=== PATIENT | male | born 1950 | race Caucasian/White ===

== ENCOUNTER → 2017-05-03 | Day surgery (SDC) | payer MEDICARE, OTHER ==
[~2017-05-03] MED LIST: BUPIVACAINE HCL 0.5 % INJ/PF 30 ML SDV ONE; LIDOCAINE 1% INJ-PF (10 MG/ML) 30 ML SDV ONE; METHYLPREDNISOLONE ACETATE INJ 40 MG/1 ML ML ONE
--- NOTE | 2017-05-03 16:16 | RADIOLOGY REPORT (SQ) ---
EXAM DESCRIPTION: ANKLE BILATERAL AP/LAT; INJECT/ASPIR WRIST/ELB/ANKLE; FLUORO/NEEDLE PLACEMENT COMPLETED DATE/TIME: 05/03/2017 3:50 pm REASON FOR STUDY: FLAT FOOT {PES PLANUS} (ACQUIRED), UNSPECIFIED FOOT M21.40 FLAT FOOT PES PLANUS ( ACQUIRED), UNSPECIFIED FOOT COMPARISON: None. FLUOROSCOPY TIME: 58 seconds 2 digital radiographic images saved to PACS. LIMITATIONS: None. PROCEDURE: SITE OF INJECTION: Bilateral talonavicular joint LOCALIZING CONTRAST TYPE AND DOSE: 1 mL of Isovue-300 MEDICATION TYPE AND DOSE: 40 mg of Depo-Medrol, 1 mL of 0.5% bupivacaine in the right talonavicular j oint, 40 mg of Depo-Medrol, 1 mL of 0.5% bupivacaine in the left talonavicular joint. Using local anesthesia and sterile technique with fluoroscopic guidance, the needle was advanced into the joint. Iodinated contrast was injected to verify intraarticular placement. This was followed by therapeutic injection of the indicated medications. The needle was removed. There were no immediat e complications. Preprocedure pain level: 8/10. Postprocedure pain level: 0/10. IMPRESSION: THERAPEUTIC INJECTION OF THE RIGHT AND LEFT TALONAVICULAR JOINTS ABOVE. COMMENT: Patient medication list reviewed: Yes- Quality ID# [id number]:Eligible professional attests to doc umenting in the medical record they obtained, updated, or reviewed the patient's current medications. . Quality ID [id number]: Final reports for procedures using fluoroscopy that document radiation exposure nando mike, or exposure time and number of fluorographic images (if radiation exposure indices are not avail able) TECHNICAL DOCUMENTATION: JOB ID: [id number] [employer]- All Rights Reserved
== END ==
LOC: RAD 14:29
PROVIDERS: ATTEND Nuclear Medicine
PROC: 3E0U33Z Introduction of Anti-inflammatory into Joints, Percutaneous Approach (ICD-10-PCS; principal; 2017-05-03)
DX: M21.40 Flat foot [pes planus] (acquired), unspecified foot (principal)
CPT/HCPCS: 20605; 77002; 73600; J3490; J1020

== ENCOUNTER 2019-01-29 23:34 | Emergency (ER) | payer MEDICARE, OTHER ==
[2019-01-30] MEDS ORDERED: NORMAL SALINE 500 ML IV ONE (00:28)
--- NOTE | 2019-01-30 00:32 | ER Document Report ---
ED General - General Chief Complaint: Fall Stated Complaint: WEAKNESS Time Seen by Provider: 01/29/19 23:43 Primary Care Provider: JOSEPH GALVIN DPM [ACTIVE STAFF] - Follow up as needed Notes: Patient is a pleasant 68-year-old male who presents with complaint of a fall. Patient lives in a private residence with a roommate. He says he was using his walker and stumbled and fell. He once was called he was brought here. Initially was found to be hypotensive events first arrived. Patient's says that he feels fine at this time however he is tachycardic and is weak appearing. Patient denies any recent fevers or infections. Patient denies any pain from the fall. Denies any injuries. He has no other complaints at this time. Patient does have history of PE and is currently on Xarelto. He does have an indwelling Lynn catheter due to history of prostate cancer. He denies any recent changes in his medications. He was recently on doxycycline due to a tick bite but finished that over a week ago. TRAVEL OUTSIDE OF THE [place] IN LAST 30 DAYS: No - Related Data Allergies/Adverse Reactions: No Known Allergies Allergy (Verified 01/29/19 23:54) Past Medical History - Social History Smoking Status: Unknown if Ever Smoked Frequency of alcohol use: None Drug Abuse: None Family History: Reviewed & Not Pertinent Patient has suicidal ideation: No Patient has homicidal ideation: No - Past Medical History Cardiac Medical History: Reports: Hx Congestive Heart Failure, Hx Hypercholesterolemia Renal/ Medical History: Denies: Hx Peritoneal Dialysis Past Surgical History: Reports: Hx Genitourinary Surgery - prostate surgery Review of Systems - Review of Systems Notes: My Normal Review Basic REVIEW OF SYSTEMS: CONSTITUTIONAL : Denies fever, chills, or sweats. Denies recent illness. EENT: Denies eye, ear, throat, or mouth pain or symptoms. Denies nasal or sinus congestion. CARDIOVASCULAR: Denies chest pain. RESPIRATORY: Denies cough, cold, or chest congestion. Denies shortness of breath, difficulty breathing, or wheezing. GASTROINTESTINAL: Denies abdominal pain. Denies nausea, vomiting, or diarrhea. GENITOURINARY: Denies difficulty urinating, painful urination, burning, frequency, or blood in urine. Indwelling Lynn catheter. MUSCULOSKELETAL: Denies neck or back pain or joint pain or swelling. SKIN: Denies rash or skin lesions. NEUROLOGICAL: Denies altered mental status or loss of consciousness. Denies headache. Denies weakness or paralysis or loss of use of either side. Denies problems with gait or speech. Denies sensory or motor loss. ALL OTHER SYSTEMS REVIEWED AND NEGATIVE. Physical Exam - Vital signs Vitals: Resp BP Pulse Ox 20 114/65 94 01/29/19 23:41 01/29/19 23:41 01/29/19 23:41 - Notes Notes: General Appearance: Well nourished, alert, cooperative, no acute distress, no obvious discomfort. Vitals: reviewed, See vital signs table. Head: no swelling or tenderness to the head Eyes: PERRL, EOMI, Conjuctiva clear Mouth: No decreasd moisture Lungs: No wheezing, No rales, No rhonci, No accessory muscle use, good air exchange bilaterally. Heart: Tachycardic rate, Regular rythm, No murmur, no rub Abdomen: Normal BS, soft, No rigidity, No abdominal tenderness, No guarding, no rebound, no abdominal masses, no organomegaly Genital: Lynn catheter in place. No abnormal drainage from around the urethral meatus. Yellow urine in Lynn bag. Extremities: strength 5/5 in all extremities, good pulses in all extremities, no swelling or tenderness in the extremities, no edema. Skin: warm, dry, appropriate color, no rash Neuro: speech clear, oriented x 3, normal affect, responds appropriately to questions. Course - Re-evaluation Re-evalutation: 01/30/19 01:30 Patient is looking feeling improved since the IV fluids. He does have a UTI. I will give a dose of Rocephin and send his urine for culture. He says he feels very well. If he continues to feel well and if his vital signs remained stable then he will likely be discharged home. 01/30/19 03:26 He has received a Rocephin. He continues to say that he feels very well. He says he feels normal and does not feel ill. Vital signs have remained normal since receiving IV fluids. He has no leukocytosis. No evidence of head injury on CT scan. I feel he safe to be discharged home. I strongly encouraged him of low threshold to return to ER if he has fevers, vomiting, weakness, or if he feels unwell in any way. Patient agrees with plan and will be discharged home. Dictation of this chart was performed using voice recognition software; therefore, there may be some unintended grammatical errors. - Vital Signs Vital signs: Temp Pulse Resp BP Pulse Ox 98.2 F 13 124/62 95 01/30/19 02:33 01/30/19 02:01 01/30/19 02:01 01/30/19 02:01 - Laboratory Result Diagrams: 01/29/19 23:44 01/29/19 23:44 Laboratory results interpreted by me: 01/29/19 01/29/19 01/30/19 23:44 23:44 00:13 WBC 11.7 H RBC 3.87 L Hgb 11.5 L Hct 35.0 L Absolute Neutrophils 8.9 H Carbon Dioxide 32 H BUN 22 H Urine Blood SMALL H Urine Nitrite POSITIVE H Ur Leukocyte Esterase LARGE H - EKG Interpretation by Me Additional EKG results interpreted by me: 01/30/19 00:52 EKG is reviewed and interpreted by me. EKG shows sinus tachycardia with a rate of [address] segment elevation or depression. No ischemic T wave inversions. OH interval, QRS duration are within normal range. QTc interval is borderline. No old EKG available for comparison at this time. Discharge - Discharge Clinical Impression: UTI (urinary tract infection) Qualifiers: Urinary tract infection type: site unspecified Hematuria presence: without hematuria Qualified Code(s): N39.0 - Urinary tract infection, site not specified Fall Qualifiers: Encounter type: initial encounter Qualified Code(s): W19.XXXA - Unspecified fall, initial encounter Condition: Good Disposition: HOME, SELF-CARE Additional Instructions: Your urine showed evidence of infection. When you initially arrived your heart rate was a little bit fast but this quickly improved when we gave you some fluids. Please be sure to drink lots of fluids over the next several days. Avoid caffeinated beverages if possible. Take the antibiotics as prescribed. Please call your doctor this morning to make a close follow-up appointment for either or Monday. Please return to the ER immediately if you feel weak, have fevers, vomiting, or feel unwell in any way. Prescriptions: Cephalexin Monohydrate [Keflex 500 mg Capsule] 500 mg PO BID 7 Days #14 capsule
[2019-01-30 00:51] LABS: ABSOLUTE BASOPHILS # (AUTO) 0.1 10^3/uL (0.0-0.2); ABSOLUTE EOSINOPHILS # (AUTO) 0.2 10^3/uL (0.0-0.6); ABSOLUTE LYMPHOCYTES (AUTO) 1.8 10^3/uL (0.5-4.7); ABSOLUTE MONOCYTES (AUTO) 0.7 10^3/uL (0.1-1.4); ABSOLUTE NEUT (AUTO) 8.9 10^3/uL (1.7-8.2); BASOPHILS % (AUTO) 0.6 % (0-2); EOSINOPHILS % (AUTO) 1.5 % (0-6); HEMOGLOBIN 11.5 g/dL (13.5-17.0); LYMPHOCYTES % (AUTO) 15.6 % (13-45); MEAN CORPUSCULAR HEMOGLOBIN 29.6 pg (27.0-33.4); MEAN CORPUSCULAR HGB CONC 32.8 g/dL (32.0-36.0); MEAN CORPUSCULAR VOLUME 90 fl (80-97); MONOCYTES % (AUTO) 6.3 % (3-13); PLATELET COUNT 266 10^3/uL (150-450); RED BLOOD COUNT 3.87 10^6/uL (4.35-5.55); RED CELL DISTRIBUTION WIDTH 13.5 % (11.5-14.0); TOTAL CELLS COUNTED % (AUTO) 100 %; WHITE BLOOD COUNT 11.7 10^3/uL (4.0-10.5)
--- NOTE | 2019-01-30 00:58 | RADIOLOGY REPORT (SQ) ---
EXAM DESCRIPTION: XR CHEST 1 VIEW COMPLETED DATE/TME: 01/30/2019 00:28 CLINICAL HISTORY: 68 years Male, fall COMPARISON: None. NUMBER OF VIEWS/TECHNIQUE: 1/AP FINDINGS: Small obscuration-effusion of the left costophrenic angle. Atherosclerotic vascular disease. Adequate lung volume, clear parenchyma, normal cardiac silhouette, and intact bony thorax. IMPRESSION: No acute cardiopulmonary findings. Small obscuration-effusion of the left costophrenic angle.
[2019-01-30 01:04] LABS: ALANINE AMINOTRANSFERASE 24 U/L (21-72); ALBUMIN 3.6 g/dL (3.5-5.0); ALKALINE PHOSPHATASE 58 U/L (38-126); ANION GAP 8 (5-19); ASPARTATE AMINO TRANSFERASE 26 U/L (17-59); BILIRUBIN,DIRECT 0.3 mg/dL (0.0-0.4); BILIRUBIN,TOTAL 0.4 mg/dL (0.2-1.3); BLOOD UREA NITROGEN 22 mg/dL (7-20); CALCIUM 8.6 mg/dL (8.4-10.2); CARBON DIOXIDE 32 mmol/L (22-30); CHLORIDE 99 mmol/L (98-107); GLUCOSE 102 mg/dL (75-110); POTASSIUM 3.7 mmol/L (3.6-5.0); SODIUM 138.9 mmol/L (137-145); TOTAL PROTEIN 7.2 g/dL (6.3-8.2)
[2019-01-30 01:10] LABS: APPEARANCE,URINE CLEAR; BILIRUBIN,URINE NEGATIVE (NEGATIVE); COLOR,URINE YELLOW; GLUCOSE, URINE NEGATIVE (NEGATIVE); KETONES,URINE NEGATIVE (NEGATIVE); LEUKOCYTE ESTERASE,URINE LARGE (NEGATIVE); NITRITE,URINE POSITIVE (NEGATIVE); PROTEIN,URINE NEGATIVE (NEGATIVE); URINE SPECIFIC GRAVITY 1.009; UROBILINOGEN,URINE NEGATIVE mg/dL (<2.0)
--- NOTE | 2019-01-30 01:21 | RADIOLOGY REPORT (SQ) ---
CLINICAL HISTORY: trauma COMPARISON: None. TECHNIQUE: CT HEAD WITHOUT IV CONTRAST on 01/30/2019 12:27 AM CDT This exam was performed according to our departmental dose-optimization program, which includes automated exposure control, adjustment of the mA and/or kV according to patient size and/or use of iterative reconstruction technique. FINDINGS: There is no acute hemorrhage, mass effect or midline shift. Fuchs-white differentiation is preserved. There is no hydrocephalus. There is no significant volume loss for age. There are mild patchy hypodensities within the periventricular and subcortical white matter, consistent with microangiopathic ischemic changes. The calvarium is intact. Orbits and globes are unremarkable. The paranasal sinuses are clear. Mastoid air cells are clear. IMPRESSION: No acute intracranial findings.
[2019-01-30] MEDS ORDERED: CEFTRIAXONE 1 GM/D5W RTU 1 GM/50 ML RTUPB IV ONE (02:00)
[2019-01-30 04:13] VITALS: BP 111/65
--- NOTE | 2019-01-30 07:50 | EKG REPORT ---
SEVERITY:- BORDERLINE ECG - SINUS TACHYCARDIA LEFT AXIS DEVIATION BORDERLINE T WAVE ABNORMALITIES : Confirmed by: Savannah Garza MD 30-Jan-2019 07:50:08
== END 2019-01-30 05:15 | disposition home or self-care (01) ==
LOC: ER 23:34
DX: N39.0 Urinary tract infection, site not specified (principal); R53.1 Weakness; W01.0XXA Fall on same level from slipping, tripping and stumbling without subsequent striking against object, initial encounter; R00.0 Tachycardia, unspecified; E78.00 Pure hypercholesterolemia, unspecified; I50.9 Heart failure, unspecified; Z86.711 Personal history of pulmonary embolism; Z79.01 Long term (current) use of anticoagulants; Z85.46 Personal history of malignant neoplasm of prostate
CPT/HCPCS: 93005; 99285; 96361; 96365; 36415; 87086; 85025; 87088; 80053; 81001; 84484; 87186; 71045; 70450; 93010; J7040; J0696

== ENCOUNTER 2019-02-13 23:52 | Inpatient (IN) | payer MEDICARE, OTHER ==
--- NOTE | 2019-02-14 00:37 | RADIOLOGY REPORT (SQ) ---
CLINICAL HISTORY: FALL COMPARISON: None. TECHNIQUE: CT HEAD WITHOUT IV CONTRAST on 02/14/2019 12:00 AM CDT This exam was performed according to our departmental dose-optimization program, which includes automated exposure control, adjustment of the mA and/or kV according to patient size and/or use of iterative reconstruction technique. FINDINGS: There is no acute hemorrhage, mass effect or midline shift. Fuchs-white differentiation is preserved. There is no hydrocephalus. There is no significant volume loss for age. There are mild patchy hypodensities within the periventricular and subcortical white matter, consistent with microangiopathic ischemic changes. The calvarium is intact. Orbits and globes are unremarkable. The paranasal sinuses are clear. Mastoid air cells are clear. IMPRESSION: No acute intracranial findings.
--- NOTE | 2019-02-14 00:39 | RADIOLOGY REPORT (SQ) ---
CLINICAL HISTORY: FALL COMPARISON: None. TECHNIQUE: CT CERVICAL SPINE WITHOUT IV CONTRAST on 02/14/2019 12:00 AM CDT This exam was performed according to our departmental dose-optimization program, which includes automated exposure control, adjustment of the mA and/or kV according to patient size and/or use of iterative reconstruction technique. FINDINGS: There is no acute fracture. Alignment is anatomic. There is mild right-sided facet arthritis. There is incomplete fusion of the posterior elements of T1. There is moderate to severe narrowing of the C5-6 and C6-7 discs. Vertebral body heights are preserved. Soft tissues are unremarkable. IMPRESSION: No acute fracture or subluxation.
[2019-02-14 00:46] LABS: ABSOLUTE BASOPHILS # (AUTO) 0.1 10^3/uL (0.0-0.2); ABSOLUTE EOSINOPHILS # (AUTO) 0.2 10^3/uL (0.0-0.6); ABSOLUTE LYMPHOCYTES (AUTO) 1.6 10^3/uL (0.5-4.7); ABSOLUTE MONOCYTES (AUTO) 0.8 10^3/uL (0.1-1.4); BASOPHILS % (AUTO) 0.6 % (0-2); EOSINOPHILS % (AUTO) 2.1 % (0-6); HEMATOCRIT 37.9 % (37.9-51.0); HEMOGLOBIN 12.8 g/dL (13.5-17.0); LYMPHOCYTES % (AUTO) 16.2 % (13-45); MEAN CORPUSCULAR HEMOGLOBIN 29.8 pg (27.0-33.4); MEAN CORPUSCULAR HGB CONC 33.8 g/dL (32.0-36.0); MEAN CORPUSCULAR VOLUME 88 fl (80-97); MONOCYTES % (AUTO) 7.8 % (3-13); PLATELET COUNT 340 10^3/uL (150-450); RED CELL DISTRIBUTION WIDTH 13.6 % (11.5-14.0); SEGMENTED NEUTROPHILS % (AUTO) 73.3 % (42-78); TOTAL CELLS COUNTED % (AUTO) 100 %; WHITE BLOOD COUNT 9.6 10^3/uL (4.0-10.5)
[2019-02-14 00:51] LABS: INTERNATIONAL RATION (INR) 1.07; PROTHROMBIN TIME 13.9 SEC (11.4-15.4)
[2019-02-14 00:52] LABS: PARTIAL THROMBOPLASTIN TIME 28.7 SEC (23.5-35.8)
[2019-02-14 01:13] LABS: ALANINE AMINOTRANSFERASE 24 U/L (21-72); ALBUMIN 4.3 g/dL (3.5-5.0); ALKALINE PHOSPHATASE 61 U/L (38-126); ASPARTATE AMINO TRANSFERASE 30 U/L (17-59); BILIRUBIN,DIRECT 0.3 mg/dL (0.0-0.4); BILIRUBIN,TOTAL 0.6 mg/dL (0.2-1.3); BLOOD UREA NITROGEN 47 mg/dL (7-20); CALCIUM 9.4 mg/dL (8.4-10.2); CHLORIDE 82 mmol/L (98-107); CREATINE KINASE 48 U/L (55-170); GLUCOSE 121 mg/dL (75-110); SODIUM 135.8 mmol/L (137-145); TOTAL PROTEIN 8.2 g/dL (6.3-8.2)
[2019-02-14 01:28] LABS: ANION GAP 16 (5-19)
[2019-02-14 01:29] LABS: CARBON DIOXIDE 38 mmol/L (22-30)
[2019-02-14 01:30] LABS: POTASSIUM 2.8 mmol/L (3.6-5.0)
[2019-02-14 01:41] LABS: CREATINE KINASE MB 0.64 ng/mL (<4.55)
[2019-02-14 01:45] LABS: TROPONIN I < 0.012 ng/mL
--- NOTE | 2019-02-14 01:56 | RADIOLOGY REPORT (SQ) ---
EXAM DESCRIPTION: XR RIGHT SHOULDER 2 OR MORE VIEWS COMPLETED DATE/TME: 02/14/2019 00:48 CLINICAL HISTORY: 68 years, Male, right shoulder pain COMPARISON: None. NUMBER OF VIEWS: TECHNIQUE: LIMITATIONS: None. FINDINGS: No fracture or dislocation. There are degenerative changes involving the acromioclavicular joint. Mineralization of bone appears normal. IMPRESSION: No acute finding. copyright 2010 [employer]- All Rights Reserved
[2019-02-14 02:00] LABS: APPEARANCE,URINE CLOUDY; BILIRUBIN,URINE NEGATIVE (NEGATIVE); COLOR,URINE YELLOW; GLUCOSE, URINE NEGATIVE (NEGATIVE); KETONES,URINE NEGATIVE (NEGATIVE); LEUKOCYTE ESTERASE,URINE LARGE (NEGATIVE); NITRITE,URINE NEGATIVE (NEGATIVE); PROTEIN,URINE 30 mg/dL (NEGATIVE); URINE SPECIFIC GRAVITY 1.011; UROBILINOGEN,URINE NEGATIVE mg/dL (<2.0)
[2019-02-14] MEDS ORDERED: POTASSI CL 20 MEQ/50 ML RIDER 20 MEQ/50 ML RTUPB IV ONE (03:17)
[2019-02-14] MEDS ORDERED: NORMAL SALINE 1000 ML 1,000 ML IV ONE (03:17)
--- NOTE | 2019-02-14 03:49 | ER Document Report ---
ED Syncope and Near Syncope - General Chief Complaint: Syncope Stated Complaint: FALL Time Seen by Provider: 02/14/19 00:35 Mode of Arrival: Medic Information source: Patient TRAVEL OUTSIDE OF THE [place] IN LAST 30 DAYS: No - HPI Patient complains to provider of: Other Episode witnessed (by whom): Yes Single episoded occurred: Single episode. Symptoms prior to episode: Dizziness, Other - Blurred vision. Position/Activity at time of episode: Sitting Quality of pain: No pain Injury location: Head Similar symptoms previously: No Recently seen / treated by doctor: No - Related Data Allergies/Adverse Reactions: No Known Allergies Allergy (Verified 01/29/19 23:54) Past Medical History - Social History Smoking Status: Never Smoker Frequency of alcohol use: None Drug Abuse: None Family History: Reviewed & Not Pertinent Patient has suicidal ideation: No Patient has homicidal ideation: No - Past Medical History Cardiac Medical History: Reports: Hx Congestive Heart Failure, Hx H ypercholesterolemia Renal/ Medical History: Denies: Hx Peritoneal Dialysis Past Surgical History: Reports: Hx Genitourinary Surgery - prostate surgery Review of Systems - Review of Systems Constitutional: No symptoms reported EENT: No symptoms reported Cardiovascular: No symptoms reported Respiratory: No symptoms reported Gastrointestinal: No symptoms reported Genitourinary: No symptoms reported Male Genitourinary: No symptoms reported Musculoskeletal: Joint pain Skin: No symptoms reported Hematologic/Lymphatic: No symptoms reported Neurological/Psychological: Lost consciousness -: Yes All other systems reviewed and negative Physical Exam - Vital signs Vitals: Temp Pulse Resp BP Pulse Ox 98.4 F 96 18 120/72 98 02/13/19 23:59 02/13/19 23:59 02/13/19 23:59 02/13/19 23:59 02/13/19 23:59 Interpretation: Normal - General General appearance: Appears well, Alert - HEENT Head: Normocephalic, Atraumatic Eyes: Normal Pupils: PERRL - Respiratory Respiratory status: No respiratory distress Chest status: Nontender Breath sounds: Normal Chest palpation: Normal - Cardiovascular Rhythm: Regular Heart sounds: Normal auscultation Murmur: No - Abdominal Inspection: Normal Distension: No distension Bowel sounds: Normal Tenderness: Nontender Organomegaly: No organomegaly - Back Back: Normal, Nontender - Extremities General upper extremity: Normal inspection, Nontender, Normal color, Normal ROM, Normal temperature General lower extremity: Normal inspection, Nontender, Normal color, Normal ROM, Normal temperature, Normal weight bearing. No: Mikala's sign - Neurological Neuro grossly intact: Yes Cognition: Normal Orientation: AAOx4 Jax Coma Scale Eye Opening: Spontaneous Jax Coma Scale Verbal: Oriented Jax Coma Scale Motor: Obeys Commands Jax Coma Scale Total: 15 Speech: Normal Motor strength normal: LUE, RUE, LLE, RLE Sensory: Normal - Psychological Associated symptoms: Normal affect, Normal mood - Skin Skin Temperature: Warm Skin Moisture: Dry Skin Color: Normal Notes: Multiple skin tears on the right upper extremity. Course - Vital Signs Vital signs: Temp Pulse Resp BP Pulse Ox 97.4 F 91 18 101/54 L 91 L 02/14/19 19:17 02/14/19 19:17 02/14/19 19:17 02/14/19 19:17 02/14/19 19:17 - Laboratory Result Diagrams: 02/14/19 00:35 02/14/19 13:13 Laboratory results interpreted by me: 02/14/19 02/14/19 02/14/19 00:35 00:35 00:35 RBC 4.30 L Hgb 12.8 L ESR Sodium 135.8 L Potassium 2.8 L* Chloride 82 L Carbon Dioxide 38 H BUN 47 H Creatinine 2.13 H Est GFR ( Amer) 38 L Est GFR (Non-Af Amer) 31 L Glucose 121 H Phosphorus Magnesium 2.4 H Creatine Kinase 48 L TSH Urine Protein Urine Blood Ur Leukocyte Esterase 02/14/19 02/14/19 02/14/19 00:35 00:35 00:35 RBC Hgb ESR 80 H Sodium Potassium Chloride Carbon Dioxide BUN Creatinine Est GFR ( Amer) Est GFR (Non-Af Amer) Glucose Phosphorus 6.1 H Magnesium Creatine Kinase TSH 7.91 H Urine Protein Urine Blood Ur Leukocyte Esterase 02/14/19 01:39 RBC Hgb ESR Sodium Potassium Chloride Carbon Dioxide BUN Creatinine Est GFR ( Amer) Est GFR (Non-Af Amer) Glucose Phosphorus Magnesium Creatine Kinase TSH Urine Protein 30 H Urine Blood SMALL H Ur Leukocyte Esterase LARGE H - Diagnostic Test Radiology reviewed: Image reviewed, Reports reviewed Radiology results interpreted by me: 02/14/19 22:11 CT head and C-spine are negative. - EKG Interpretation by Me Additional EKG results interpreted by me: 02/14/19 22:12 No STEMI. - Transfer of Care Notes: 02/14/19 22:12 Patient will be admitted by the hospitalist specification manager Dr. Jj Woodall for further evaluation and management. Discharge - Discharge Clinical Impression: Hypokalemia, SHAY (acute kidney injury), Skin tear Syncope Qualifiers: Syncope type: unspecified Qualified Code(s): R55 - Syncope and collapse Condition: Stable Disposition: ADMITTED INPATIENT Admitting Provider: Jose C (Hospitalist) Unit Admitted: Telemetry
[2019-02-14] MEDS ORDERED: CEFTRIAXONE 1 GM/D5W RTU 1 GM/50 ML RTUPB IV ONE (04:00)
[2019-02-14] MEDS ORDERED: MAG HYDROX/AL HYDROX/SIMETH SUSP 30 ML UDCUP PO PRN (04:09)
[2019-02-14] MEDS ORDERED: IPRATROPIUM/ALBUTEROL 0.5-2.5 MG/3 ML AMPUL NEB PRN (04:09)
[2019-02-14] MEDS ORDERED: NORMAL SALINE 1000 ML 1,000 ML IV PRN (04:15)
--- NOTE | 2019-02-14 04:31 | PDOC H&P ---
History of Present Illness Admission Date/PCP: 02/14/19 04:10 Patient complains of: Near syncope History of Present Illness: NIKHIL ESCOBAR is a 68 year old male with a complex past medical history suggestive of chronic autoimmune overlap with rheumatoid arthritis, systemic sclerosis, hypercoagulable state on Xarelto, polymyositis, congestive heart failure, COPD, obstructive sleep apnea etc. He presents after feeling dizzy prompting him to sit on a step only to awaken with EMS finding him passed out at the bottom of stairway. He is found to be altered and brought into the emergency room for evaluation where he is found to be profoundly weak with hyp okalemia, acute renal failure and urinary tract infection. He started on empiric antibiotics, potassium replacement referred to the hospitalist for admission. Patient is chronically ill-appearing in a poor historian unable to recall medications but denies narcotic use. Past Medical History Cardiac Medical History: Reports: Congestive Heart Failure, Hyperlipidema, Pulmonary Embolism Pulmonary Medical History: Reports: Chronic Obstructive Pulmonary Disease (COPD), Sleep Apnea Endocrine Medical History: Reports: Obesity GI Medical History: Reports: Cirrhosis Hematology: Reports: Anemia Social History Information Source: Patient, [facility] Records Lives with: Alone Smoking Status: Never Smoker Frequency of Alcohol Use: None Hx Prescription Drug Abuse: No Past Social History Note: Former alcoholism in the - Advance Directive Resuscitation Status: Full Code Family History Family History: Hypertension Parental Family History Reviewed: Yes Children Family History Reviewed: Yes Sibling(s) Family History Reviewed.: Yes Medication/Allergy Home Medications: Cephalexin Monohydrate [Keflex 500 mg Capsule] 500 mg PO BID 7 Days #14 capsule 01/30/19 Allergies/Adverse Reactions: No Known Allergies Allergy (Verified 01/29/19 23:54) Review of Systems ROS unobtainable: Due to mental status Physical Exam Vital Signs: Temp Pulse Resp BP Pulse Ox 98.4 F 96 21 H 120/72 98 02/14/19 01:01 02/13/19 23:59 02/14/19 01:01 02/14/19 01:01 02/14/19 01:01 Intake & Output 02/12/19 02/13/19 02/14/19 11:59 11:59 11:59 Weight 96.8 kg General appearance: PRESENT: cooperative, disheveled, morbidly obese, well- developed, well-nourished Head exam: PRESENT: atraumatic, normocephalic Eye exam: PRESENT: conjunctiva pink, EOMI, PERRLA, other - Right-sided ptosis. ABSENT: scleral icterus Ear exam: PRESENT: normal external ear exam Mouth exam: PRESENT: moist, tongue midline Teeth exam: PRESENT: dental caries, poor dentation Neck exam: ABSENT: carotid bruit, JVD, lymphadenopathy, thyromegaly Respiratory exam: PRESENT: crackles, decreased breath sounds, prolonged expiratory phas, tachypnea. ABSENT: rales, rhonchi, wheezes Cardiovascular exam: PRESENT: RRR, +S1, +S2, tachycardia. ABSENT: diastolic murmur, rubs, systolic murmur Pulses: PRESENT: normal dorsalis pedis pul Vascular exam: PRESENT: normal capillary refill GI/Abdominal exam: PRESENT: normal bowel sounds, soft. ABSENT: distended, guarding, mass, organolmegaly, rebound, tenderness Rectal exam: PRESENT: deferred Extremities exam: PRESENT: full ROM, +1 edema. ABSENT: calf tenderness, clubbing, pedal edema Neurological exam: PRESENT: alert, altered, oriented to person, oriented to p lace, CN II-XII grossly intact. ABSENT: reflexes normal Psychiatric exam: PRESENT: appropriate affect, normal mood. ABSENT: homicidal ideation, suicidal ideation Skin exam: PRESENT: dry, intact, warm. ABSENT: cyanosis, rash Results Laboratory Results: 02/14/19 00:35 02/14/19 00:35 02/14/19 02/14/19 02/14/19 00:35 00:35 00:35 WBC 9.6 RBC 4.30 L Hgb 12.8 L Hct 37.9 MCV 88 MCH 29.8 MCHC 33.8 RDW 13.6 Plt Count 340 Seg Neutrophils % 73.3 Lymphocytes % 16.2 Monocytes % 7.8 Eosinophils % 2.1 Basophils % 0.6 Absolute Neutrophils 7.0 Absolute Lymphocytes 1.6 Absolute Monocytes 0.8 Absolute Eosinophils 0.2 Absolute Basophils 0.1 Sodium 135.8 L Potassium 2.8 L* Chloride 82 L Carbon Dioxide 38 H Anion Gap 16 BUN 47 H Creatinine 2.13 H Est GFR ( Amer) 38 L Est GFR (Non-Af Amer) 31 L Glucose 121 H Calcium 9.4 Magnesium 2.4 H Total Bilirubin 0.6 AST 30 ALT 24 Alkaline Phosphatase 61 Total Protein 8.2 Albumin 4.3 Urine Color Urine Appearance Urine pH Ur Specific Stollings Urine Protein Urine Glucose (UA) Urine Ketones Urine Blood Urine Nitrite Ur Leukocyte Esterase Urine WBC (Auto) Urine RBC (Auto) 02/14/19 01:39 WBC RBC Hgb Hct MCV MCH MCHC RDW Plt Count Seg Neutrophils % Lymphocytes % Monocytes % Eosinophils % Basophils % Absolute Neutrophils Absolute Lymphocytes Absolute Monocytes Absolute Eosinophils Absolute Basophils Sodium Potassium Chloride Carbon Dioxide Anion Gap BUN Creatinine Est GFR ( Amer) Est GFR (Non-Af Amer) Glucose Calcium Magnesium Total Bilirubin AST ALT Alkaline Phosphatase Total Protein Albumin Urine Color YELLOW Urine Appearance CLOUDY Urine pH 7.0 Ur Specific Stollings 1.011 Urine Protein 30 H Urine Glucose (UA) NEGATIVE Urine Ketones NEGATIVE Urine Blood SMALL H Urine Nitrite NEGATIVE Ur Leukocyte Esterase LARGE H Urine WBC (Auto) 66 Urine RBC (Auto) 4 02/14/19 02/14/19 00:35 00:35 Creatine Kinase 48 L CK-MB (CK-2) 0.64 Troponin I < 0.012 Impressions: Cervical Spine CT 02/14/19 00:00 IMPRESSION: No acute fracture or subluxation. Head CT 02/14/19 00:00 IMPRESSION: No acute intracranial findings. Shoulder X-Ray 02/14/19 00:48 IMPRESSION: No acute finding. copyright 2010 [employer]- All Rights Reserved Assessment and Plan - Diagnosis (1) UTI (urinary tract infection) Is this a current diagnosis for this admission?: Yes Plan: Empiric antibiotics Rocephin, follow-up blood and urine culture (2) Generalized weakness Is this a current diagnosis for this admission?: Yes Plan: Multifactorial secondary to UTI, hypokalemia, chronic illness and debility, follow-up therapy consult (3) SHAY (acute kidney injury) Is this a current diagnosis for this admission?: Yes Plan: Unclear cause, possibly UTI related IV fluid challenge, avoid nephrotoxic meds and doses, follow-up chemistry (4) Hypokalemia Is this a current diagnosis for this admission?: Yes (5) Syncope Qualifiers: Syncope type: unspecified Qualified Code(s): R55 - Syncope and collapse Is this a current diagnosis for this admission?: Yes Plan: Telemetry monitoring physical, orthostatic blood pressures and therapy evaluation - Time Time Spent with patient: 35 or more minutes - Inpatient Certification Medical Necessity: Need Close Monitoring Due to Risk of Patient Decompensation
[2019-02-14] MEDS: POTASSI CL 20 MEQ/50 ML RIDER 20 MEQ/50 ML RTUPB IV SCH ×2 (06:16→10:50)
[2019-02-14] MEDS: HEPARIN SOD (PORCINE) 5,000 UNIT/ML 1 ML SYRINGE SUBCUT SCH ×3 (06:29→21:27)
[2019-02-14] MEDS: LOSARTAN POTASSIUM 25 MG TABLET PO SCH ×2 (10:49→21:23)
[2019-02-14] MEDS: DOCUSATE SODIUM 100 MG CAPSULE PO SCH ×2 (10:49→18:48)
[2019-02-14] MEDS: PSYLLIUM SEED-SF 5.85 GM PACKET PO SCH (10:50)
[2019-02-14 12:00] LABS: FREE T3 4.11 pg/mL (2.77-5.27); FREE T4 (FREE THYROXINE) 1.41 ng/dL (0.78-2.19)
[2019-02-14 12:17] LABS: URINE AMPHETAMINES SCREEN NEGATIVE; URINE BARBITURATES SCREEN NEGATIVE; URINE BENZODIAZEPINES SCREEN NEGATIVE; URINE COCAINE SCREEN NEGATIVE; URINE MARIJUANA (THC) SCREEN NEGATIVE; URINE METHADONE SCREEN NEGATIVE; URINE PHENCYCLIDINE SCREEN NEGATIVE
--- NOTE | 2019-02-14 12:30 | RADIOLOGY REPORT (SQ) ---
EXAM DESCRIPTION: U/S RETROPERITON (RENAL/AORTA) COMPLETED DATE/TIME: 02/14/2019 12:05 pm REASON FOR STUDY: arf COMPARISON: None. TECHNIQUE: Dynamic and static grayscale images acquired of the kidneys and bladder and recorded on P ACS. Additional selected color Doppler and spectral images recorded. LIMITATIONS: Body habitus, limited patient compliance FINDINGS: RIGHT KIDNEY: Normal size, 11.3 cm in length. Normal echogenicity. No solid or suspicious masses. No hydronephrosis. No calcifications. LEFT KIDNEY: Normal size, 11.3 cm in length. Normal echogenicity. No solid or suspicious masses. No hydronephrosis. No calcifications. BLADDER: Decompressed with a Lynn catheter. OTHER FINDINGS: No other significant finding. IMPRESSION: No hydronephrosis. Bladder drained by Lynn catheter TECHNICAL DOCUMENTATION: JOB ID: [id number] [employer]- All Rights Reserved Reading location - IP/workstation name: [email or web address]
[2019-02-14 14:01] LABS: ANION GAP 11 (5-19); BLOOD UREA NITROGEN 36 mg/dL (7-20); CALCIUM 9.1 mg/dL (8.4-10.2); CARBON DIOXIDE 39 mmol/L (22-30); CHLORIDE 86 mmol/L (98-107); GLUCOSE 131 mg/dL (75-110); SODIUM 135.5 mmol/L (137-145)
[2019-02-14 14:10] LABS: POTASSIUM 2.9 mmol/L (3.6-5.0)
[2019-02-14] MEDS ORDERED: POTASSIUM CHLORIDE 20 MEQ/50 ML RTU IV ONE (15:00)
[2019-02-14] MEDS: POTASSIUM CHLORIDE 20 MEQ/50 ML RTU IV SCH ×2 (15:30→18:49)
[2019-02-14] MEDS ORDERED: POTASSIUM CHLORIDE 10 MEQ CAPSULE.ER PO ONE (15:30)
--- NOTE | 2019-02-14 18:04 | PDOC PROGRESS REPORT ---
Subjective Progress Note for:: 02/14/19 Subjective:: This is a 68 yr old male with a PMH of possible autoimmune disorders including RA, systemic sclerosis, polymyositis, CHF, COPD and VIKKI who was admitted earlier this morning for syncope. Presentation, he was noted to be severely hypokalemic. He was also noted to be in acute renal failure and was found to have a UTI. Upon encounter, patient appears comfortable and appears to be more conversant. He relates that he has been having leg cramps in the past few days but is otherwise on his baseline until last night when he was walking up the stairs when he felt weak on both his legs. He says he sat on the stairs but felt dizzy and passed out for less than 10 seconds. He regained consciousness and did not have any urinary or bowel incontinence or confusion. He called EMS and he says that when they tried to sit him up again, he passed out again for a few seconds. When asked about his past medical history, he says that aside from his sleep apnea and fibromyalgia, he is not aware that he has been diagnosed with any autoimmune disorders. He does say that he has chronic generalized muscle pain and tenderness but thought this was from fibromyalgia. He does say he has difficulty ambulating at home and always uses a walker. Hr fes express that he and his daughters thinks he should go to a short-term rehab as he lives alone and has been having difficulty walking and doing things at home. He has an indwelling Lynn catheter and says that this was placed by Dr. Louis more than a week ago because he has been having urinary retention and urinary straining. Reason For Visit: UTI,ARF,PRESYNCOPE Physical Exam Vital Signs: Temp Pulse Resp BP Pulse Ox 97.4 F 91 16 108/52 L 93 02/14/19 14:53 02/14/19 14:53 02/14/19 14:53 02/14/19 14:53 02/14/19 14:53 Intake & Output 02/13/19 02/14/19 02/15/19 06:59 06:59 06:59 Intake Total 50 1150 Balance 50 1150 Weight 213 lb 6.519 oz 204 lb 12.951 oz General appearance: PRESENT: no acute distress, well-developed, well-nourished Head exam: PRESENT: atraumatic, normocephalic Eye exam: PRESENT: conjunctiva pink, EOMI, PERRLA. ABSENT: scleral icterus Ear exam: PRESENT: normal external ear exam Mouth exam: PRESENT: moist, tongue midline Neck exam: ABSENT: carotid bruit, JVD, lymphadenopathy, thyromegaly Respiratory exam: PRESENT: clear to auscultation alfredo. ABSENT: rales, rhonchi, wheezes Cardiovascular exam: PRESENT: RRR. ABSENT: diastolic murmur, rubs, systolic murmur Pulses: PRESENT: normal dorsalis pedis pul GI/Abdominal exam: PRESENT: distended, normal bowel sounds, soft. ABSENT: guarding, mass, organolmegaly, rebound, tenderness Rectal exam: PRESENT: deferred Extremities exam: PRESENT: full ROM. ABSENT: calf tenderness, clubbing, pedal edema Neurological exam: PRESENT: alert, awake, oriented to person, oriented to place, oriented to time, oriented to situation, CN II-XII grossly intact. ABSENT: motor sensory deficit Results Laboratory Results: 02/14/19 00:35 02/14/19 13:13 02/14/19 02/14/19 02/14/19 00:35 00:35 00:35 WBC 9.6 RBC 4.30 L Hgb 12.8 L Hct 37.9 MCV 88 MCH 29.8 MCHC 33.8 RDW 13.6 Plt Count 340 Seg Neutrophils % 73.3 Lymphocytes % 16.2 Monocytes % 7.8 Eosinophils % 2.1 Basophils % 0.6 Absolute Neutrophils 7.0 Absolute Lymphocytes 1.6 Absolute Monocytes 0.8 Absolute Eosinophils 0.2 Absolute Basophils 0.1 Sodium 135.8 L Potassium 2.8 L* Chloride 82 L Carbon Dioxide 38 H Anion Gap 16 BUN 47 H Creatinine 2.13 H Est GFR ( Amer) 38 L Est GFR (Non-Af Amer) 31 L Glucose 121 H Calcium 9.4 Phosphorus Magnesium 2.4 H Total Bilirubin 0.6 AST 30 ALT 24 Alkaline Phosphatase 61 Total Protein 8.2 Albumin 4.3 TSH Free T4 Free T3 pg/mL Urine Color Urine Appearance Urine pH Ur Specific [place] Urine Protein Urine Glucose (UA) Urine Ketones Urine Blood Urine Nitrite Ur Leukocyte Esterase Urine WBC (Auto) Urine RBC (Auto) 02/14/19 02/14/19 02/14/19 00:35 00:35 00:35 WBC RBC Hgb Hct MCV MCH MCHC RDW Plt Count Seg Neutrophils % Lymphocytes % Monocytes % Eosinophils % Basophils % Absolute Neutrophils Absolute Lymphocytes Absolute Monocytes Absolute Eosinophils Absolute Basophils Sodium Potassium Chloride Carbon Dioxide Anion Gap BUN Creatinine Est GFR ( Amer) Est GFR (Non-Af Amer) Glucose Calcium Phosphorus 6.1 H Magnesium Total Bilirubin AST ALT Alkaline Phosphatase Total Protein Albumin TSH 7.91 H Free T4 1.41 Free T3 pg/mL 4.11 Urine Color Urine Appearance Urine pH Ur Specific [place] Urine Protein Urine Glucose (UA) Urine Ketones Urine Blood Urine Nitrite Ur Leukocyte Esterase Urine WBC (Auto) Urine RBC (Auto) 02/14/19 02/14/19 01:39 13:13 WBC RBC Hgb Hct MCV MCH MCHC RDW Plt Count Seg Neutrophils % Lymphocytes % Monocytes % Eosinophils % Basophils % Absolute Neutrophils Absolute Lymphocytes Absolute Monocytes Absolute Eosinophils Absolute Basophils Sodium 135.5 L Potassium 2.9 L* Chloride 86 L Carbon Dioxide 39 H Anion Gap 11 BUN 36 H Creatinine 1.18 Est GFR ( Amer) > 60 Est GFR (Non-Af Amer) > 60 Glucose 131 H Calcium 9.1 Phosphorus Magnesium Total Bilirubin AST ALT Alkaline Phosphatase Total Protein Albumin TSH Free T4 Free T3 pg/mL Urine Color YELLOW Urine Appearance CLOUDY Urine pH 7.0 Ur Specific [place] 1.011 Urine Protein 30 H Urine Glucose (UA) NEGATIVE Urine Ketones NEGATIVE Urine Blood SMALL H Urine Nitrite NEGATIVE Ur Leukocyte Esterase LARGE H Urine WBC (Auto) 66 Urine RBC (Auto) 4 02/14/19 02/14/19 00:35 00:35 Creatine Kinase 48 L CK-MB (CK-2) 0.64 Troponin I < 0.012 Impressions: Cervical Spine CT 02/14/19 00:00 IMPRESSION: No acute fracture or subluxation. Head CT 02/14/19 00:00 IMPRESSION: No acute intracranial findings. Renal Ultrasound 02/14/19 00:00 IMPRESSION: No hydronephrosis. Bladder drained by Lynn catheter Shoulder X-Ray 02/14/19 00:48 IMPRESSION: No acute finding. copyright 2010 [employer]- All Rights Reserved Assessment and Plan - Diagnosis (1) SHAY (acute kidney injury) Is this a current diagnosis for this admission?: Yes Plan: Continue IV fluids. Repeat BMP. (2) Hypokalemia Is this a current diagnosis for this admission?: Yes Plan: Repeat potassium only went up to 2.9 after getting 60 mics of IV potassium. Appears patient is on chronic potassium replacement and likely has chronic issues with low potassium. Note that BMP also shows significantly elevated HCO3. He may need further work-up for possible renal/endocrine disorders causing concomitant hypokalemia and alkalosis there is persistence of hypokalemia and alkalosis. Magnesium level is normal. Will also check an ABG to assess for acid-base balance rafted disorder. (3) Syncope Qualifiers: Syncope type: unspecified Qualified Code(s): R55 - Syncope and collapse Is this a current diagnosis for this admission?: Yes Plan: Will order for orthostats q6 hours. We will also check carotid dopplers. (4) Autoimmune disease Is this a current diagnosis for this admission?: Yes Plan: We will obtain records from PCP including notes and work-up/labs already done before pursuing further autoimmune work-up. (5) UTI (urinary tract infection) Is this a current diagnosis for this admission?: Yes Plan: Continue Rocephin. - Time Time Spent with patient: 25-34 minutes
--- NOTE | 2019-02-14 18:33 | EKG REPORT ---
SEVERITY:- ABNORMAL ECG - SINUS RHYTHM NONSPECIFIC IVCD WITH LAD : Confirmed by: Kaitlynn Amezcua 14-Feb-2019 18:33:25
[2019-02-14 18:46] LABS: ARTERIAL BLOOD BASE EXCESS 11.8 mmol/L; ARTERIAL BLOOD H2CO3 1.55 mmol/L (1.05-1.35); ARTERIAL BLOOD HCO3 37.3 mmol/L (20-24); ARTERIAL BLOOD O2 SATURATION 93.8 % (94-98); ARTERIAL BLOOD PCO2 51.5 mmHg (35-45); ARTERIAL BLOOD PH 7.48 (7.35-7.45); ARTERIAL BLOOD PO2 65.5 mmHg (80-100); ARTERIAL BLOOD TOTAL CO2 38.9 mmol/L (23-27)
[2019-02-14 18:49] LABS: ARTERIAL BLOOD FIO2 21%
[2019-02-14] MEDS: GABAPENTIN 400 MG CAPSULE PO SCH (21:27)
[2019-02-14] MEDS: POTASSIUM CHLORIDE 10 MEQ CAPSULE.ER PO SCH (21:27)
[2019-02-15 05:04] LABS: ABSOLUTE EOSINOPHILS # (AUTO) 0.3 10^3/uL (0.0-0.6); ABSOLUTE LYMPHOCYTES (AUTO) 2.1 10^3/uL (0.5-4.7); ABSOLUTE MONOCYTES (AUTO) 0.6 10^3/uL (0.1-1.4); ABSOLUTE NEUT (AUTO) 3.7 10^3/uL (1.7-8.2); BASOPHILS % (AUTO) 0.2 % (0-2); EOSINOPHILS % (AUTO) 4.1 % (0-6); HEMATOCRIT 36.4 % (37.9-51.0); HEMOGLOBIN 12.1 g/dL (13.5-17.0); LYMPHOCYTES % (AUTO) 31.3 % (13-45); MEAN CORPUSCULAR HEMOGLOBIN 29.8 pg (27.0-33.4); MEAN CORPUSCULAR HGB CONC 33.2 g/dL (32.0-36.0); MEAN CORPUSCULAR VOLUME 90 fl (80-97); MONOCYTES % (AUTO) 9.4 % (3-13); PLATELET COUNT 284 10^3/uL (150-450); RED BLOOD COUNT 4.06 10^6/uL (4.35-5.55); RED CELL DISTRIBUTION WIDTH 13.7 % (11.5-14.0); TOTAL CELLS COUNTED % (AUTO) 100 %; WHITE BLOOD COUNT 6.7 10^3/uL (4.0-10.5)
[2019-02-15 05:25] LABS: ALANINE AMINOTRANSFERASE 18 U/L (21-72); ALBUMIN 3.7 g/dL (3.5-5.0); ALKALINE PHOSPHATASE 51 U/L (38-126); ASPARTATE AMINO TRANSFERASE 25 U/L (17-59); BILIRUBIN,DIRECT 0.2 mg/dL (0.0-0.4); BILIRUBIN,TOTAL 0.6 mg/dL (0.2-1.3); BLOOD UREA NITROGEN 26 mg/dL (7-20); CALCIUM 9.3 mg/dL (8.4-10.2); GLUCOSE 91 mg/dL (75-110); POTASSIUM 3.6 mmol/L (3.6-5.0); TOTAL PROTEIN 7.2 g/dL (6.3-8.2)
[2019-02-15 05:30] LABS: CARBON DIOXIDE 38 mmol/L (22-30); CHLORIDE 93 mmol/L (98-107); SODIUM 137.5 mmol/L (137-145)
[2019-02-15 05:35] LABS: ANION GAP 7 (5-19)
[2019-02-15] MEDS ORDERED: CEFTRIAXONE 1 GM/D5W RTU 1 GM/50 ML RTUPB IV ONE (05:50)
[2019-02-15] MEDS ORDERED: CEFTRIAXONE 1 GM/D5W RTU 1 GM/50 ML RTUPB IV SCH (06:00)
[2019-02-15] MEDS: POTASSIUM CHLORIDE 10 MEQ CAPSULE.ER PO SCH ×3 (06:04→21:55)
[2019-02-15] MEDS: HEPARIN SOD (PORCINE) 5,000 UNIT/ML 1 ML SYRINGE SUBCUT SCH ×2 (06:04→14:58)
[2019-02-15] MEDS: GABAPENTIN 400 MG CAPSULE PO SCH ×2 (06:04→14:58)
[2019-02-15] MEDS: LOSARTAN POTASSIUM 25 MG TABLET PO SCH ×2 (09:59→21:55)
[2019-02-15] MEDS: DOCUSATE SODIUM 100 MG CAPSULE PO SCH ×2 (09:59→17:49)
[2019-02-15] MEDS: PSYLLIUM SEED-SF 5.85 GM PACKET PO SCH (10:00)
--- NOTE | 2019-02-15 10:56 | RADIOLOGY REPORT (SQ) ---
EXAM DESCRIPTION: CT ABD/PELVIS NO ORAL OR IV COMPLETED DATE/TIME: 02/15/2019 10:16 am REASON FOR STUDY: abdominal distention COMPARISON: None. TECHNIQUE: CT scan of the abdomen and pelvis performed without intravenous or oral contrast. Images reviewed with lung, soft tissue, and bone windows. Reconstructed coronal and sagittal MPR images revi ewed. All images stored on PACS. All CT scanners at this facility use dose modulation, iterative reconstruction, and/or weight based d osing when appropriate to reduce radiation dose to as low as reasonably achievable (ALARA). [facility]: Dose Right [facility]: CareDose [facility]: Dose Right [facility]: Teradose 4D [facility]: [employer] RADIATION DOSE: mGy. LIMITATIONS: None. FINDINGS: LOWER CHEST: No significant findings. No nodules or infiltrates. NON-CONTRASTED LIVER, SPLEEN, ADRENALS: Evaluation limited by lack of IV contrast. No identified sign ificant masses. PANCREAS: No masses. No peripancreatic inflammatory changes. GALLBLADDER: Contracted. No stones. RIGHT KIDNEY AND URETER: No suspicious masses. Assessment limited by lack of IV contrast. No signif icant calcifications. No hydronephrosis or hydroureter. LEFT KIDNEY AND URETER: No suspicious masses. Assessment limited by lack of IV contrast. No signifi cant calcifications. No hydronephrosis or hydroureter. AORTA AND RETROPERITONEUM: No aneurysm. No retroperitoneal masses or adenopathy. BOWEL AND PERITONEAL CAVITY: No obvious masses or inflammatory changes. No free fluid. APPENDIX: Normal. PELVIS, BLADDER, AND ABDOMINAL WALL:There is a catheter in the bladder. There is no pelvic mass or f luid collection. There is an uncomplicated right inguinal hernia containing only fat. BONES: No significant findings. OTHER: No other significant finding. IMPRESSION: No acute finding in the abdomen or pelvis. Uncomplicated right inguinal hernia. COMMENT: Quality ID # [id number]: Final reports with documentation of one or more dose reduction techniques (e.g., Automated exposure control, adjustment of the mA and/or kV according to patient size, use of iterative reconstruction technique) TECHNICAL DOCUMENTATION: JOB ID: [id number] [email or web address]- All Rights Reserved Reading location - IP/workstation name: [email or web address]
--- NOTE | 2019-02-15 15:20 | PDOC PROGRESS REPORT ---
Subjective Progress Note for:: 02/15/19 Subjective:: 02/14: This is a 68 yr old male with a PMH of possible autoimmune disorders including RA, systemic sclerosis, polymyositis, CHF, COPD and VIKKI who was admitted earlier this morning for syncope. Presentation, he was noted to be severely hypokalemic. He was also noted to be in acute renal failure and was found to have a UTI. Upon encounter, patient appears comfortable and appears to be more conversant. He relates that he has been having leg cramps in the past few days but is otherwise on his baseline until last night when he was walking up the stairs when he felt weak on both his legs. He says he sat on the stairs but felt dizzy and passed out for less than 10 seconds. He regained consciousness and did not have any urinary or bowel incontinence or confusion. He called EMS and he says that when they tried to sit him up again, he passed out again for a few seconds. When asked about his past medical history, he says that aside from his sleep apnea and fibromyalgia, he is not aware that he has been diagnosed with any autoimmune disorders. He does say that he has chronic generalized muscle pain and tenderness but thought this was from fibromyalgia. He does say he has difficulty ambulating at home and always uses a walker. He expressed that he and his daughters thinks he should go to a short-term rehab or penitentiary as he lives alone and has been having difficulty walking and doing things at home. He has an indwelling Lynn catheter and says that this was placed by Dr. Louis more than a week ago because he has been having urinary retention and urinary straining. 02/15: No acute event overnight. He appears comfortable. He says he feels better today. Orthostats have been negative so far. Potassium is improved. Carotid Dopplers pending. Awaiting for records from PCP. Will initiate process for SNF/rehab placement today. Reason For Visit: UTI,ARF,PRESYNCOPE Physical Exam Vital Signs: Temp Pulse Resp BP Pulse Ox 98.1 F 90 20 104/58 L 94 02/15/19 07:20 02/15/19 11:38 02/15/19 11:38 02/15/19 07:22 02/15/19 11:38 Intake & Output 02/14/19 02/15/19 02/16/19 06:59 06:59 06:59 Intake Total 50 2020 Output Total 2300 Balance 50 -280 Weight 213 lb 6.519 oz 203 lb 14.841 oz General appearance: PRESENT: no acute distress, well-developed, well-nourished Head exam: PRESENT: atraumatic, normocephalic Eye exam: PRESENT: conjunctiva pink, EOMI, PERRLA. ABSENT: scleral icterus Ear exam: PRESENT: normal external ear exam Mouth exam: PRESENT: moist, tongue midline Neck exam: ABSENT: carotid bruit, JVD, lymphadenopathy, thyromegaly Respiratory exam: PRESENT: clear to auscultation alfredo. ABSENT: rales, rhonchi, wheezes Cardiovascular exam: PRESENT: RRR. ABSENT: diastolic murmur, rubs, systolic mur mur Pulses: PRESENT: normal dorsalis pedis pul GI/Abdominal exam: PRESENT: normal bowel sounds, soft. ABSENT: distended, guarding, mass, organolmegaly, rebound, tenderness Rectal exam: PRESENT: deferred Extremities exam: PRESENT: full ROM. ABSENT: calf tenderness, clubbing, pedal edema Neurological exam: PRESENT: alert, awake, oriented to person, oriented to place, oriented to time, oriented to situation, CN II-XII grossly intact. ABSENT: motor sensory deficit Results Laboratory Results: 02/15/19 04:45 02/15/19 04:45 02/14/19 02/14/19 02/15/19 18:30 21:59 04:45 WBC 6.7 RBC 4.06 L Hgb 12.1 L Hct 36.4 L MCV 90 MCH 29.8 MCHC 33.2 RDW 13.7 Plt Count 284 Seg Neutrophils % 55.0 Lymphocytes % 31.3 Monocytes % 9.4 Eosinophils % 4.1 Basophils % 0.2 Absolute Neutrophils 3.7 Absolute Lymphocytes 2.1 Absolute Monocytes 0.6 Absolute Eosinophils 0.3 Absolute Basophils 0.0 Carbonic Acid 1.55 H HCO3/H2CO3 Ratio 24:1 ABG pH 7.48 H ABG pCO2 51.5 H ABG pO2 65.5 L ABG HCO3 37.3 H ABG O2 Saturation 93.8 L ABG Base Excess 11.8 FiO2 21% Sodium Potassium 3.6 Chloride Carbon Dioxide Anion Gap BUN Creatinine Est GFR ( Amer) Est GFR (Non-Af Amer) Glucose Calcium Total Bilirubin AST ALT Alkaline Phosphatase Total Protein Albumin 02/15/19 04:45 WBC RBC Hgb Hct MCV MCH MCHC RDW Plt Count Seg Neutrophils % Lymphocytes % Monocytes % Eosinophils % Basophils % Absolute Neutrophils Absolute Lymphocytes Absolute Monocytes Absolute Eosinophils Absolute Basophils Carbonic Acid HCO3/H2CO3 Ratio ABG pH ABG pCO2 ABG pO2 ABG HCO3 ABG O2 Saturation ABG Base Excess FiO2 Sodium 137.5 Potassium 3.6 Chloride 93 L Carbon Dioxide 38 H Anion Gap 7 BUN 26 H Creatinine 1.02 Est GFR ( Amer) > 60 Est GFR (Non-Af Amer) > 60 Glucose 91 Calcium 9.3 Total Bilirubin 0.6 AST 25 ALT 18 L Alkaline Phosphatase 51 Total Protein 7.2 Albumin 3.7 02/14/19 02/14/19 00:35 00:35 Creatine Kinase 48 L CK-MB (CK-2) 0.64 Troponin I < 0.012 Impressions: Abdomen/Pelvis CT 02/14/19 00:00 IMPRESSION: No acute finding in the abdomen or pelvis. Uncomplicated right inguinal hernia. Cervical Spine CT 02/14/19 00:00 IMPRESSION: No acute fracture or subluxation. Head CT 02/14/19 00:00 IMPRESSION: No acute intracranial findings. Renal Ultrasound 02/14/19 00:00 IMPRESSION: No hydronephrosis. Bladder drained by Lynn catheter Shoulder X-Ray 02/14/19 00:48 IMPRESSION: No acute finding. copyright 2010 [employer]- All Rights Reserved Assessment and Plan - Diagnosis (1) SHAY (acute kidney injury) Is this a current diagnosis for this admission?: Yes Plan: 02/15: Resolved with IV fluids. Creatinine has trended down to 1.0 from 2.3. (2) Hypokalemia Is this a current diagnosis for this admission?: Yes Plan: 02/14: Repeat potassium only went up to 2.9 after getting 60 mics of IV potassium. Appears patient is on chronic potassium replacement and likely has chronic issues with low potassium. Note that BMP also shows significantly elevated HCO3. He may need further work-up for possible renal/endocrine disorders causing concomitant hypokalemia and alkalosis there is persistence of hypokalemia and alkalosis. Magnesium level is normal. Will also check an ABG to assess for acid-base balance rafted disorder. 02/15: Resolved. Repeat potassium at 3.6. Continue scheduled p.o. potassium (home regimen). (3) Syncope Qualifiers: Syncope type: unspecified Qualified Code(s): R55 - Syncope and collapse Is this a current diagnosis for this admission?: Yes Plan: Possibly from dehydration and hypokalemia as patient did say he was drinking less at home and was found to have acute renal failure and hypokalemia upon presentation. Orthostats have been negative so far. Carotid Dopplers pending. (4) Autoimmune disease Is this a current diagnosis for this admission?: Yes Plan: 02/14: We will obtain records from PCP including notes and work-up/labs already done before pursuing further autoimmune work-up. 02/15: Awaiting for records from PCP. (5) UTI (urinary tract infection) Is this a current diagnosis for this admission?: Yes Plan: Continue Rocephin. Urine culture growing gram-negative rods. - Time Time Spent with patient: 25-34 minutes
--- NOTE | 2019-02-15 16:20 | RADIOLOGY REPORT (SQ) ---
EXAM DESCRIPTION: CAROTID DOPPLER COMPLETED DATE/TIME: 02/15/2019 3:52 pm REASON FOR STUDY: syncope COMPARISON: None. TECHNIQUE: Grayscale ultrasound, Doppler velocity and spectra, and color Doppler images acquired of the extra-cranial carotid and vertebral arteries. Images stored on PACS. LIMITATIONS: None. FINDINGS: RIGHT CAROTID CCA Velocities: Within normal limits. ICA Velocities Peak systolic 94 cm/s. End diastolic 23 cm/s. Proximal ICA/CCA peak systolic ratio 1.0. There is moderate plaque in the carotid bulb and proximal ICA. LEFT CAROTID CCA Velocities: Within normal limits. ICA Velocities Peak systolic 109 cm/s. End diastolic 35 cm/s. Proximal ICA/CCA peak systolic ratio 1.0. Spectra normal. No significant plaque. VERTEBRAL ARTERIES: Antegrade flow. Normal waveforms. SUBCLAVIAN ARTERIES: No finding. OTHER: No other significant finding. IMPRESSION: NO HEMODYNAMICALLY SIGNIFICANT STENOSIS. COMMENT: Quality ID #[id number]: Velocity criteria are extrapolated from the diameter data as defined by t he Society of Radiologists in Ultrasound Consensus Conference. Radiology 2003: 229; 340-346. TECHNICAL DOCUMENTATION: JOB ID: [id number] [employer]- All Rights Reserved Reading location - IP/workstation name: [email or web address]
[2019-02-15] MEDS: GABAPENTIN 300 MG CAPSULE PO SCH (21:54)
[2019-02-15] MEDS: RIVAROXABAN 10 MG TABLET PO SCH (21:55)
[2019-02-16] MEDS: POTASSIUM CHLORIDE 10 MEQ CAPSULE.ER PO SCH ×3 (06:31→21:50)
[2019-02-16] MEDS: CEFTRIAXONE SODIUM 1,000 MG in DEXTROSE 5%-WATER 50 ML IV SCH (06:31)
[2019-02-16] MEDS: GABAPENTIN 300 MG CAPSULE PO SCH ×2 (10:55→21:49)
[2019-02-16] MEDS: LOSARTAN POTASSIUM 25 MG TABLET PO SCH ×2 (10:56→21:50)
[2019-02-16] MEDS: DOCUSATE SODIUM 100 MG CAPSULE PO SCH ×2 (10:56→18:31)
[2019-02-16] MEDS: PSYLLIUM SEED-SF 5.85 GM PACKET PO SCH (10:59)
--- NOTE | 2019-02-16 13:33 | PDOC PROGRESS REPORT ---
Subjective Progress Note for:: 02/16/19 Subjective:: 02/14: This is a 68 yr old male with a PMH of possible autoimmune disorders including RA, systemic sclerosis, polymyositis, CHF, COPD and VIKKI who was admitted earlier this morning for syncope. Presentation, he was noted to be severely hypokalemic. He was also noted to be in acute renal failure and was found to have a UTI. Upon encounter, patient appears comfortable and appears to be more conversant. He relates that he has been having leg cramps in the past few days but is otherwise on his baseline until last night when he was walking up the stairs when he felt weak on both his legs. He says he sat on the stairs but felt dizzy and passed out for less than 10 seconds. He regained consciousness and did not have any urinary or bowel incontinence or confusion. He called EMS and he says that when they tried to sit him up again, he passed out again for a few seconds. When asked about his past medical history, he says that aside from his sleep apnea and fibromyalgia, he is not aware that he has been diagnosed with any autoimmune disorders. He does say that he has chronic generalized muscle pain and tenderness but thought this was from fibromyalgia. He does say he has difficulty ambulating at home and always uses a walker. He expressed that he and his daughters thinks he should go to a short-term rehab or snf as he lives alone and has been having difficulty walking and doing things at home. He has an indwelling Lynn catheter and says that this was placed by Dr. Louis more than a week ago because he has been having urinary retention and urinary straining. 02/15: He appears comfortable. He says he feels better today. Orthostats have been negative so far. Potassium is improved. Carotid Dopplers pending. Awaiting for records from PCP. Will initiate process for SNF/rehab placement today. 02/16: No acute event overnight. He is at his baseline and denies any acute symptom or complaint. Awaiting placement for SNF/rehab. Reason For Visit: UTI,ARF,PRESYNCOPE Physical Exam Vital Signs: Temp Pulse Resp BP Pulse Ox 98.7 F 90 16 95/54 L 95 02/16/19 09:09 02/16/19 10:47 02/16/19 10:47 02/16/19 09:09 02/16/19 10:47 Intake & Output 02/15/19 02/16/19 02/17/19 06:59 06:59 06:59 Intake Total 2020 640 50 Output Total 2300 1025 Balance -280 -385 50 Weight 203 lb 14.841 oz 179 lb 10.828 oz General appearance: PRESENT: no acute distress, well-developed, well-nourished Head exam: PRESENT: atraumatic, normocephalic Eye exam: PRESENT: conjunctiva pink, EOMI, PERRLA. ABSENT: scleral icterus Ear exam: PRESENT: normal external ear exam Mouth exam: PRESENT: moist, tongue midline Neck exam: ABSENT: carotid bruit, JVD, lymphadenopathy, thyromegaly Respiratory exam: PRESENT: clear to auscultation alfredo. ABSENT: rales, rhonchi, wheezes Cardiovascular exam: PRESENT: RRR. ABSENT: diastolic murmur, rubs, systolic murmur Pulses: PRESENT: normal dorsalis pedis pul GI/Abdominal exam: PRESENT: normal bowel sounds, soft. ABSENT: distended, guarding, mass, organolmegaly, rebound, tenderness Rectal exam: PRESENT: deferred Extremities exam: PRESENT: full ROM. ABSENT: calf tenderness, clubbing, pedal edema Neurological exam: PRESENT: alert, awake, oriented to person, oriented to place, oriented to time, oriented to situation, CN II-XII grossly intact. ABSENT: motor sensory deficit Results Laboratory Results: 02/15/19 04:45 02/15/19 04:45 02/14/19 02/14/19 00:35 00:35 Creatine Kinase 48 L CK-MB (CK-2) 0.64 Troponin I < 0.012 Impressions: Abdomen/Pelvis CT 02/14/19 00:00 IMPRESSION: No acute finding in the abdomen or pelvis. Uncomplicated right inguinal hernia. Cervical Spine CT 02/14/19 00:00 IMPRESSION: No acute fracture or subluxation. Head CT 02/14/19 00:00 IMPRESSION: No acute intracranial findings. Renal Ultrasound 02/14/19 00:00 IMPRESSION: No hydronephrosis. Bladder drained by Lynn catheter Shoulder X-Ray 02/14/19 00:48 IMPRESSION: No acute finding. copyright 2011 [email or web address]- All Rights Reserved Carotid Doppler Study 02/15/19 00:00 IMPRESSION: NO HEMODYNAMICALLY SIGNIFICANT STENOSIS. Assessment and Plan - Diagnosis (1) SHAY (acute kidney injury) Is this a current diagnosis for this admission?: Yes Plan: 02/15: Resolved with IV fluids. Creatinine has trended down to 1.0 from 2.3. (2) Hypokalemia Is this a current diagnosis for this admission?: Yes Plan: 02/14: Repeat potassium only went up to 2.9 after getting 60 mics of IV potassium. Appears patient is on chronic potassium replacement and likely has chronic issues with low potassium. Note that BMP also shows significantly elevated HCO3. He may need further work-up for possible renal/endocrine disorders causing concomitant hypokalemia and alkalosis there is persistence of hypokalemia and alkalosis. Magnesium level is normal. Will also check an ABG to assess for acid-base balance rafted disorder. 02/15: Resolved. Repeat potassium at 3.6. Continue scheduled p.o. potassium (home regimen). (3) Syncope Qualifiers: Syncope type: unspecified Qualified Code(s): R55 - Syncope and collapse Is this a current diagnosis for this admission?: Yes Plan: Possibly from dehydration and hypokalemia as patient did say he was drinking less at home and was found to have acute renal failure and hypokalemia upon presentation. Orthostats have been negative so far. Carotid Dopplers normal. (4) Autoimmune disease Is this a current diagnosis for this admission?: Yes Plan: 02/14: We will obtain records from PCP including notes and work-up/labs already done before pursuing further autoimmune work-up. 02/15: Awaiting for records from PCP. 02/16: This can be further followed up outpatient with PCP. (5) UTI (urinary tract infection) Is this a current diagnosis for this admission?: Yes Plan: Continue Rocephin. Urine culture growing gram-negative rods. - Time Time Spent with patient: 15-24 minutes
[2019-02-16] MEDS: ACETAMINOPHEN 325 MG TABLET PO PRN (18:31)
[2019-02-16] MEDS: RIVAROXABAN 10 MG TABLET PO SCH (21:49)
[2019-02-17 04:58] LABS: ANION GAP 6 (5-19); BLOOD UREA NITROGEN 19 mg/dL (7-20); CALCIUM 8.8 mg/dL (8.4-10.2); CARBON DIOXIDE 32 mmol/L (22-30); CHLORIDE 101 mmol/L (98-107); GLUCOSE 104 mg/dL (75-110); POTASSIUM 4.2 mmol/L (3.6-5.0); SODIUM 138.7 mmol/L (137-145)
[2019-02-17] MEDS: CEFTRIAXONE SODIUM 1,000 MG in DEXTROSE 5%-WATER 50 ML IV SCH (05:50)
[2019-02-17] MEDS: POTASSIUM CHLORIDE 10 MEQ CAPSULE.ER PO SCH ×3 (05:51→22:14)
[2019-02-17] MEDS: PSYLLIUM SEED-SF 5.85 GM PACKET PO SCH (09:40)
[2019-02-17] MEDS: LOSARTAN POTASSIUM 25 MG TABLET PO SCH ×2 (09:40→22:15)
[2019-02-17] MEDS: GABAPENTIN 300 MG CAPSULE PO SCH ×2 (09:40→22:14)
[2019-02-17] MEDS: DOCUSATE SODIUM 100 MG CAPSULE PO SCH ×2 (09:41→17:16)
--- NOTE | 2019-02-17 15:43 | PDOC PROGRESS REPORT ---
Subjective Progress Note for:: 02/17/19 Subjective:: 02/14: This is a 68 yr old male with a PMH of possible autoimmune disorders including RA, systemic sclerosis, polymyositis, CHF, COPD and VIKKI who was admitted earlier this morning for syncope. Presentation, he was noted to be severely hypokalemic. He was also noted to be in acute renal failure and was found to have a UTI. Upon encounter, patient appears comfortable and appears to be more conversant. He relates that he has been having leg cramps in the past few days but is otherwise on his baseline until last night when he was walking up the stairs when he felt weak on both his legs. He says he sat on the stairs but felt dizzy and passed out for less than 10 seconds. He regained consciousness and did not have any urinary or bowel incontinence or confusion. He called EMS and he says that when they tried to sit him up again, he passed out again for a few seconds. When asked about his past medical history, he says that aside from his sleep apnea and fibromyalgia, he is not aware that he has been diagnosed with any autoimmune disorders. He does say that he has chronic generalized muscle pain and tenderness but thought this was from fibromyalgia. He does say he has difficulty ambulating at home and always uses a walker. He expressed that he and his daughters thinks he should go to a short-term rehab or long-term as he lives alone and has been having difficulty walking and doing things at home. He has an indwelling Lynn catheter and says that this was placed by Dr. Louis more than a week ago because he has been having urinary retention and urinary straining. 02/15: He appears comfortable. He says he feels better today. Orthostats have been negative so far. Potassium is improved. Carotid Dopplers pending. Awaiting for records from PCP. Will initiate process for SNF/rehab placement today. 02/16: He is at his baseline and denies any acute symptom or complaint. Awaiting placement for SNF/rehab. 02/17: No acute event overnight. He continues to do better. Denies acute complaints. Awaiting placement for SNF/rehab hopefully will be discharged tomorrow. Reason For Visit: UTI,ARF,PRESYNCOPE Physical Exam Vital Signs: Temp Pulse Resp BP Pulse Ox 98.0 F 86 20 132/69 H 98 02/17/19 11:15 02/17/19 11:15 02/17/19 11:15 02/17/19 11:15 02/17/19 11:15 Intake & Output 02/16/19 02/17/19 02/18/19 06:59 06:59 06:59 Intake Total 640 956 360 Output Total 1025 2375 625 Balance -385 -1419 -265 Weight 179 lb 10.828 oz 179 lb 10.828 oz General appearance: PRESENT: no acute distress, well-developed, well-nourished Head exam: PRESENT: atraumatic, normocephalic Eye exam: PRESENT: conjunctiva pink, EOMI, PERRLA. ABSENT: scleral icterus Ear exam: PRESENT: normal external ear exam Mouth exam: PRESENT: moist, tongue midline Neck exam: ABSENT: carotid bruit, JVD, lymphadenopathy, thyromegaly Respiratory exam: PRESENT: clear to auscultation alfredo. ABSENT: rales, rhonchi, wheezes Cardiovascular exam: PRESENT: RRR. ABSENT: diastolic murmur, rubs, systolic murmur Pulses: PRESENT: normal dorsalis pedis pul GI/Abdominal exam: PRESENT: normal bowel sounds, soft. ABSENT: distended, guarding, mass, organolmegaly, rebound, tenderness Rectal exam: PRESENT: deferred Extremities exam: PRESENT: full ROM, pedal edema. ABSENT: calf tenderness, clubbing Neurological exam: PRESENT: alert, awake, oriented to person, oriented to place, oriented to time, oriented to situation, CN II-XII grossly intact. ABSENT: motor sensory deficit Results Laboratory Results: 02/15/19 04:45 02/17/19 04:16 02/17/19 04:16 Sodium 138.7 Potassium 4.2 Chloride 101 Carbon Dioxide 32 H Anion Gap 6 BUN 19 Creatinine 0.89 Est GFR ( Amer) > 60 Est GFR (Non-Af Amer) > 60 Glucose 104 Calcium 8.8 02/14/19 02/14/19 00:35 00:35 Creatine Kinase 48 L CK-MB (CK-2) 0.64 Troponin I < 0.012 Impressions: Abdomen/Pelvis CT 02/14/19 00:00 IMPRESSION: No acute finding in the abdomen or pelvis. Uncomplicated right inguinal hernia. Cervical Spine CT 02/14/19 00:00 IMPRESSION: No acute fracture or subluxation. Head CT 02/14/19 00:00 IMPRESSION: No acute intracranial findings. Renal Ultrasound 02/14/19 00:00 IMPRESSION: No hydronephrosis. Bladder drained by Lynn catheter Shoulder X-Ray 02/14/19 00:48 IMPRESSION: No acute finding. copyright 2011 [email or web address]- All Rights Reserved Carotid Doppler Study 02/15/19 00:00 IMPRESSION: NO HEMODYNAMICALLY SIGNIFICANT STENOSIS. Assessment and Plan - Diagnosis (1) SHAY (acute kidney injury) Is this a current diagnosis for this admission?: Yes Plan: 02/15: Resolving with IV fluids. Creatinine has trended down to 1.0 from 2.3. 02/17: Resolved. Creatinine now at 0.8. (2) Hypokalemia Is this a current diagnosis for this admission?: Yes Plan: 02/14: Repeat potassium only went up to 2.9 after getting 60 mics of IV potassium. Appears patient is on chronic potassium replacement and likely has chronic issues with low potassium. Note that BMP also shows significantly elevated HCO3. He may need further work-up for possible renal/endocrine disorders causing concomitant hypokalemia and alkalosis there is persistence of hypokalemia and alkalosis. Magnesium level is normal. Will also check an ABG to assess for acid-base balance rafted disorder. 02/15: Resolved. Repeat potassium at 3.6. Continue scheduled p.o. potassium (home regimen). (3) Syncope Qualifiers: Syncope type: unspecified Qualified Code(s): R55 - Syncope and collapse Is this a current diagnosis for this admission?: Yes Plan: Possibly from dehydration and hypokalemia as patient did say he was drinking less at home and was found to have acute renal failure and hypokalemia upon presentation. Orthostats have been negative so far. Carotid Dopplers normal. (4) Autoimmune disease Is this a current diagnosis for this admission?: Yes Plan: 02/14: We will obtain records from PCP including notes and work-up/labs already done before pursuing further autoimmune work-up. 02/15: Awaiting for records from PCP. 02/16: This can be further followed up outpatient with PCP. (5) UTI (urinary tract infection) Is this a current diagnosis for this admission?: Yes Plan: Continue Rocephin. Urine culture growing Pseudomonas and another gram-negative rods. 02/17: Switch Rocephin to ciprofloxacin.
[2019-02-17] MEDS ORDERED: CIPROFLOXACIN HCL 500 MG TABLET ONE (21:54)
[2019-02-17] MEDS: RIVAROXABAN 10 MG TABLET PO SCH (22:14)
[2019-02-17] MEDS: CIPROFLOXACIN HCL 500 MG TABLET PO SCH (22:15)
[2019-02-18] MEDS: POTASSIUM CHLORIDE 10 MEQ CAPSULE.ER PO SCH ×3 (05:54→22:22)
[2019-02-18] MEDS: ACETAMINOPHEN 325 MG TABLET PO PRN (08:59)
[2019-02-18] MEDS: GABAPENTIN 300 MG CAPSULE PO SCH ×3 (10:39→17:41)
[2019-02-18] MEDS: PSYLLIUM SEED-SF 5.85 GM PACKET PO SCH (10:56)
[2019-02-18] MEDS: CIPROFLOXACIN HCL 500 MG TABLET PO SCH ×2 (10:56→22:20)
[2019-02-18] MEDS: DOCUSATE SODIUM 100 MG CAPSULE PO SCH ×2 (10:56→17:42)
[2019-02-18] MEDS: LOSARTAN POTASSIUM 25 MG TABLET PO SCH ×2 (12:50→22:20)
[2019-02-18] MEDS ORDERED: GABAPENTIN 300 MG CAPSULE PO SCH (14:00)
--- NOTE | 2019-02-18 16:42 | PDOC PROGRESS REPORT ---
Subjective Progress Note for:: 02/18/19 Subjective:: 02/14: This is a 68 yr old male with a PMH of possible autoimmune disorders including RA, systemic sclerosis, polymyositis, CHF, COPD and VIKKI who was admitted earlier this morning for syncope. Presentation, he was noted to be severely hypokalemic. He was also noted to be in acute renal failure and was found to have a UTI. Upon encounter, patient appears comfortable and appears to be more conversant. He relates that he has been having leg cramps in the past few days but is otherwise on his baseline until last night when he was walking up the stairs when he felt weak on both his legs. He says he sat on the stairs but felt dizzy and passed out for less than 10 seconds. He regained consciousness and did not have any urinary or bowel incontinence or confusion. He called EMS and he says that when they tried to sit him up again, he passed out again for a few seconds. When asked about his past medical history, he says that aside from his sleep apnea and fibromyalgia, he is not aware that he has been diagnosed with any autoimmune disorders. He does say that he has chronic generalized muscle pain and tenderness but thought this was from fibromyalgia. He does say he has difficulty ambulating at home and always uses a walker. He expressed that he and his daughters thinks he should go to a short-term rehab or assisted as he lives alone and has been having difficulty walking and doing things at home. He has an indwelling Lynn catheter and says that this was placed by Dr. Louis more than a week ago because he has been having urinary retention and urinary straining. 02/15: He appears comfortable. He says he feels better today. Orthostats have been negative so far. Potassium is improved. Carotid Dopplers pending. Awaiting for records from PCP. Will initiate process for SNF/rehab placement today. 02/16: He is at his baseline and denies any acute symptom or complaint. Awaiting placement for SNF/rehab. 02/17: He continues to do better. Denies acute complaints. Awaiting placement for SNF/rehab hopefully will be discharged tomorrow. 02/18: No acute event overnight. Patient got dizzy this morning when he tried to stand up. He was noted to be orthostatic with a significant drop in his blood pressure (lying of 132/62, sitting BP 100/49). He said he felt dizzy and was unable to stand up. Will start patient on IV fluids. Hold off on losartan. He is still awaiting SNF placement but will defer discharge today due to orthostatic hypotension. Reason For Visit: UTI,ARF,PRESYNCOPE Physical Exam Vital Signs: Temp Pulse Resp BP Pulse Ox 97.5 F 87 22 H 113/66 98 02/18/19 12:07 02/18/19 14:00 02/18/19 12:07 02/18/19 12:07 02/18/19 12:07 Intake & Output 02/17/19 02/18/19 02/19/19 06:59 06:59 06:59 Intake Total 956 1200 Output Total 2375 3100 Balance -1419 -1900 Weight 179 lb 10.828 oz 179 lb 10.828 oz General appearance: PRESENT: no acute distress, well-developed, well-nourished Head exam: PRESENT: atraumatic, normocephalic Eye exam: PRESENT: conjunctiva pink, EOMI, PERRLA. ABSENT: scleral icterus Ear exam: PRESENT: normal external ear exam Mouth exam: PRESENT: moist, tongue midline Neck exam: ABSENT: carotid bruit, JVD, lymphadenopathy, thyromegaly Respiratory exam: PRESENT: clear to auscultation alfredo. ABSENT: rales, rhonchi, wheezes Cardiovascular exam: PRESENT: RRR. ABSENT: diastolic murmur, rubs, systolic murmur Pulses: PRESENT: normal dorsalis pedis pul GI/Abdominal exam: PRESENT: normal bowel sounds, soft. ABSENT: distended, guarding, mass, organolmegaly, rebound, tenderness Rectal exam: PRESENT: deferred Extremities exam: PRESENT: full ROM. ABSENT: calf tenderness, clubbing, pedal edema Neurological exam: PRESENT: alert, awake, oriented to person, oriented to place, oriented to time, oriented to situation, CN II-XII grossly intact. ABSENT: motor sensory deficit Results Laboratory Results: 02/15/19 04:45 02/17/19 04:16 02/14/19 11:48 Lynn Catheter Urine Culture - Final Pseudomonas Aeruginosa Proteus Vulgaris 02/14/19 02/14/19 00:35 00:35 Creatine Kinase 48 L CK-MB (CK-2) 0.64 Troponin I < 0.012 Impressions: Abdomen/Pelvis CT 02/14/19 00:00 IMPRESSION: No acute finding in the abdomen or pelvis. Uncomplicated right inguinal hernia. Cervical Spine CT 02/14/19 00:00 IMPRESSION: No acute fracture or subluxation. Head CT 02/14/19 00:00 IMPRESSION: No acute intracranial findings. Renal Ultrasound 02/14/19 00:00 IMPRESSION: No hydronephrosis. Bladder drained by Lynn catheter Shoulder X-Ray 02/14/19 00:48 IMPRESSION: No acute finding. copyright 2011 [email or web address]- All Rights Reserved Carotid Doppler Study 02/15/19 00:00 IMPRESSION: NO HEMODYNAMICALLY SIGNIFICANT STENOSIS. Assessment and Plan - Diagnosis (1) SHAY (acute kidney injury) Is this a current diagnosis for this admission?: Yes Plan: 02/15: Resolving with IV fluids. Creatinine has trended down to 1.0 from 2.3. 02/17: Resolved. Creatinine now at 0.8. (2) Orthostatic hypotension Is this a current diagnosis for this admission?: Yes Plan: 02/18: He was noted to be orthostatic with a significant drop in his blood pressure (lying of 132/62, sitting BP 100/49). He said he felt dizzy and was unable to stand up. Will start patient on IV fluids. Hold off on losartan. (3) Hypokalemia Is this a current diagnosis for this admission?: Yes Plan: 02/14: Repeat potassium only went up to 2.9 after getting 60 mics of IV potassium. Appears patient is on chronic potassium replacement and likely has chronic issues with low potassium. Note that BMP also shows significantly elevated HCO3. He may need further work-up for possible renal/endocrine disorders causing concomitant hypokalemia and alkalosis there is persistence of hypokalemia and alkalosis. Magnesium level is normal. Will also check an ABG to assess for acid-base balance rafted disorder. 02/15: Resolved. Repeat potassium at 3.6. Continue scheduled p.o. potassium (home regimen). (4) Syncope Qualifiers: Syncope type: unspecified Qualified Code(s): R55 - Syncope and collapse Is this a current diagnosis for this admission?: Yes Plan: Possibly from dehydration and hypokalemia as patient did say he was drinking less at home and was found to have acute renal failure and hypokalemia upon presentation. Orthostats have been negative so far. Carotid Dopplers normal. 02/18: Patient became orthostatic this morning. Plan as mentioned above. (5) Autoimmune disease Is this a current diagnosis for this admission?: Yes Plan: 02/14: We will obtain records from PCP including notes and work-up/labs already done before pursuing further autoimmune work-up. 02/15: Awaiting for records from PCP. 02/16: This can be further followed up outpatient with PCP. (6) UTI (urinary tract infection) Is this a current diagnosis for this admission?: Yes Plan: Continue Rocephin. Urine culture growing Pseudomonas and another gram-negative rods. 02/17: Switch Rocephin to ciprofloxacin. - Time Time Spent with patient: 25-34 minutes
[2019-02-18] MEDS: RIVAROXABAN 10 MG TABLET PO SCH (22:20)
[2019-02-19] MEDS: GABAPENTIN 300 MG CAPSULE PO SCH ×3 (01:40→17:38)
[2019-02-19] MEDS: POTASSIUM CHLORIDE 10 MEQ CAPSULE.ER PO SCH ×3 (05:30→21:34)
[2019-02-19] MEDS: DOCUSATE SODIUM 100 MG CAPSULE PO SCH ×2 (10:05→17:38)
[2019-02-19] MEDS: CIPROFLOXACIN HCL 500 MG TABLET PO SCH ×2 (10:05→21:32)
[2019-02-19] MEDS: PSYLLIUM SEED-SF 5.85 GM PACKET PO SCH (10:06)
[2019-02-19] MEDS: LOSARTAN POTASSIUM 25 MG TABLET PO SCH ×2 (10:06→21:32)
--- NOTE | 2019-02-19 16:39 | PDOC PROGRESS REPORT ---
Subjective Progress Note for:: 02/19/19 Subjective:: This is 68 years old male patient with multiple comorbidities including rheumatoid arthritis, systemic sclerosis, polymyositis, hypercoagulable state on chronic anticoagulation with Xarelto, CHF, COPD, obstructive sleep apnea, obesity, presents after feeling dizzy prompting him to sit on a step only 200 awakened with EMS finding him passed out at the bottom of stairway. His initial work-up shows UTI, hypokalemia and acute kidney injury. At admission his potassium was 2.8 and after treatment normalized to 4.2 and his acute kidney injury evidenced by creatinine of 2.13 and after gentle hydration his creatinine normalized to 0.89. Since patient is deconditioned and has difficulty of walking he qualifies for short-term inpatient rehab less than 30 d ays. This morning I seen patient resting in bed comfortably. He does not have any new complaint. Reason For Visit: UTI,ARF,PRESYNCOPE Physical Exam Vital Signs: Temp Pulse Resp BP Pulse Ox 98.3 F 90 20 110/61 99 02/19/19 15:11 02/19/19 15:11 02/19/19 15:11 02/19/19 15:11 02/19/19 15:11 Intake & Output 02/18/19 02/19/19 02/20/19 06:59 06:59 06:59 Intake Total 1200 1256 480 Output Total [address] [facility] -1900 -2019 -295 Weight 81.5 kg 95.9 kg General appearance: PRESENT: no acute distress Eye exam: PRESENT: conjunctiva pink Mouth exam: PRESENT: moist Neck exam: ABSENT: carotid bruit, JVD, lymphadenopathy, thyromegaly Respiratory exam: PRESENT: clear to auscultation alfredo. ABSENT: rales, rhonchi, wheezes Cardiovascular exam: PRESENT: RRR. ABSENT: diastolic murmur, rubs, systolic murmur GI/Abdominal exam: PRESENT: normal bowel sounds, soft. ABSENT: distended, guarding, mass, organolmegaly, rebound, tenderness Neurological exam: PRESENT: alert, awake, oriented to person, oriented to place, oriented to time, oriented to situation Results Laboratory Results: 02/15/19 04:45 02/17/19 04:16 02/14/19 02/14/19 00:35 00:35 Creatine Kinase 48 L CK-MB (CK-2) 0.64 Troponin I < 0.012 Impressions: Abdomen/Pelvis CT 02/14/19 00:00 IMPRESSION: No acute finding in the abdomen or pelvis. Uncomplicated right inguinal hernia. Cervical Spine CT 02/14/19 00:00 IMPRESSION: No acute fracture or subluxation. Head CT 02/14/19 00:00 IMPRESSION: No acute intracranial findings. Renal Ultrasound 02/14/19 00:00 IMPRESSION: No hydronephrosis. Bladder drained by Lynn catheter Shoulder X-Ray 02/14/19 00:48 IMPRESSION: No acute finding. copyright 2010 [email or web address]- All Rights Reserved Carotid Doppler Study 02/15/19 00:00 IMPRESSION: NO HEMODYNAMICALLY SIGNIFICANT STENOSIS. Assessment and Plan - Diagnosis (1) Hypokalemia Is this a current diagnosis for this admission?: Yes Plan: Resolved (2) Acute kidney injury Is this a current diagnosis for this admission?: Yes Plan: Resolved (3) Syncope Qualifiers: Syncope type: unspecified Qualified Code(s): R55 - Syncope and collapse Is this a current diagnosis for this admission?: Yes Plan: Most probably vasovagal attack. His carotid Doppler reported as no hemodynamically significant stenosis. (4) Complicated UTI (urinary tract infection) Is this a current diagnosis for this admission?: Yes Plan: Treated (5) Hypercoagulable state Is this a current diagnosis for this admission?: Yes Plan: Continue Xarelto (6) COPD (chronic obstructive pulmonary disease) Qualifiers: Emphysema type: unspecified Is this a current diagnosis for this admission?: Yes Plan: Continue bronchodilators. (7) Obesity (BMI 30-39.9) Is this a current diagnosis for this admission?: Yes Plan: Lifestyle modification advised
[2019-02-19] MEDS: ACETAMINOPHEN 325 MG TABLET PO PRN (21:32)
[2019-02-19] MEDS: RIVAROXABAN 10 MG TABLET PO SCH (21:32)
[2019-02-20] MEDS: GABAPENTIN 300 MG CAPSULE PO SCH ×2 (01:58→09:38)
[2019-02-20] MEDS: POTASSIUM CHLORIDE 10 MEQ CAPSULE.ER PO SCH ×2 (05:46→14:19)
[2019-02-20] MEDS: CIPROFLOXACIN HCL 500 MG TABLET PO SCH (09:38)
[2019-02-20] MEDS: PSYLLIUM SEED-SF 5.85 GM PACKET PO SCH (09:38)
[2019-02-20] MEDS: DOCUSATE SODIUM 100 MG CAPSULE PO SCH (09:39)
[2019-02-20] MEDS: LOSARTAN POTASSIUM 25 MG TABLET PO SCH (09:43)
[2019-02-20 10:25] VITALS: BP 105/53
--- NOTE | 2019-02-20 11:07 | PDOC TRANSFER SUMMARY ---
General - Admit/Disc Date/PCP Admission Date/Primary Care Provider: 02/14/19 04:10 Discharge Date: 02/20/19 - Discharge Diagnosis (1) Hypokalemia Is this a current diagnosis for this admission?: Yes (2) Acute kidney injury Is this a current diagnosis for this admission?: Yes (3) Syncope Is this a current diagnosis for this admission?: Yes (4) Complicated UTI (urinary tract infection) Is this a current diagnosis for this admission?: Yes (5) Hypercoagulable state Is this a current diagnosis for this admission?: Yes (6) COPD (chronic obstructive pulmonary disease) Is this a current diagnosis for this admission?: Yes (7) Obesity (BMI 30-39.9) Is this a current diagnosis for this admission?: Yes - Additional Information Resuscitation Status: Full Code Home Medications: Fluticasone/Vilanterol [Breo 200-25 Mcg Ellipta 14 Dose/Dpi] 1 puff IH DAILY 02/14/19 Furosemide [Lasix 80 mg Tablet] 80 mg PO DAILY 02/14/19 Gabapentin [Neurontin] 800 mg PO Q8 02/14/19 Guar Gum [Benefiber] 1 packet PO DAILYP PRN 02/14/19 Meclizine HCl [Antivert 25 mg Tablet] 25 mg PO Q8 02/14/19 Pantoprazole Sodium [Protonix [address] Tablet] 40 mg PO BID 02/14/19 Potassium Chloride [Klor-Con 10 Meq Capsule ER] 10 meq PO Q8 02/14/19 Rivaroxaban [Xarelto] 20 mg PO DAILY 02/14/19 Tiotropium Waves [Spiriva Respimat] 2 puff IH DAILY 02/14/19 History of Present Illness Admission Date/PCP: 02/14/19 04:10 History of Present Illness: NIKHIL ESCOBAR is a 68 year old male with a complex past medical history suggestive of chronic autoimmune overlap with rheumatoid arthritis, systemic sclerosis, hypercoagulable state on Xarelto, polymyositis, congestive heart failure, COPD, obstructive sleep apnea etc. He presents after feeling dizzy prompting him to sit on a step only to awaken with EMS finding him passed out at the bottom of stairway. He is found to be altered and brought into the emergen cy room for evaluation where he is found to be profoundly weak with hypokalemia, acute renal failure and urinary tract infection. He started on empiric antibiotics, potassium replacement referred to the hospitalist for admission. Patient is chronically ill-appearing in a poor historian unable to recall medications but denies narcotic use. Hospital Course Hospital Course: This is 68 years old male patient with multiple comorbidities including rheumatoid arthritis, systemic sclerosis, polymyositis, hypercoagulable state on chronic anticoagulation with Xarelto, CHF, COPD, obstructive sleep apnea, obesity, presents after feeling dizzy prompting him to sit on a step only 200 awakened with EMS finding him passed out at the bottom of stairway. His initial work-up shows UTI, hypokalemia and acute kidney injury. At admission his potassium was 2.8 and after treatment normalized to 4.2 and his acute kidney injury evidenced by creatinine of 2.13 and after gentle hydration his creatinine normalized to 0.89. Since patient is deconditioned and has difficulty of walking he qualifies for short-term inpatient rehab less than 30 days. This morning I seen patient resting in bed comfortably. He does not have any new complaint. 02/20/2019: Patient seen and examined while he is sitting on recliner. He is awake alert oriented he is not in pain or distress and does not have any new complaints. His vital signs and blood works are unremarkable. Patient is stable enough to go to [place] [facility] for short-term acute rehab less than 30 days. I will continue all his home medications. Physical Exam Vital Signs: Temp Pulse Resp BP Pulse Ox 97.6 F 92 21 H 105/53 L 98 02/20/19 08:24 02/20/19 08:24 02/20/19 08:24 02/20/19 08:24 02/20/19 08:24 Intake & Output 02/19/19 02/20/19 02/21/19 06:59 06:59 06:59 Intake Total 1256 1330 Output Total 9965 1525 Balance Weight 95.9 kg 96 kg General appearance: PRESENT: no acute distress Head exam: PRESENT: atraumatic Eye exam: PRESENT: conjunctiva pink Neck exam: ABSENT: carotid bruit, JVD, lymphadenopathy, thyromegaly Respiratory exam: PRESENT: clear to auscultation alfredo. ABSENT: rales, rhonchi, wheezes GI/Abdominal exam: PRESENT: normal bowel sounds, soft. ABSENT: distended, guarding, mass, organolmegaly, rebound, tenderness Neurological exam: PRESENT: alert, awake, oriented to person, oriented to place, oriented to time, oriented to situation Results Laboratory Results: 02/15/19 04:45 02/17/19 04:16 02/15/19 04:45 Blood Blood Culture - Final NO GROWTH IN 5 DAYS 02/14/19 22:45 Blood Blood Culture - Final NO GROWTH IN 5 DAYS 02/14/19 02/14/19 00:35 00:35 Creatine Kinase 48 L CK-MB (CK-2) 0.64 Troponin I < 0.012 Impressions: Abdomen/Pelvis CT 02/14/19 00:00 IMPRESSION: No acute finding in the abdomen or pelvis. Uncomplicated right inguinal hernia. Cervical Spine CT 02/14/19 00:00 IMPRESSION: No acute fracture or subluxation. Head CT 02/14/19 00:00 IMPRESSION: No acute intracranial findings. Renal Ultrasound 02/14/19 00:00 IMPRESSION: No hydronephrosis. Bladder drained by Lynn catheter Shoulder X-Ray 02/14/19 00:48 IMPRESSION: No acute finding. copyright 2010 [employer]- All Rights Reserved Carotid Doppler Study 02/15/19 00:00 IMPRESSION: NO HEMODYNAMICALLY SIGNIFICANT STENOSIS. Qualifiers - * PATIENT BEING DISCHARGED WITH ANY OF THE FOLLOWING DIAGNOSIS: No Acute Heart Failure - Is this a Heart Failure Patient?: No LVEF < 40%?: No- if no continue to question #3 3. Anticoagulant therapy for permanect/persistent/paraoxysmal Afib or Aflutter: N/A
== END 2019-02-20 17:15 | DRG 641 ==
LOC: ER 23:52 → EH 02-14 04:10 → 4N 02-14 14:03
PROVIDERS: ADMIT Internal Medicine; ATTEND Internal Medicine
PROC: 5A09457 Assistance with Respiratory Ventilation, 24-96 Consecutive Hours, Continuous Positive Airway Pressure (ICD-10-PCS; principal; 2019-02-14)
DX: E87.6 Hypokalemia (principal); N39.0 Urinary tract infection, site not specified; N17.9 Acute kidney failure, unspecified; J44.9 Chronic obstructive pulmonary disease, unspecified; M06.9 Rheumatoid arthritis, unspecified; M34.9 Systemic sclerosis, unspecified; G47.33 Obstructive sleep apnea (adult) (pediatric); I50.9 Heart failure, unspecified; E78.5 Hyperlipidemia, unspecified; D64.9 Anemia, unspecified; Z60.2 Problems related to living alone; F10.21 Alcohol dependence, in remission; E66.01 Morbid (severe) obesity due to excess calories; M79.7 Fibromyalgia; E78.00 Pure hypercholesterolemia, unspecified; Z79.899 Other long term (current) drug therapy; Z79.01 Long term (current) use of anticoagulants; Z86.711 Personal history of pulmonary embolism
CPT/HCPCS: 36415; 36600; 70450; 72125; 74176; 76770; 80048; 80053; 80307; 81001; 82550; 82553; 82803; 83036; 83735; 84100; 84132; 84439; 84443; 84481; 84484; 85025; 85610; 85652; 85730; 87040; 87086; 87088; 87186; 93005; 93010; 93880; 94660; 96365; 96368; 99284; J0696; J1644; J3480; J3490; J7030; J7060

== ENCOUNTER → 2019-03-22 | Outpatient (CLI) | payer MEDICARE, OTHER ==
--- NOTE | 2019-03-22 16:32 | RADIOLOGY REPORT (SQ) ---
EXAM DESCRIPTION: CTA ABD AORTA AND EXTREMITY COMPLETED DATE/TIME: 03/22/2019 4:05 pm REASON FOR STUDY: M62.261 NONTRAUMATIC ISCHEMIC INFARCTION OF MUSCLE, RIGHT LOWER LEG M62.261 NONTR AUMATIC ISCHEMIC INFARCTION OF MUSCLE, RIGHT LO COMPARISON: 02/15/2019 TECHNIQUE: CT scan of the right lower extremity was performed with intravenous contrast using helica l scanning technique with dynamic intravenous contrast injection. Images reviewed with lung, soft tis leonel, and bone windows. Reconstructed coronal and sagittal MPR images reviewed. All images stored on [employer] Advanced 3D imaging as volume-rendering, MIPs, SSD performed? yes All CT scanners at this facility use dose modulation, iterative reconstruction, and/or weight based d osing when appropriate to reduce radiation dose to as low as reasonably achievable (ALARA). [facility]: Dose Right [facility]: CareDose [facility]: Dose Right [facility]: Teradose 4D [facility]: PlaySpan CONTRAST TYPE AND DOSE: contrast/concentration: Isovue 350.00 mg/ml; Total Contrast Delivered: 100.0 ml; Total Saline Delivered: 90.0 ml RENAL FUNCTION: Creatinine 1.10 LIMITATIONS: None. FINDINGS: VESSELS: Not imaged. Bilateral common, internal and external iliac arteries are widely pa tent without high-grade stenosis. Bilateral profunda are widely patent. Bilateral common femoral ar teries and superficial femoral artery is are widely patent without high-grade stenosis. The right po pliteal artery and tibioperoneal trunk are widely patent without high-grade stenosis. Proximal tibia l vessels are widely patent with three-vessel runoff visualized to the level of the mid thighs. Dist al tibials are non-opacified secondary to bolus timing but appear otherwise unremarkable. PELVIS: Decompressed urinary bladder with Lynn catheter. Few scattered colonic diverticula. APPENDIX: Normal. ABDOMINAL WALL: Right inguinal hernia. BONY STRUCTURES: No acute fracture dislocation. Right femoral neck and plate and screw hardware. 3-D IMAGING: Confirms the above findings. OTHER: No other significant finding. IMPRESSION: 1. Right lower extremity arteriogram demonstrates unremarkable visualize vessels withou t aneurysm or high-grade stenosis. Non opacification of the tibials secondary to bolus timing. 2. Right lower extremity subcutaneous edema. TECHNICAL DOCUMENTATION: JOB ID: [id number] Quality ID # [id number]: Final reports with documentation of one or more dose reduction techniques (e.g., Au tomated exposure control, adjustment of the mA and/or kV according to patient size, use of iterative reconstruction technique) 2010 [employer]- All Rights Reserved Reading location - IP/workstation name: [email or web address]
== END ==
LOC: RAD 14:20
PROVIDERS: ATTEND Family Medicine
DX: I73.89 Other specified peripheral vascular diseases (principal)
CPT/HCPCS: 75635; 82565

== ENCOUNTER 2020-04-13 02:02 | Inpatient (IN) | payer MEDICARE, OTHER, MEDICAID ==
[2020-04-13] MEDS ORDERED: PIPERACILLIN/TAZOBACTAM 4.5 GM VIAL IV ONE (02:25)
[2020-04-13 02:28] LABS: ABSOLUTE BASOPHILS # (AUTO) 0.1 10^3/uL (0.0-0.2); ABSOLUTE EOSINOPHILS # (AUTO) 0.1 10^3/uL (0.0-0.6); ABSOLUTE LYMPHOCYTES (AUTO) 2.4 10^3/uL (0.5-4.7); ABSOLUTE MONOCYTES (AUTO) 0.6 10^3/uL (0.1-1.4); ABSOLUTE NEUT (AUTO) 7.4 10^3/uL (1.7-8.2); BASOPHILS % (AUTO) 0.6 % (0-2); HEMATOCRIT 37.1 % (37.9-51.0); LYMPHOCYTES % (AUTO) 22.8 % (13-45); MEAN CORPUSCULAR HEMOGLOBIN 28.7 pg (27.0-33.4); MEAN CORPUSCULAR HGB CONC 32.4 g/dL (32.0-36.0); MEAN CORPUSCULAR VOLUME 89 fl (80-97); MONOCYTES % (AUTO) 5.4 % (3-13); PLATELET COUNT 415 10^3/uL (150-450); RED BLOOD COUNT 4.19 10^6/uL (4.35-5.55); RED CELL DISTRIBUTION WIDTH 14.8 % (11.5-14.0); SEGMENTED NEUTROPHILS % (AUTO) 70.2 % (42-78); TOTAL CELLS COUNTED % (AUTO) 100 %; WHITE BLOOD COUNT 10.5 10^3/uL (4.0-10.5)
[2020-04-13 02:34] LABS: ALBUMIN 3.5 g/dL (3.5-5.0); ALKALINE PHOSPHATASE 59 U/L (38-126); ANION GAP 8 (5-19); ASPARTATE AMINO TRANSFERASE 21 U/L (17-59); BILIRUBIN,DIRECT 0.3 mg/dL (0.0-0.4); BILIRUBIN,TOTAL 0.4 mg/dL (0.2-1.3); BLOOD UREA NITROGEN 12 mg/dL (7-20); CALCIUM 8.5 mg/dL (8.4-10.2); CARBON DIOXIDE 33 mmol/L (22-30); CHLORIDE 98 mmol/L (98-107); GLUCOSE 111 mg/dL (75-110); POTASSIUM 4.7 mmol/L (3.6-5.0); TOTAL PROTEIN 7.3 g/dL (6.3-8.2)
[2020-04-13 02:34] LABS: ARTERIAL BLOOD BASE EXCESS 4.2 mmol/L; ARTERIAL BLOOD HCO3 32.4 mmol/L (20-24); ARTERIAL BLOOD O2 SATURATION 97.5 % (94-98); ARTERIAL BLOOD PCO2 66.6 mmHg (35-45); ARTERIAL BLOOD PH 7.31 (7.35-7.45); ARTERIAL BLOOD PO2 111.3 mmHg (80-100); ARTERIAL BLOOD TOTAL CO2 34.4 mmol/L (23-27)
[2020-04-13 02:36] LABS: ARTERIAL BLOOD FIO2 100%
[2020-04-13 02:42] LABS: INTERNATIONAL RATION (INR) 2.72; PROTHROMBIN TIME 28.7 SEC (11.4-15.4)
[2020-04-13] MEDS ORDERED: NORMAL SALINE 1000 ML 1,000 ML IV ONE ×2 (02:58→03:07)
[2020-04-13 03:10] LABS: APPEARANCE,URINE CLOUDY; BILIRUBIN,URINE SMALL (NEGATIVE); COLOR,URINE YELLOW; GLUCOSE, URINE NEGATIVE (NEGATIVE); KETONES,URINE TRACE mg/dL (NEGATIVE); PROTEIN,URINE 100 mg/dL (NEGATIVE); URINE SPECIFIC GRAVITY 1.029; UROBILINOGEN,URINE NEGATIVE mg/dL (<2.0)
--- NOTE | 2020-04-13 03:10 | RADIOLOGY REPORT (SQ) ---
CLINICAL INDICATION: hypoxia. TECHNIQUE: A single portable AP view was obtained of the chest at 0249 hours. COMPARISON: January 30, 2019. FINDINGS: The cardiomediastinal silhouette is enlarged but stable. The lungs demonstrate progressive airspace disease and adjacent pleural reaction left lung base.. Right lung is grossly clear. No pneumothorax. Osteoarthritis. IMPRESSION: Progressive left basilar airspace and pleural disease. Pneumonia could have this appearance.
[2020-04-13] MEDS ORDERED: NORMAL SALINE 1000 ML 500 ML IV ONE (03:32)
[2020-04-13 03:39] LABS: TROPONIN I 0.089 ng/mL
--- NOTE | 2020-04-13 03:39 | ER Document Report ---
ED General - General Chief Complaint: Respiratory Distress Stated Complaint: RESPIRATORY DISTRESS Time Seen by Provider: 04/13/20 02:25 Primary Care Provider: ANG ALVAREZ MD [Primary Care Provider] - Follow up as needed Mode of Arrival: Medic Information source: Emergency Med Personnel Cannot obtain history due to: Altered mental status TRAVEL OUTSIDE OF THE [place] IN LAST 30 DAYS: No - HPI Notes: Patient arrives by ambulance. Ambulance crew states they were called to [facility] because patient had low oxygen saturations and was unresponsive. They state they found the patient with oxygen saturations in the 60s with minimal responsiveness. They loaded the patient in the ambulance and brought him to the emergency department. Patient is nonverbal not able to contribute to history. Patient is also apparently been febrile no known trauma no known falls. No known vomiting or diarrhea. - Related Data Allergies/Adverse Reactions: No Known Allergies Allergy (Verified 01/29/19 23:54) Past Medical History - General Information source: Outside Facility Records - Social History Smoking Status: Former Smoker Frequency of alcohol use: None Drug Abuse: None Family History: Reviewed & Not Pertinent Patient has homicidal ideation: - unk - Past Medical History Cardiac Medical History: Reports: Hx Congestive Heart Failure, Hx Hypercholesterolemia, Hx Pulmonary Embolism Pulmonary Medical History: Reports: Hx COPD, Hx Sleep Apnea Renal/ Medical History: Denies: Hx Peritoneal Dialysis GI Medical History: Reports: Hx Cirrhosis Past Surgical History: Reports: Hx Genitourinary Surgery - prostate surgery - Immunizations Hx Pneumococcal Vaccination: 11/12/18 Review of Systems - Review of Systems -: Yes ROS unobtainable due to patient's medical condition - Due to patient's altered mental status Physical Exam - Vital signs Vitals: Resp Pulse Ox 33 H 80 L 04/13/20 02:03 04/13/20 02:03 Interpretation: Tachycardic, Hypoxic, Tachypneic - General General appearance: Lethargic In distress: Severe - HEENT Head: Normocephalic, Atraumatic Eyes: Normal Mouth/Lips: Normal Mucous membranes: Moist - Respiratory Respiratory status: Respiratory distress - mod Breath sounds: Decreased air movement, Rhonchi Chest palpation: Normal - Cardiovascular Rhythm: Tachycardia Heart sounds: Normal auscultation Murmur: No - Abdominal Inspection: Normal Distension: No distension Bowel sounds: Normal Tenderness: Nontender Organomegaly: No organomegaly - Back Back: Normal, Nontender - Extremities General upper extremity: Normal inspection, Normal color, Normal temperature General lower extremity: Normal inspection, Normal color, Normal temperature. No: Mikala's sign - Neurological Cognition: Confused Orientation: Disoriented to person, Disoriented to place, Disoriented to time Jax Coma Scale Eye Opening: To Voice Jax Coma Scale Verbal: None [place] Coma Scale Motor: Localizes to Pain Jax Coma Scale Total: 9 Sensory: Normal - Psychological Associated symptoms: Confused, Psychomotor depression - Skin Skin Temperature: Cool Skin Moisture: Moist Skin Color: Pale Course - Re-evaluation Re-evalutation: 04/13/20 03:41 Patient is brought in by ambulance from sn[facility] with hypoxia and lethargy. Patient was immediately placed on a nonrebreather by paramedics this brought his sats up into the high 80s. I switch the patient to BiPAP and saturations slowly came up to 100% which they have remained at. This did significantly help patient has his respiratory rate went to normal with BiPAP his saturations are 100% and patient is no longer tachycardic. However it has decreased his blood p ressure some. His mean arterial pressure has been acceptable at approximately 65-68 but his systolic pressure has been low. I initially held fluids to make sure the patient was not in florid failure. X-ray shows pneumonia but no evidence of failure so IV fluids at this time have been started. Patient's responsiveness is approximately a GCS of 9. He does have a gag reflex and given his significant chronic medical problems and good response to BiPAP I thought it was prudent to not intubate the patient at this time. Sander Herring from ICU has been informed of pt and is currently working on orders and assessment. At 4am I have turned pt over to Dr. Evans who will follow up on bp response to fluids, need for pressors, monitor respiratory status and results of CT head. - Vital Signs Vital signs: Temp Pulse Resp BP Pulse Ox 99.9 F 23 H 83/60 L 100 04/13/20 02:05 04/13/20 02:50 04/13/20 02:50 04/13/20 02:50 - Laboratory Result Diagrams: 04/13/20 01:51 04/13/20 01:51 Laboratory results interpreted by me: 04/13/20 04/13/20 04/13/20 01:51 01:51 01:51 RBC 4.19 L Hgb 12.0 L Hct 37.1 L RDW 14.8 H PT 28.7 H Carbonic Acid ABG pH ABG pCO2 ABG pO2 ABG HCO3 ABG Total CO2 Carbon Dioxide 33 H Glucose 111 H Urine Protein Urine Ketones Urine Blood Urine Bilirubin Leukocyte Esterase Rfl 04/13/20 04/13/20 02:20 02:55 RBC Hgb Hct RDW PT Carbonic Acid 2.00 H ABG pH 7.31 L ABG pCO2 66.6 H ABG pO2 111.3 H ABG HCO3 32.4 H ABG Total CO2 34.4 H Carbon Dioxide Glucose Urine Protein 100 H Urine Ketones TRACE H Urine Blood SMALL H Urine Bilirubin SMALL H Leukocyte Esterase Rfl LARGE H - Diagnostic Test Radiology reviewed: Image reviewed, Reports reviewed - EKG Interpretation by Me EKG shows normal: Sinus rhythm Rate: Tachycardia - 107 Rhythm: NSR [place]/QRS: [facility] Critical Care Note - Critical Care Note Total time excluding time spent on procedures (mins): 60 Comments: Currently 60 minutes of critical care time were spent on this hypoxic tachycardic hypotensive septic patient with pneumonia. This time is spent doing multiple reassessments. It was spent talking with water resource consultant. It was spent reviewing imaging and laboratory values. It was spent reviewing old records. Discharge - Discharge Clinical Impression: Pneumonia Qualifiers: Pneumonia type: due to unspecified organism Laterality: left Lung location: lower lobe of lung Qualified Code(s): J18.9 - Pneumonia, unspecified organism Sepsis Qualifiers: Sepsis type: sepsis due to unspecified organism Sepsis acute organ dysfunction status: with acute organ dysfunction Severe sepsis acute organ dysfunction type: acute respiratory failure Acute respiratory failure type: with hypoxia Severe sepsis shock status: with septic shock Qualified Code(s): A41.9 - Sepsis, unspecified organism; R65.21 - Severe sepsis with septic shock; J96.01 - Acute respiratory failure with hypoxia Condition: Critical Disposition: ADMITTED INPATIENT Admitting Provider: Aliya ([employer]) - daller to do admission Unit Admitted: ICU Referrals: ANG ALVAREZ MD [Primary Care Provider] - Follow up as needed
--- NOTE | 2020-04-13 05:39 | RADIOLOGY REPORT (SQ) ---
CLINICAL HISTORY: ams COMPARISON: None. TECHNIQUE: CT HEAD WITHOUT IV CONTRAST on 04/13/2020 3:08 AM CDT This exam was performed according to our departmental dose-optimization program, which includes automated exposure control, adjustment of the mA and/or kV according to patient size and/or use of iterative reconstruction technique. FINDINGS: There is no acute hemorrhage, mass effect or midline shift. Fuchs-white differentiation is preserved. There is no hydrocephalus. There is no significant volume loss for age. The calvarium is intact. Orbits and globes are unremarkable. The paranasal sinuses are clear. Mastoid air cells are clear. IMPRESSION: No acute intracranial findings.
[2020-04-13] MEDS ORDERED: HEPARIN SOD (PORCINE) 5,000 UNIT/ML 1 ML VIAL SUBCUT SCH (06:00)
[2020-04-13] MEDS ORDERED: LINEZOLID 600 MG/300 ML RTUPB IV SCH (06:00)
--- NOTE | 2020-04-13 06:37 | CRITICAL CARE ADMISSION REPORT ---
HPI Date:: 04/13/20 Time:: 06:00 Reason for ICU Reason:: Acute Respiratory Failure Admission Date/Time & PCP: Admission Date/Time: 04/13/20 03:58 Primary Care Provider: ANG ALVAREZ MD HPI: Mr. Sha Gutierrez is a 69-year-old male with a past medical history of CHF, hyperlipidemia, pulmonary embolism, COPD, obstructive sleep apnea, cirrhosis, rheumatoid arthritis, polymyositis, and fibromyalgia. Currently resides at [facility]. During evening nursing rounds at intermediate he was found to be unresponsive with an O2 sat in the 60s EMS was called and patient was transported to the ER. In the ER he was febrile with a temp of 101.0 hypotensive with a blood pressure 79/61 he was given 3 L normal saline bolus. O2 saturations in the 70s on 100% nonrebreather. He was placed on BiPAP ABG was obtained, pH 7.31 PCO2 66.6 PO2 111.3 HCO3 32.4. He remained unresponsive to painful stimuli, he has no cough no gag reflexes. Pupils are sluggish he has no blink response. It is unknown how long he had been hypoxic for at the intermediate. CT of the head revealed no intracranial abnormalities. Chest x-ray shows progressive left basilar airspace disease possible pneumonia. He has no leukocytosis white count 10.5 BUN 12 creatinine 0.94 BN P 2300, lactic acid 0.7. COVID-19 test sent. He is admitted to the ICU for further management History obtained from:: Chart - Diagnosis/Plan (1) Pneumonia Qualifiers: Pneumonia type: due to unspecified organism Laterality: left Lung location: lower lobe of lung Qualified Code(s): J18.9 - Pneumonia, unspecified organism Is this a current diagnosis for this admission?: Yes Plan: He was given 1 dose of Zosyn in the ER Will start him on linezolid Daily chest x-ray (2) Acute respiratory failure Qualifiers: Respiratory failure complication: hypoxia Qualified Code(s): J96.01 - Acute respiratory failure with hypoxia Is this a current diagnosis for this admission?: Yes Plan: Most likely secondary to pneumonia COVID test pending maintain on BiPAP with low threshold to intubate treat pneumonia with linezolid Repeat ABG now (3) Unresponsive Is this a current diagnosis for this admission?: Yes Plan: CT head negative for any intracranial abnormalities We will get EEG today Past Medical History Cardiac Medical History: Reports: Congestive Heart Failure, Hyperlipidema, Pulmonary Embolism Pulmonary Medical History: Reports: Chronic Obstructive Pulmonary Disease (COPD), Sleep Apnea Neurological Medical History: Reports: Other GI Medical History: Reports: Cirrhosis Musculoskeltal Medical History: Reports: Fibromyalgia, Other - Polymyositis Hematology: Reports: Anemia Past Surgical History Past Surgical History: Reports: Other - TURP Social/Family History - Social History Lives with: Care Home Smoking Status: Former Smoker Frequency of Alcohol Use: None Hx Recreational Drug Use: No Drugs: None Hx Prescription Drug Abuse: No - Medication/Allergies Home Medications: Acetaminophen [Tylenol] 650 mg PO Q4H 04/13/20 Apremilast [Otezla] 30 mg PO BID 04/13/20 Carbidopa/Levodopa [Carbidopa-Levo 10-100 mg Odt] 1 each PO Q8H 04/13/20 Fexofenadine HCl [Kely Allergy] 180 mg PO DAILY 04/13/20 Fluticasone/Vilanterol [Breo 200-25 Mcg Ellipta 14 Dose/Dpi] 1 inh IH DAILY 04/13/20 Furosemide [Lasix 40 mg Tablet] 40 mg PO QAM 04/13/20 Gabapentin 1,200 mg PO Q8H 04/13/20 Guaifenesin [Mucus ER] 600 mg PO BID 04/13/20 Mag Hydrox/Aluminum Hyd/Simeth [Mylanta Maximum Strength Liq] 20 ml PO Q4HP PRN 04/13/20 Meclizine HCl 12.5 mg PO TIDP PRN 04/13/20 Ondansetron [Zofran Odt 4 mg Tablet] 4 mg PO Q6HP PRN 04/13/20 Pantoprazole Sodium [Protonix] 40 mg PO BID 04/13/20 Polyethylene Glycol 3350 [Miralax Powder 17 gm/Packet] 1 packet PO Q12HP PRN 04/13/20 Potassium Chloride 10 meq PO TID 04/13/20 Propylene Glycol [Systane Complete] 1 drop OP Q4HP PRN 04/13/20 Rivaroxaban [Xarelto] 20 mg PO QHS 04/13/20 Sertraline HCl [Zoloft 50 mg Tablet] 25 mg PO DAILY 04/13/20 Tramadol HCl [Ultram] 50 mg PO Q6HP PRN 04/13/20 Umeclidinium [place] [Incruse 62.5 Mcg Ellipta 7 Dose/Dpi] 1 inh IH DAILY 04/13/20 Allergies/Adverse Reactions: No Known Allergies Allergy (Verified 01/29/19 23:54) Review of Systems ROS unobtainable: Due to mental status Physical Exam Vital Signs: Temp Pulse Resp BP Pulse Ox 99.9 F 107 H 18 94/54 L 99 04/13/20 02:05 04/13/20 02:49 04/13/20 04:10 04/13/20 04:10 04/13/20 04:10 Intake & Output 04/11/20 04/12/20 04/13/20 06:59 06:59 06:59 Intake Total 2500 Balance 2500 Weight 87.906 kg Weight/Height Weight 87.906 kg General appearance: PRESENT: mild distress Head exam: PRESENT: atraumatic Eye exam: PRESENT: other - Pupils constricted and sluggish Mouth exam: PRESENT: moist, neck supple Respiratory exam: PRESENT: rales Cardiovascular exam: PRESENT: RRR, +S1, +S2 GI/Abdominal exam: PRESENT: distended, hypoactive bowel sounds Extremities exam: PRESENT: +2 edema Musculoskeletal exam: PRESENT: other - No motor movement Neurological exam: PRESENT: other - Unresponsive Skin exam: PRESENT: mottled, other - Stage III sacral decubitus Laboratory/Radiographs Laboratory Results: 04/13/20 01:51 04/13/20 01:51 04/13/20 04/13/20 04/13/20 01:51 01:51 01:51 WBC 10.5 RBC 4.19 L Hgb 12.0 L Hct 37.1 L MCV 89 MCH 28.7 MCHC 32.4 RDW 14.8 H Plt Count 415 Seg Neutrophils % 70.2 Carbonic Acid HCO3/H2CO3 Ratio ABG pH ABG pCO2 ABG pO2 ABG HCO3 ABG O2 Saturation ABG Base Excess FiO2 Sodium 138.5 Potassium 4.7 Chloride 98 Carbon Dioxide 33 H Anion Gap 8 BUN 12 Creatinine 0.94 Est GFR ( Amer) > 60 Glucose 111 H Lactic Acid 0.7 Calcium 8.5 Total Bilirubin 0.4 AST 21 Alkaline Phosphatase 59 Total Protein 7.3 Albumin 3.5 Urine Color Urine Appearance Urine pH Ur Specific Sod Urine Protein Urine Glucose (UA) Urine Ketones Urine Blood Urine RBC (Auto) 04/13/20 04/13/20 02:20 02:55 WBC RBC Hgb Hct MCV MCH MCHC RDW Plt Count Seg Neutrophils % Carbonic Acid 2.00 H HCO3/H2CO3 Ratio 16:1 ABG pH 7.31 L ABG pCO2 66.6 H ABG pO2 111.3 H ABG HCO3 32.4 H ABG O2 Saturation 97.5 ABG Base Excess 4.2 FiO2 100% Sodium Potassium Chloride Carbon Dioxide Anion Gap BUN Creatinine Est GFR ( Amer) Glucose Lactic Acid Calcium Total Bilirubin AST Alkaline Phosphatase Total Protein Albumin Urine Color YELLOW Urine Appearance CLOUDY Urine pH 5.0 Ur Specific Sod 1.029 Urine Protein 100 H Urine Glucose (UA) NEGATIVE Urine Ketones TRACE H Urine Blood SMALL H Urine RBC (Auto) 19 04/13/20 01:51 Troponin I 0.089 NT-Pro-B Natriuret Pep 2300 H Impressions: Chest X-Ray 04/13/20 02:26 IMPRESSION: Progressive left basilar airspace and pleural disease. Pneumonia could have this appearance. Head CT 04/13/20 03:08 IMPRESSION: No acute intracranial findings. All labs, radiographs, diagnostic studies and EKGs were personally reviewed: Yes In addition, reports of radiographic and diagnostic studies were read: Yes Critical Time Critical Time (minutes): 60 -: The care of a critically ill patient is dynamic. This note represents a static moment in the admission process. Orders and treatments may be given simultaneously and urgently, and time is not employer relations representative of the treatment process. This patient requires Critical Care secondary to life threatening organ or limb dysfunction. Without Critical Care services, the patient is at risk for increased mortality and morbidity.
[2020-04-13 07:02] LABS: ARTERIAL BLOOD BASE EXCESS -5.3 mmol/L; ARTERIAL BLOOD H2CO3 2.44 mmol/L (1.05-1.35); ARTERIAL BLOOD HCO3 25.7 mmol/L (20-24); ARTERIAL BLOOD O2 SATURATION 89.5 % (94-98); ARTERIAL BLOOD TOTAL CO2 28.1 mmol/L (23-27)
[2020-04-13 07:05] LABS: ARTERIAL BLOOD FIO2 100%; ARTERIAL BLOOD PCO2 81.1 mmHg (35-45); ARTERIAL BLOOD PH 7.12 (7.35-7.45)
--- NOTE | 2020-04-13 07:21 | EKG REPORT ---
SEVERITY:- ABNORMAL ECG - SINUS TACHYCARDIA LEFT ANTERIOR FASCICULAR BLOCK BORDERLINE R WAVE PROGRESSION, ANTERIOR LEADS BORDERLINE T ABNORMALITIES, ANT-LAT LEADS : Confirmed by: Lance Dobbins MD 13-Apr-2020 07:20:56
--- NOTE | 2020-04-13 08:27 | Progress Note ---
Provider Note Provider Note: Patient's ABG shows a lower pH at 7.12, pCo2 higher at 82. Abd more distended. Before an aspiration eventd, patient intubated with a glidescope, # 8 ETT with 10mg Etomidate.
[2020-04-13] MEDS ORDERED: PROPYLENE GLYCOL OP PRN (08:28)
[2020-04-13] MEDS ORDERED: POLYETHYLENE GLYCOL 3350 POWDER 17 GM/1 PACKET PO PRN (08:28)
[2020-04-13] MEDS ORDERED: LEVODOPA PO SCH (08:30)
[2020-04-13] MEDS: DEXMEDETOMIDINE IN 0.9 % NACL 400 MCG/100 ML RTUPB IV PRN ×2 (08:30→11:55)
[2020-04-13] MEDS ORDERED: CARBIDOPA PO SCH (08:30)
[2020-04-13] MEDS ORDERED: PHARMACY COMMUNICATION ORDER MC NR (08:30)
[2020-04-13] MEDS ORDERED: NORMAL SALINE 1000 ML 1,000 ML IV PRN ×2 (08:32→18:35)
--- NOTE | 2020-04-13 09:24 | RADIOLOGY REPORT (SQ) ---
EXAM DESCRIPTION: CHEST SINGLE VIEW IMAGES COMPLETED DATE/TIME: 04/13/2020 9:16 am REASON FOR STUDY: S/P intubation and OG tube COMPARISON: 04/13/2020 EXAM PARAMETERS: NUMBER OF VIEWS: One view. TECHNIQUE: Single frontal radiographic view of the chest acquired. RADIATION DOSE: NA LIMITATIONS: None. FINDINGS: LUNGS AND PLEURA: Persistent dense left lower lobe consolidation with associated air bron chograms obscuration of the left hemidiaphragm. Small left-sided pleural effusion. No pneumothorax. MEDIASTINUM AND HILAR STRUCTURES: No masses. Contour normal. HEART AND VASCULAR STRUCTURES: Normal heart size. Vascular calcifications. BONES: No acute findings. HARDWARE: Endotracheal tube tip overlies midthoracic trachea. Enteric tube tip below diaphragm but e xcluded by collimation. OTHER: No other significant finding. IMPRESSION: Endotracheal tube tip overlies midthoracic trachea. Persistent dense left lower lobe consolidation, likely pneumonia, with small associated pleural effus ion. TECHNICAL DOCUMENTATION: JOB ID: [id number] 2010 [employer]- All Rights Reserved Reading location - IP/workstation name: [email or web address]
--- NOTE | 2020-04-13 09:25 | RADIOLOGY REPORT (SQ) ---
EXAM DESCRIPTION: KUB/ABDOMEN (SINGLE VIEW) IMAGES COMPLETED DATE/TIME: 04/13/2020 9:16 am REASON FOR STUDY: OG tube placement COMPARISON: None. NUMBER OF VIEWS: One view. TECHNIQUE: Supine radiographic image of the abdomen acquired. LIMITATIONS: None. FINDINGS: Limited view the abdomen was submitted. No G tube is been placed. Tip overlies the mid a bdomen most likely within stomach. Visualize gas pattern is nonspecific. IMPRESSION: OG tube has been placed as described. TECHNICAL DOCUMENTATION: JOB ID: [id number] 2010 [employer]- All Rights Reserved Reading location - IP/workstation name: [email or web address]
[2020-04-13] MEDS ORDERED: PANTOPRAZOLE SODIUM 40 MG TABLET.DR PO SCH (10:00)
[2020-04-13] MEDS ORDERED: GUAIFENESIN 600 MG TABLET.SA PO SCH (10:00)
[2020-04-13] MEDS ORDERED: ETOMIDATE INJ/PF 20 MG/10 ML SDV IV ONE ×2 (10:00→10:16)
[2020-04-13] MEDS ORDERED: (PENDING PHARMACY ID) (Apremilast [Otezla] 30 MG) PO SCH (10:00)
[2020-04-13] MEDS ORDERED: SUCCINYLCHOLINE CHLORIDE INJ 200 MG/10 ML VIAL ONE (10:16)
[2020-04-13] MEDS: NORMAL SALINE 1000 ML 1,000 ML IV PRN ×2 (10:20→18:33)
[2020-04-13] MEDS: FLUTICASONE/VILANTEROL 200-25 MCG/DOSE IH SCH ×2 (10:24→11:34)
[2020-04-13] MEDS: UMECLIDINIUM BROMIDE 62.5 MCG/DOSE IH SCH ×2 (10:24→11:35)
[2020-04-13] MEDS: SERTRALINE HCL 50 MG TABLET NG SCH (10:24)
[2020-04-13] MEDS: PANTOPRAZOLE SODIUM 40 MG PACKET.DR NG SCH ×2 (10:24→17:13)
[2020-04-13] MEDS: LINEZOLID 600 MG/300 ML RTUPB IV SCH ×2 (10:24→21:12)
[2020-04-13] MEDS ORDERED: POLYETHYLENE GLYCOL 3350 POWDER 17 GM/1 PACKET NG PRN (11:00)
[2020-04-13 12:18] LABS: ARTERIAL BLOOD BASE EXCESS -0.6 mmol/L; ARTERIAL BLOOD HCO3 29.2 mmol/L (20-24); ARTERIAL BLOOD O2 SATURATION 87.7 % (94-98); ARTERIAL BLOOD PO2 66.3 mmHg (80-100); ARTERIAL BLOOD TOTAL CO2 31.5 mmol/L (23-27)
[2020-04-13 12:20] LABS: ARTERIAL BLOOD FIO2 80%
[2020-04-13 12:22] LABS: ARTERIAL BLOOD PCO2 76.4 mmHg (35-45)
[2020-04-13] MEDS ORDERED: POLYVINYL ALCOHOL 1.4% OPH SOLN 15 ML OU PRN (13:34)
[2020-04-13] MEDS: CARBIDOPA/LEVODOPA 10-100 MG TABLET NG SCH ×2 (14:58→21:12)
[2020-04-13] MEDS: GUAIFENESIN SYRP 200 MG/10 ML UDC NG SCH ×3 (14:58→21:11)
[2020-04-13] MEDS ORDERED: METHYLPREDNISOLONE INJ 125 MG/2 ML SDV IV SCH (18:45)
[2020-04-13] MEDS: METHYLPREDNISOLONE INJ 40 MG/1 ML SDV IV SCH (21:11)
[2020-04-13] MEDS: RIVAROXABAN 10 MG TABLET NG SCH (21:12)
[2020-04-14] MEDS: GUAIFENESIN SYRP 200 MG/10 ML UDC NG SCH ×6 (01:41→21:56)
[2020-04-14 04:16] LABS: HEMATOCRIT 36.2 % (37.9-51.0); HEMOGLOBIN 11.6 g/dL (13.5-17.0); MEAN CORPUSCULAR HEMOGLOBIN 28.3 pg (27.0-33.4); MEAN CORPUSCULAR VOLUME 89 fl (80-97); PLATELET COUNT 305 10^3/uL (150-450); RED BLOOD COUNT 4.08 10^6/uL (4.35-5.55); RED CELL DISTRIBUTION WIDTH 14.8 % (11.5-14.0); WHITE BLOOD COUNT 13.6 10^3/uL (4.0-10.5)
[2020-04-14 04:29] LABS: ANION GAP 8 (5-19); BLOOD UREA NITROGEN 8 mg/dL (7-20); CALCIUM 7.6 mg/dL (8.4-10.2); CARBON DIOXIDE 23 mmol/L (22-30); CHLORIDE 107 mmol/L (98-107); GLUCOSE 128 mg/dL (75-110); PHOSPHORUS 1.9 mg/dL (2.5-4.5)
[2020-04-14 04:32] LABS: ABSOLUTE LYMPHOCYTES# (MANUAL) 0.4 10^3/uL (0.5-4.7); BASOPHILS % (MANUAL) 0 % (0-2); EOSINOPHILS % (MANUAL) 0 % (0-6); LYMPHOCYTES % (MANUAL) 3 % (13-45); MONOCYTES % (MANUAL) 0 % (3-13); SEGMENTED NEUTROPHILS % (MAN) 97 % (42-78); TOTAL CELLS COUNTED 100
[2020-04-14 04:33] LABS: ANISOCYTOSIS SLIGHT; OVALOCYTES SLIGHT; PLATELET COMMENT ADEQUATE; POIKILOCYTOSIS SLIGHT; TOXIC GRANULATION 1+
[2020-04-14] MEDS: METHYLPREDNISOLONE INJ 40 MG/1 ML SDV IV SCH ×2 (05:08→18:29)
[2020-04-14] MEDS: CARBIDOPA/LEVODOPA 10-100 MG TABLET NG SCH ×3 (05:08→21:57)
--- NOTE | 2020-04-14 08:00 | PDOC CRITICAL CARE PROG REPORT ---
General Date:: 04/14/20 ICU Day:: 2 Ventilator Day:: 2 Hospital Day:: 2 Resuscitation Status: Full Code Events in the past 12 to 24 Hours:: Starting vent weaning process. Review of systems relevant to events:: Pulmonary. Reason for ICU Addmission:: Acute Respiratory Failure and intubated. Hypercarbia on bipap worsening. - Medications: Medications reviewed and adjusted accordingly: Yes Vasopressors:: None Sedation:: Precedex. Physical Exam Vital Signs: Temp Pulse Resp BP Pulse Ox 98.1 F 108 H 16 85/51 L 100 04/14/20 04:27 04/13/20 20:00 04/13/20 18:07 04/13/20 18:07 04/14/20 04:07 Intake & Output 04/13/20 04/14/20 04/15/20 06:59 06:59 06:59 Intake Total 2500 3400 Output Total 1345 Balance 2500 2055 Weight 41.368 kg 94.9 kg Weight/Height Weight 94.9 kg Height 5 ft 7 in General appearance: PRESENT: no acute distress Head exam: PRESENT: atraumatic, normocephalic Eye exam: PRESENT: conjunctiva pink, EOMI, PERRLA. ABSENT: scleral icterus Ear exam: PRESENT: normal external ear exam Mouth exam: PRESENT: moist, tongue midline Respiratory exam: PRESENT: decreased breath sounds Cardiovascular exam: PRESENT: RRR. ABSENT: diastolic murmur, rubs, systolic murmur GI/Abdominal exam: PRESENT: normal bowel sounds, soft. ABSENT: distended, g uarding, mass, organolmegaly, rebound, tenderness Rectal exam: PRESENT: deferred Gentrourinary exam: PRESENT: indwelling catheter Extremities exam: PRESENT: full ROM. ABSENT: calf tenderness, clubbing, pedal edema Musculoskeletal exam: PRESENT: normal inspection Neurological exam: PRESENT: altered, other - Sedated. Skin exam: PRESENT: dry, intact, warm. ABSENT: cyanosis, rash Tubes/Lines: PRESENT: Endotracheal Tube, Nasogastic Tube Laboratory/Radiographs Laboratory Results: 04/14/20 03:38 04/14/20 03:38 04/13/20 04/13/20 04/14/20 09:07 12:03 03:38 WBC 13.6 H RBC 4.08 L Hgb 11.6 L Hct 36.2 L MCV 89 MCH 28.3 MCHC 32.0 RDW 14.8 H Plt Count 305 Seg Neutrophils % Not Reportable Carbonic Acid 2.30 H HCO3/H2CO3 Ratio 12:1 ABG pH 7.20 L* ABG pCO2 76.4 H* ABG pO2 66.3 L ABG HCO3 29.2 H ABG O2 Saturation 87.7 L ABG Base Excess -0.6 FiO2 80% Sodium Potassium Chloride Carbon Dioxide Anion Gap BUN Creatinine Est GFR ( Amer) Glucose Lactic Acid 2.0 Calcium Phosphorus Magnesium 04/14/20 03:38 WBC RBC Hgb Hct MCV MCH MCHC RDW Plt Count Seg Neutrophils % Carbonic Acid HCO3/H2CO3 Ratio ABG pH ABG pCO2 ABG pO2 ABG HCO3 ABG O2 Saturation ABG Base Excess FiO2 Sodium 137.7 Potassium 4.0 Chloride 107 Carbon Dioxide 23 Anion Gap 8 BUN 8 Creatinine 0.48 L Est GFR ( Amer) > 60 Glucose 128 H Lactic Acid Calcium 7.6 L Phosphorus 1.9 L Magnesium 1.9 04/13/20 01:51 Troponin I 0.089 NT-Pro-B Natriuret Pep 2300 H Impressions: Head CT 04/13/20 03:08 IMPRESSION: No acute intracranial findings. KUB X-Ray 04/13/20 08:27 IMPRESSION: OG tube has been placed as described. All labs, radiographs, diagnostic studies and EKGs were personally reviewed: Yes In addition, reports of radiographic and diagnostic studies were read: Yes Assessment and Plan - Diagnosis (1) Acute respiratory failure Qualifiers: Respiratory failure complication: hypercapnia Qualified Code(s): J96.02 - Acute respiratory failure with hypercapnia Is this a current diagnosis for this admission?: Yes Plan: His pCO2 was in the 70s and pH 7.1 at the time of intubation. ABG pending. Will try to wean. (2) COPD (chronic obstructive pulmonary disease) Qualifiers: Emphysema type: unspecified Is this a current diagnosis for this admission?: Yes Plan: No wheezing but he is on steroids. (3) Obesity (BMI 30-39.9) Is this a current diagnosis for this admission?: Yes Plan: He barely makes the scale and likely this will not present to much of a problem with weaning. Plan Summary: Albuterol included, will try to wean. Critical Time Critical Time (minutes): 35 Level of Care: ICU Anticipated discharge: Home Anticipated DC Timeframe: Other -: 1. The care of a critical patient is a dynamic process. This note is a advertising account representative synopsis but static in nature. The timeframe for treatments given in order is not necessarily the actual time these treatments may have been done. 2. This patient requires critical care secondary to ongoing requirements for therapy not offered or safe outside the critical care environment. Transfer to a lower level of care will result in altered life or limb morbidity and mortality. 3. Multidisciplinary rounds completed. 4. ABCDE bundle addressed.
[2020-04-14] MEDS ORDERED: CALCIUM GLUCONATE 1000 MG/10 ML INJ IV ONE (08:04)
--- NOTE | 2020-04-14 08:24 | RADIOLOGY REPORT (SQ) ---
EXAM DESCRIPTION: CHEST SINGLE VIEW IMAGES COMPLETED DATE/TIME: 04/14/2020 6:24 am REASON FOR STUDY: Resp failure COMPARISON: 04/13/2020. EXAM PARAMETERS: NUMBER OF VIEWS: One view. TECHNIQUE: Single frontal radiographic view of the chest acquired. RADIATION DOSE: NA LIMITATIONS: None. FINDINGS: LUNGS AND PLEURA: Basilar densities and pleural effusions. Improved appearance of the lef t lung base. MEDIASTINUM AND HILAR STRUCTURES: No masses. Contour normal. HEART AND VASCULAR STRUCTURES: Cardiomegaly. BONES: No acute findings. HARDWARE: Stable endotracheal tube and nasogastric tube. OTHER: No other significant finding. IMPRESSION: BASILAR DENSITIES AND PLEURAL EFFUSIONS. IMPROVED AERATION IN THE LEFT LUNG BASE TECHNICAL DOCUMENTATION: JOB ID: [id number] 2010 [employer]- All Rights Reserved Reading location - IP/workstation name: [email or web address]
[2020-04-14] MEDS ORDERED: PHOSPHORUS #1 250 MG TABLET PO ONE (08:30)
[2020-04-14] MEDS: ALBUTEROL SULFATE 0.083% NEB 2.5 MG/3 ML AMPUL NEB SCH ×4 (08:51→20:38)
[2020-04-14 09:11] LABS: ARTERIAL BLOOD BASE EXCESS -0.4 mmol/L; ARTERIAL BLOOD FIO2 70%; ARTERIAL BLOOD H2CO3 1.09 mmol/L (1.05-1.35); ARTERIAL BLOOD HCO3 23.6 mmol/L (20-24); ARTERIAL BLOOD O2 SATURATION 97.4 % (94-98); ARTERIAL BLOOD PCO2 36.3 mmHg (35-45); ARTERIAL BLOOD PH 7.43 (7.35-7.45); ARTERIAL BLOOD PO2 93.2 mmHg (80-100); ARTERIAL BLOOD TOTAL CO2 24.7 mmol/L (23-27)
[2020-04-14] MEDS: DEXMEDETOMIDINE IN 0.9 % NACL 400 MCG/100 ML RTUPB IV PRN ×2 (09:23→19:02)
[2020-04-14] MEDS: CALCIUM GLUCONATE 1 GM/NS 50 ML RTU IV SCH ×2 (09:25→11:36)
[2020-04-14] MEDS: FAMOTIDINE 20 MG TABLET NG SCH ×2 (09:25→21:57)
[2020-04-14] MEDS: UMECLIDINIUM BROMIDE 62.5 MCG/DOSE IH SCH (09:26)
[2020-04-14] MEDS: SERTRALINE HCL 50 MG TABLET NG SCH (09:26)
[2020-04-14] MEDS: FLUTICASONE/VILANTEROL 200-25 MCG/DOSE IH SCH (09:26)
[2020-04-14] MEDS: LINEZOLID 600 MG/300 ML RTUPB IV SCH ×2 (09:27→21:56)
[2020-04-14] MEDS: NORMAL SALINE 1000 ML 1,000 ML IV PRN ×2 (11:35→21:37)
[2020-04-14] MEDS: RIVAROXABAN 10 MG TABLET NG SCH (21:57)
[2020-04-14] MEDS: Apremilast [Otezla] 30 MG PO SCH (21:59)
[2020-04-15] MEDS: ALBUTEROL SULFATE 0.083% NEB 2.5 MG/3 ML AMPUL NEB SCH ×6 (00:56→20:11)
[2020-04-15] MEDS: DEXMEDETOMIDINE IN 0.9 % NACL 400 MCG/100 ML RTUPB IV PRN ×2 (01:45→07:41)
[2020-04-15] MEDS: GUAIFENESIN SYRP 200 MG/10 ML UDC NG SCH ×6 (01:48→21:58)
[2020-04-15 04:05] LABS: HEMATOCRIT 33.5 % (37.9-51.0); HEMOGLOBIN 11.1 g/dL (13.5-17.0); MEAN CORPUSCULAR HEMOGLOBIN 28.6 pg (27.0-33.4); MEAN CORPUSCULAR VOLUME 87 fl (80-97); PLATELET COUNT 339 10^3/uL (150-450); RED BLOOD COUNT 3.86 10^6/uL (4.35-5.55); RED CELL DISTRIBUTION WIDTH 14.8 % (11.5-14.0); WHITE BLOOD COUNT 9.6 10^3/uL (4.0-10.5)
[2020-04-15 04:18] LABS: ANION GAP 9 (5-19); BLOOD UREA NITROGEN 7 mg/dL (7-20); CARBON DIOXIDE 20 mmol/L (22-30); CHLORIDE 107 mmol/L (98-107); GLUCOSE 239 mg/dL (75-110); PHOSPHORUS 1.8 mg/dL (2.5-4.5)
[2020-04-15 04:31] LABS: ABSOLUTE LYMPHOCYTES# (MANUAL) 0.4 10^3/uL (0.5-4.7); ABSOLUTE MONOCYTES # (MANUAL) 0.1 10^3/uL (0.1-1.4); BAND NEUTROPHILS % (MANUAL) 1 % (3-5); BASOPHILS % (MANUAL) 0 % (0-2); EOSINOPHILS % (MANUAL) 0 % (0-6); LYMPHOCYTES % (MANUAL) 4 % (13-45); MONOCYTES % (MANUAL) 1 % (3-13); SEGMENTED NEUTROPHILS % (MAN) 94 % (42-78); TOTAL CELLS COUNTED 100
[2020-04-15 04:32] LABS: ANISOCYTOSIS SLIGHT; OVALOCYTES SLIGHT; PLATELET COMMENT ADEQUATE; POIKILOCYTOSIS SLIGHT; POLYCHROMASIA SLIGHT; TOXIC GRANULATION SLIGHT
[2020-04-15] MEDS ORDERED: POTASSI CL 20 MEQ/50 ML RIDER 20 MEQ/50 ML RTUPB IV ONE (04:57)
[2020-04-15] MEDS: POTASSI CL 20 MEQ/50 ML RIDER 20 MEQ/50 ML RTUPB IV SCH ×2 (05:14→06:37)
[2020-04-15] MEDS: NORMAL SALINE 1000 ML 1,000 ML IV PRN ×3 (05:31→17:37)
[2020-04-15] MEDS: CARBIDOPA/LEVODOPA 10-100 MG TABLET NG SCH ×3 (06:22→21:59)
[2020-04-15] MEDS: METHYLPREDNISOLONE INJ 40 MG/1 ML SDV IV SCH ×2 (06:22→17:01)
--- NOTE | 2020-04-15 08:41 | RADIOLOGY REPORT (SQ) ---
EXAM DESCRIPTION: CHEST SINGLE VIEW IMAGES COMPLETED DATE/TIME: 04/15/2020 6:12 am REASON FOR STUDY: Resp failure COMPARISON: AP view of the chest from 04/14/2020. EXAM PARAMETERS: NUMBER OF VIEWS: One view. TECHNIQUE: An AP view of the chest was obtained. RADIATION DOSE: NA LIMITATIONS: None. FINDINGS: LUNGS AND PLEURA: Stable blunting of the costophrenic sulci and diffuse bilateral intersti tial opacities. There is no pneumothorax. MEDIASTINUM AND HILAR STRUCTURES: No mediastinal or hilar contour abnormality. HEART AND VASCULAR STRUCTURES: Stable enlarged cardiac silhouette. BONES: No acute findings. HARDWARE: The tip of the endotracheal tube projects 5.1 cm above the kayli. The tip of the enteric tube projects past the gastroesophageal junction and outside the field of view of the radiograph. OTHER: No other finding. IMPRESSION: Unchanged radiographic appearance of the chest. TECHNICAL DOCUMENTATION: JOB ID: [id number] 2010 [employer]- All Rights Reserved Reading location - IP/workstation name: [email or web address]
--- NOTE | 2020-04-15 08:51 | PDOC CRITICAL CARE PROG REPORT ---
General Date:: 04/15/20 ICU Day:: 2 Ventilator Day:: 2 Hospital Day:: 2 Resuscitation Status: Full Code Events in the past 12 to 24 Hours:: Weaned succesfully to CPAP at 35% but still with much secretions. Review of systems relevant to events:: Pulmonary, Neurological. Reason for ICU Addmission:: Weaned succesfully, needs secretions to lessen - Medications: Medications reviewed and adjusted accordingly: Yes Vasopressors:: None Sedation:: Precedex. Physical Exam Vital Signs: Temp Pulse Resp BP Pulse Ox 98.8 F 79 21 H 123/63 97 04/15/20 08:35 04/15/20 08:00 04/15/20 06:00 04/15/20 04:02 04/15/20 06:00 Intake & Output 04/14/20 04/15/20 04/16/20 06:59 06:59 06:59 Intake Total 4700 3211 100 Output Total 1345 2695 275 Balance 3355 516 -175 Weight 94.9 kg 94.9 kg Weight/Height Weight 94.9 kg Height 5 ft 7 in General appearance: PRESENT: no acute distress Head exam: PRESENT: atraumatic, normocephalic Eye exam: PRESENT: conjunctiva pink, EOMI, PERRLA. ABSENT: scleral icterus Ear exam: PRESENT: normal external ear exam Mouth exam: PRESENT: moist, tongue midline Respiratory exam: PRESENT: clear to auscultation alfredo. ABSENT: rales, rhonchi, wheezes Cardiovascular exam: PRESENT: RRR. ABSENT: diastolic murmur, rubs, systolic murmur GI/Abdominal exam: PRESENT: normal bowel sounds, soft. ABSENT: distended, guarding, mass, organolmegaly, rebound, tenderness Rectal exam: PRESENT: deferred Gentrourinary exam: PRESENT: indwelling catheter Extremities exam: PRESENT: full ROM. ABSENT: calf tenderness, clubbing, pedal edema Musculoskeletal exam: PRESENT: normal inspection Neurological exam: PRESENT: altered, awake Psychiatric exam: PRESENT: appropriate affect, normal mood. ABSENT: homicidal ideation, suicidal ideation Skin exam: PRESENT: dry, intact, warm. ABSENT: cyanosis, rash Tubes/Lines: PRESENT: Endotracheal Tube, Nasogastic Tube Laboratory/Radiographs Laboratory Results: 04/15/20 03:43 04/15/20 03:43 04/14/20 04/15/20 04/15/20 09:00 03:43 03:43 WBC 9.6 RBC 3.86 L Hgb 11.1 L Hct 33.5 L MCV 87 MCH 28.6 MCHC 33.0 RDW 14.8 H Plt Count 339 Seg Neutrophils % Not Reportable Carbonic Acid 1.09 HCO3/H2CO3 Ratio 21:1 ABG pH 7.43 ABG pCO2 36.3 ABG pO2 93.2 ABG HCO3 23.6 ABG O2 Saturation 97.4 ABG Base Excess -0.4 FiO2 70% Sodium 135.7 L Potassium 3.0 L* Chloride 107 Carbon Dioxide 20 L Anion Gap 9 BUN 7 Creatinine 0.46 L Est GFR ( Amer) > 60 Glucose 239 H Calcium 8.0 L Phosphorus 1.8 L Magnesium 2.0 04/13/20 02:55 Catheterized Urine Urine Culture - Final Pseudomonas Aeruginosa 04/13/20 02:27 Blood Blood Culture (PCR) - Final Staphylococcus Species 04/13/20 04/14/20 01:51 08:16 Creatine Kinase 78 Troponin I 0.089 NT-Pro-B Natriuret Pep 2300 H Impressions: Head CT 04/13/20 03:08 IMPRESSION: No acute intracranial findings. KUB X-Ray 04/13/20 08:27 IMPRESSION: OG tube has been placed as described. EKG: NSR All labs, radiographs, diagnostic studies and EKGs were personally reviewed: Yes In addition, reports of radiographic and diagnostic studies were read: Yes Assessment and Plan - Diagnosis (1) Acute respiratory failure Qualifiers: Respiratory failure complication: hypercapnia Qualified Code(s): J96.02 - Acute respiratory failure with hypercapnia Is this a current diagnosis for this admission?: Yes Plan: Hypercarbia resolved. ABG normalized. Tolerating CPAP and PSV 8. Secretions are the limiting factor. Sputum culture growing pseudomonas S to cefipime. Also staph in BC and urine. On cefipime and linezolid (2) COPD (chronic obstructive pulmonary disease) Qualifiers: Emphysema type: unspecified Is this a current diagnosis for this admission?: Yes Plan: He is not wheezing but will continue albuterol and solumedrol (3) Obesity (BMI 30-39.9) Is this a current diagnosis for this admission?: Yes Plan: Is likely not impacting his respiratory system much. (4) UTI (urinary tract infection) Qualifiers: Hematuria presence: without hematuria Is this a current diagnosis for this admission?: No Plan: He does not have symptoms and this may be a secondary effect from BC and sputum. Plan Summary: Extubate when he has a good cough and secretions are less. Critical Time Critical Time (minutes): 35 Level of Care: ICU Anticipated discharge: Home Anticipated DC Timeframe: Other -: 1. The care of a critical patient is a dynamic process. This note is a sales service representative synopsis but static in nature. The timeframe for treatments given in order is not necessarily the actual time these treatments may have been done. 2. This patient requires critical care secondary to ongoing requirements for therapy not offered or safe outside the critical care environment. Transfer to a lower level of care will result in altered life or limb morbidity and mortality. 3. Multidisciplinary rounds completed. 4. ABCDE bundle addressed.
[2020-04-15] MEDS: SERTRALINE HCL 50 MG TABLET NG SCH (09:00)
[2020-04-15] MEDS: LINEZOLID 600 MG/300 ML RTUPB IV SCH ×2 (09:00→22:01)
[2020-04-15] MEDS: FLUTICASONE/VILANTEROL 200-25 MCG/DOSE IH SCH (09:01)
[2020-04-15] MEDS: FAMOTIDINE 20 MG TABLET NG SCH ×2 (09:01→21:59)
[2020-04-15] MEDS: Apremilast [Otezla] 30 MG PO SCH (09:01)
[2020-04-15] MEDS: AMINO AC/PROTEIN HYDR/WHEY PRO 11 GM/45 ML PKT NG SCH ×4 (09:01→21:59)
[2020-04-15] MEDS: UMECLIDINIUM BROMIDE 62.5 MCG/DOSE IH SCH (09:02)
[2020-04-15] MEDS ORDERED: POTASSIUM CHLORIDE 10 MEQ TABLET.ER PO ONE (10:00)
[2020-04-15] MEDS ORDERED: CEFEPIME 1 GM/D5W RTU 1 GM/50 ML RTUPB IV SCH (10:00)
[2020-04-15] MEDS ORDERED: CEFEPIME 1 GM/D5W RTU 1 GM/50 ML RTUPB IV ONE (10:00)
[2020-04-15] MEDS ORDERED: POTASSIUM PHOS,M-BASIC-D-BASIC 60 MMOL in NORMAL SALINE 1000 ML 1,000 ML IV ONE (10:30)
[2020-04-15] MEDS: DEXMEDETOMIDINE IN NS 400 MCG/100 ML RTUPB IV PRN ×2 (14:33→20:17)
[2020-04-15] MEDS ORDERED: FUROSEMIDE INJ/PF 20 MG/2 ML SDV IV ONE (17:14)
[2020-04-15] MEDS: CEFEPIME HCL 2 GM in DEXTROSE 5%-WATER 50 ML IV SCH (17:36)
[2020-04-15] MEDS: RIVAROXABAN 10 MG TABLET NG SCH (21:59)
[2020-04-16] MEDS: ALBUTEROL SULFATE 0.083% NEB 2.5 MG/3 ML AMPUL NEB SCH ×6 (00:12→20:43)
[2020-04-16 01:21] LABS: ANION GAP 10 (5-19); BLOOD UREA NITROGEN 11 mg/dL (7-20); CALCIUM 7.6 mg/dL (8.4-10.2); CARBON DIOXIDE 26 mmol/L (22-30); CHLORIDE 104 mmol/L (98-107); GLUCOSE 177 mg/dL (75-110); POTASSIUM 3.5 mmol/L (3.6-5.0)
[2020-04-16] MEDS: CEFEPIME HCL 2 GM in DEXTROSE 5%-WATER 50 ML IV SCH ×3 (02:15→17:24)
[2020-04-16] MEDS: GUAIFENESIN SYRP 200 MG/10 ML UDC NG SCH ×6 (02:16→22:22)
[2020-04-16] MEDS: DEXMEDETOMIDINE IN NS 400 MCG/100 ML RTUPB IV PRN ×4 (02:16→19:59)
[2020-04-16] MEDS: NORMAL SALINE 1000 ML 1,000 ML IV PRN ×2 (02:53→20:13)
[2020-04-16 04:04] LABS: ABSOLUTE LYMPHOCYTES (AUTO) 0.7 10^3/uL (0.5-4.7); ABSOLUTE MONOCYTES (AUTO) 0.5 10^3/uL (0.1-1.4); ABSOLUTE NEUT (AUTO) 10.2 10^3/uL (1.7-8.2); BASOPHILS % (AUTO) 0.2 % (0-2); HEMATOCRIT 35.6 % (37.9-51.0); HEMOGLOBIN 11.6 g/dL (13.5-17.0); LYMPHOCYTES % (AUTO) 6.3 % (13-45); MEAN CORPUSCULAR HEMOGLOBIN 27.9 pg (27.0-33.4); MEAN CORPUSCULAR HGB CONC 32.7 g/dL (32.0-36.0); MEAN CORPUSCULAR VOLUME 85 fl (80-97); MONOCYTES % (AUTO) 4.8 % (3-13); PLATELET COUNT 358 10^3/uL (150-450); RED BLOOD COUNT 4.18 10^6/uL (4.35-5.55); RED CELL DISTRIBUTION WIDTH 14.8 % (11.5-14.0); SEGMENTED NEUTROPHILS % (AUTO) 88.7 % (42-78); TOTAL CELLS COUNTED % (AUTO) 100 %; WHITE BLOOD COUNT 11.5 10^3/uL (4.0-10.5)
[2020-04-16 04:15] LABS: ANION GAP 10 (5-19); BLOOD UREA NITROGEN 12 mg/dL (7-20); CALCIUM 7.9 mg/dL (8.4-10.2); CARBON DIOXIDE 26 mmol/L (22-30); CHLORIDE 105 mmol/L (98-107); GLUCOSE 156 mg/dL (75-110); PHOSPHORUS 2.9 mg/dL (2.5-4.5); POTASSIUM 3.5 mmol/L (3.6-5.0)
[2020-04-16] MEDS: METHYLPREDNISOLONE INJ 40 MG/1 ML SDV IV SCH ×2 (05:11→17:24)
[2020-04-16] MEDS: CARBIDOPA/LEVODOPA 10-100 MG TABLET NG SCH ×3 (05:11→22:22)
[2020-04-16] MEDS ORDERED: POTASSI CL 20 MEQ/50 ML RIDER 20 MEQ/50 ML RTUPB IV ONE (07:30)
[2020-04-16] MEDS: FAMOTIDINE 20 MG TABLET NG SCH ×2 (09:13→22:22)
[2020-04-16] MEDS: AMINO AC/PROTEIN HYDR/WHEY PRO 11 GM/45 ML PKT NG SCH ×4 (09:13→22:22)
[2020-04-16] MEDS: SERTRALINE HCL 50 MG TABLET NG SCH (09:14)
[2020-04-16] MEDS: FLUTICASONE/VILANTEROL 200-25 MCG/DOSE IH SCH (09:14)
[2020-04-16] MEDS: LINEZOLID 600 MG/300 ML RTUPB IV SCH ×2 (09:14→22:21)
[2020-04-16] MEDS: UMECLIDINIUM BROMIDE 62.5 MCG/DOSE IH SCH (09:14)
--- NOTE | 2020-04-16 09:26 | RADIOLOGY REPORT (SQ) ---
EXAM DESCRIPTION: CHEST SINGLE VIEW IMAGES COMPLETED DATE/TIME: 04/16/2020 5:57 am REASON FOR STUDY: Resp failure COMPARISON: Previous day. NUMBER OF VIEWS: One view. TECHNIQUE: Single frontal radiographic image of the chest acquired. LIMITATIONS: None. FINDINGS: LUNGS AND PLEURA: Small pleural effusions not significantly changed. MEDIASTINUM AND HEART: Stable heart size and mediastinal structures. SUPPORT DEVICES: Appropriate location without change. BONY STRUCTURES: No acute findings. HARDWARE: None. OTHER: No other significant finding. IMPRESSION: STABLE APPEARANCE OF THE CHEST. SUPPORT DEVICES UNCHANGED. Reading location - IP/workstation name: [email or web address]
--- NOTE | 2020-04-16 10:51 | PDOC CRITICAL CARE PROG REPORT ---
General Date:: 04/16/20 ICU Day:: 4 Ventilator Day:: 4 Hospital Day:: 4 Resuscitation Status: Full Code Events in the past 12 to 24 Hours:: Lungs a bit less secretions. Review of systems relevant to events:: Pulmonary, neurologic. Reason for ICU Addmission:: Weaned succesfully, needs secretions to lessen - Medications: Medications reviewed and adjusted accordingly: Yes Vasopressors:: None Sedation:: Precedex. Physical Exam Vital Signs: Temp Pulse Resp BP Pulse Ox 98.4 F 73 25 H 136/65 H 97 04/16/20 08:00 04/16/20 10:00 04/16/20 10:12 04/16/20 10:12 04/16/20 10:12 Intake & Output 04/15/20 04/16/20 04/17/20 06:59 06:59 06:59 Intake Total 3211 5345 89 Output Total 2695 5355 850 Balance 516 -10 -761 Weight 94.9 kg 95.7 kg Weight/Height Weight 95.7 kg Height 5 ft 7 in General appearance: PRESENT: no acute distress, obese Head exam: PRESENT: atraumatic, normocephalic Eye exam: PRESENT: conjunctiva pink, EOMI, PERRLA. ABSENT: scleral icterus Ear exam: PRESENT: normal external ear exam Mouth exam: PRESENT: moist, tongue midline Neck exam: ABSENT: carotid bruit, JVD, lymphadenopathy, thyromegaly Respiratory exam: PRESENT: decreased breath sounds, rhonchi, symmetrical, unlabored Cardiovascular exam: PRESENT: RRR. ABSENT: diastolic murmur, rubs, systolic murmur GI/Abdominal exam: PRESENT: normal bowel sounds, soft. ABSENT: distended, guarding, mass, organolmegaly, rebound, tenderness Rectal exam: PRESENT: deferred Gentrourinary exam: PRESENT: indwelling catheter Extremities exam: PRESENT: full ROM. ABSENT: calf tenderness, clubbing, pedal edema Musculoskeletal exam: PRESENT: normal inspection Neurological exam: PRESENT: altered, aphasic - Sedated. Skin exam: PRESENT: dry, intact, warm. ABSENT: cyanosis, rash Tubes/Lines: PRESENT: Endotracheal Tube, Nasogastic Tube Laboratory/Radiographs Laboratory Results: 04/16/20 03:45 04/16/20 03:45 04/16/20 04/16/20 04/16/20 00:53 03:45 03:45 WBC 11.5 H RBC 4.18 L Hgb 11.6 L Hct 35.6 L MCV 85 MCH 27.9 MCHC 32.7 RDW 14.8 H Plt Count 358 Seg Neutrophils % 88.7 H Sodium 139.6 140.5 Potassium 3.5 L 3.5 L Chloride 104 105 Carbon Dioxide 26 26 Anion Gap 10 10 BUN 11 12 Creatinine 0.43 L 0.42 L Est GFR ( Amer) > 60 > 60 Glucose 177 H 156 H Calcium 7.6 L 7.9 L Phosphorus 2.9 Magnesium 2.0 2.0 04/13/20 02:27 Blood Blood Culture (PCR) - Final Staphylococcus Species 04/13/20 02:27 Blood Blood Culture - Final Staphylococcus Epidermidis 04/13/20 02:55 Catheterized Urine Urine Culture - Final Pseudomonas Aeruginosa 04/13/20 04/14/20 01:51 08:16 Creatine Kinase 78 Troponin I 0.089 NT-Pro-B Natriuret Pep 2300 H Impressions: Head CT 04/13/20 03:08 IMPRESSION: No acute intracranial findings. KUB X-Ray 04/13/20 08:27 IMPRESSION: OG tube has been placed as described. Chest X-Ray 04/16/20 06:00 IMPRESSION: STABLE APPEARANCE OF THE CHEST. SUPPORT DEVICES UNCHANGED. All labs, radiographs, diagnostic studies and EKGs were personally reviewed: Yes In addition, reports of radiographic and diagnostic studies were read: Yes Assessment and Plan - Diagnosis (1) Acute respiratory failure Qualifiers: Respiratory failure complication: hypercapnia Qualified Code(s): J96.02 - Acute respiratory failure with hypercapnia Is this a current diagnosis for this admission?: Yes Plan: He is down to minimal settings and 30% FiO2. His limiting factor is secretions in his lungs. With pseudomanas and Staph this is not surprising. 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 RSBI 75 yesterday and NIF of -18 would also place him at risk of reintubation. (2) COPD (chronic obstructive pulmonary disease) Qualifiers: Emphysema type: unspecified Is this a current diagnosis for this admission?: Yes Plan: He is not wheezing and is on steroids. Not active. (3) Obesity (BMI 30-39.9) Is this a current diagnosis for this admission?: Yes Plan: Chronic (4) UTI (urinary tract infection) Qualifiers: Hematuria presence: without hematuria Is this a current diagnosis for this admission?: No Plan: Not a UTI. Plan Summary: Reassess for extubation later today as he seems to be getting less secretions with antibiotics. Critical Time Critical Time (minutes): 35 Level of Care: ICU Anticipated discharge: SNF Anticipated DC Timeframe: Other -: 1. The care of a critical patient is a dynamic process. This note is a automotive sales representative synopsis but static in nature. The timeframe for treatments given in order is not necessarily the actual time these treatments may have been done. 2. This patient requires critical care secondary to ongoing requirements for therapy not offered or safe outside the critical care environment. Transfer to a lower level of care will result in altered life or limb morbidity and mortality. 3. Multidisciplinary rounds completed. 4. ABCDE bundle addressed.
[2020-04-16] MEDS ORDERED: POTASSIUM CHLORIDE 10 MEQ TABLET.ER PO ONE (11:15)
--- NOTE | 2020-04-16 21:12 | CDI QUERY ---
CDI Query CDI Review: We are seeking further clarification of documentation to reflect the severity of illness of your patient. Noted in the H&P and Progress Notes: During evening nursing rounds at long term he was found to be unresponsive with an O2 sat in the 60s In the ER he was febrile with a temp of 101.0 hypotensive with a blood pressure 79/61 bolus. O2 saturations in the 70s on 100% nonrebreather. He was placed on BiPAP ABG was obtained, pH 7.31 PCO2 66.6 PO2 111.3 HCO3 32.4. He remained unresponsive to painful stimuli, he has no cough no gag reflexes. Pupils are sluggish he has no blink response. It is unknown how long he had been hypoxic for at the long term. CT of the head revealed no intracranial abnormalities. Chest x-ray shows progressive left basilar airspace disease possible pneumonia Based on your medical judgement, can you further clarify in the Progress Notes if the Altered Mental Status can be further specified: Metabolic Encephalopathy Toxic Encephalopathy Altered mental status without encephalopathy Other condition (please specify) Unable to determine Thank you for your consideration. COLLIN Tripp RN Clinical Sprinkler Worker Physician Advisor [email or web address]
--- NOTE | 2020-04-16 21:44 | CDI QUERY ---
CDI Query CDI Review: We are seeking further clarification of documentation to reflect the severity of illness of your patient. Per Critical Care Admission Notes: Acute respiratory failure Most likely secondary to pneumonia COVID test pending maintain on BiPAP with low threshold to intubate treat pneumonia with linezolid Per Critical Care Notes: He is down to minimal settings and 30% FiO2. His limiting factor is secretions in his lungs. With pseudomanas and Staph this is not surprising. 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 RSBI 75 yesterday and NIF of -18 would also place him at risk of reintubation. Based on your medical judgment, can you further clarify in the progress notes the most likely or suspected underlying cause of the pneumonia: Staph Pseudomonas Gram negative Pneumococcus Aspiration Other organism (please specify) Other cause (please specify) None of the above / Not applicable Thank you for your consideration. COLLIN Tripp RN Clinical Military Nurse Physician Advisor
[2020-04-16] MEDS: RIVAROXABAN 10 MG TABLET NG SCH (22:22)
[2020-04-17] MEDS: ALBUTEROL SULFATE 0.083% NEB 2.5 MG/3 ML AMPUL NEB SCH ×7 (00:35→23:54)
[2020-04-17] MEDS: CEFEPIME HCL 2 GM in DEXTROSE 5%-WATER 50 ML IV SCH ×3 (02:10→17:24)
[2020-04-17] MEDS: GUAIFENESIN SYRP 200 MG/10 ML UDC NG SCH ×3 (02:10→09:27)
[2020-04-17] MEDS: DEXMEDETOMIDINE IN 0.9 % NACL 400 MCG/100 ML RTUPB IV PRN (04:26)
[2020-04-17] MEDS: METHYLPREDNISOLONE INJ 40 MG/1 ML SDV IV SCH ×2 (06:20→17:25)
[2020-04-17] MEDS: CARBIDOPA/LEVODOPA 10-100 MG TABLET NG SCH (07:21)
--- NOTE | 2020-04-17 08:00 | PDOC CRITICAL CARE PROG REPORT ---
General Date:: 04/17/20 ICU Day:: 4 Hospital Day:: 4 Resuscitation Status: Full Code Events in the past 12 to 24 Hours:: Extubated Review of systems relevant to events:: Pulmonary, neurological. Reason for ICU Addmission:: Weaned succesfully, needs secretions to lessen - Medications: Medications reviewed and adjusted accordingly: Yes Vasopressors:: None Sedation:: None Physical Exam Vital Signs: Temp Pulse Resp BP Pulse Ox 99.0 F 87 32 H 127/73 H 97 04/17/20 06:00 04/17/20 05:20 04/17/20 05:42 04/17/20 05:42 04/17/20 05:42 Intake & Output 04/16/20 04/17/20 04/18/20 06:59 06:59 06:59 Intake Total 5345 2954 Output Total 5355 4525 Balance -10 -1571 Weight 95.7 kg 92.6 kg Weight/Height Weight 92.6 kg Height 5 ft 7 in General appearance: PRESENT: no acute distress, cooperative Head exam: PRESENT: atraumatic, normocephalic Eye exam: PRESENT: conjunctiva pink, EOMI, PERRLA. ABSENT: scleral icterus Ear exam: PRESENT: normal external ear exam Respiratory exam: PRESENT: clear to auscultation alfredo, rhonchi. ABSENT: rales, wheezes Cardiovascular exam: PRESENT: RRR. ABSENT: diastolic murmur, rubs, systolic murmur GI/Abdominal exam: PRESENT: normal bowel sounds, soft. ABSENT: distended, g uarding, mass, organolmegaly, rebound, tenderness Rectal exam: PRESENT: deferred Gentrourinary exam: PRESENT: indwelling catheter Extremities exam: PRESENT: full ROM, +1 edema, other - Both feet somewhat mottled, but warm.. ABSENT: calf tenderness, clubbing, pedal edema Neurological exam: PRESENT: alert, altered, awake, CN II-XII grossly intact, other - Answers simple wuestions, otherwise looks at examiner. Psychiatric exam: PRESENT: flat affect Skin exam: PRESENT: dry, intact, warm. ABSENT: cyanosis, rash Tubes/Lines: PRESENT: Nasogastic Tube Laboratory/Radiographs Laboratory Results: 04/16/20 03:45 04/16/20 03:45 04/13/20 08:30 Tracheal Aspirate Gram Stain - Final 04/13/20 08:30 Tracheal Aspirate Sputum Culture - Final Pseudomonas Aeruginosa Staphylococcus Aureus Normal Ivett Absent 04/13/20 04/14/20 01:51 08:16 Creatine Kinase 78 Troponin I 0.089 NT-Pro-B Natriuret Pep 2300 H Impressions: Head CT 04/13/20 03:08 IMPRESSION: No acute intracranial findings. KUB X-Ray 04/13/20 08:27 IMPRESSION: OG tube has been placed as described. Chest X-Ray 04/16/20 06:00 IMPRESSION: STABLE APPEARANCE OF THE CHEST. SUPPORT DEVICES UNCHANGED. All labs, radiographs, diagnostic studies and EKGs were personally reviewed: Yes In addition, reports of radiographic and diagnostic studies were read: Yes Assessment and Plan - Diagnosis (1) Acute respiratory failure Qualifiers: Respiratory failure complication: hypercapnia Qualified Code(s): J96.02 - Acute respiratory failure with hypercapnia Is this a current diagnosis for this admission?: Yes Plan: This is resolved with extubation. However patient still has much secretions, good cough, but will need encouragement to keep lungs clear. (2) COPD (chronic obstructive pulmonary disease) Qualifiers: Emphysema type: unspecified Is this a current diagnosis for this admission?: Yes Plan: Continue steroids for now, no wheezing. (3) Obesity (BMI 30-39.9) Is this a current diagnosis for this admission?: Yes Plan: Stable (4) Pneumonia Qualifiers: Pneumonia type: due to methicillin-sensitive Staphylococcus aureus (MSSA) Laterality: bilateral Lung location: lower lobe of lung Qualified Code(s): J15.211 - Pneumonia due to Methicillin susceptible Staphylococcus aureus Is this a current diagnosis for this admission?: Yes Plan: He is growing both MSSA and klebsiella from lungs, sensitive to antibiotics. Continue for at least 5 days. Plan Summary: Keep him in the ICU today to gain a better understanding of how much it will t marlyn to keep him breathing clearly Critical Time Critical Time (minutes): 35 Level of Care: ICU Anticipated discharge: SNF Anticipated DC Timeframe: Other -: 1. The care of a critical patient is a dynamic process. This note is a apparel trimmings sales representative synopsis but static in nature. The timeframe for treatments given in order is not necessarily the actual time these treatments may have been done. 2. This patient requires critical care secondary to ongoing requirements for therapy not offered or safe outside the critical care environment. Transfer to a lower level of care will result in altered life or limb morbidity and mortality. 3. Multidisciplinary rounds completed. 4. ABCDE bundle addressed.
[2020-04-17] MEDS ORDERED: POTASSIUM CHLORIDE 10 MEQ TABLET.ER PO ONE (08:01)
[2020-04-17] MEDS ORDERED: POTASSIUM CHLORIDE 20 MEQ PACKET NG ONE (09:00)
[2020-04-17] MEDS: SERTRALINE HCL 50 MG TABLET NG SCH (09:27)
[2020-04-17] MEDS: FAMOTIDINE 20 MG TABLET NG SCH (09:27)
[2020-04-17] MEDS: UMECLIDINIUM BROMIDE 62.5 MCG/DOSE IH SCH (09:28)
[2020-04-17] MEDS: FLUTICASONE/VILANTEROL 200-25 MCG/DOSE IH SCH (09:28)
[2020-04-17] MEDS: LINEZOLID 600 MG/300 ML RTUPB IV SCH (09:37)
[2020-04-17] MEDS ORDERED: POLYETHYLENE GLYCOL 3350 POWDER 17 GM/1 PACKET PO PRN (10:30)
[2020-04-17] MEDS: Apremilast [Otezla] 30 MG PO SCH ×2 (12:34→21:16)
[2020-04-17] MEDS: GUAIFENESIN SYRP 200 MG/10 ML UDC PO SCH ×3 (14:15→21:15)
[2020-04-17] MEDS: CARBIDOPA/LEVODOPA 10-100 MG TABLET PO SCH ×2 (14:15→21:15)
[2020-04-17 14:55] LABS: C DIFFICILE GDH NEGATIVE (NEGATIVE)
[2020-04-17] MEDS ORDERED: DIPHENOXYLATE HCL/ATROP SULF 2.5-0.025 MG TABLET PO PRN (15:00)
[2020-04-17] MEDS: NORMAL SALINE 1000 ML 1,000 ML IV PRN (17:32)
[2020-04-17] MEDS ORDERED: GABAPENTIN 300 MG CAPSULE PO SCH (19:45)
[2020-04-17] MEDS: RIVAROXABAN 10 MG TABLET PO SCH (21:15)
[2020-04-17] MEDS: FAMOTIDINE 20 MG TABLET PO SCH (21:15)
[2020-04-17] MEDS: LINEZOLID 600 MG TABLET PO SCH (21:16)
[2020-04-17] MEDS: GABAPENTIN 400 MG CAPSULE PO SCH (21:16)
[2020-04-17] MEDS ORDERED: ONDANSETRON HCL INJ/PF 4 MG/2 ML SDV ONE (21:47)
[2020-04-17] MEDS ORDERED: ONDANSETRON HCL INJ/PF 4 MG/2 ML SDV IV ONE ×2 (21:48→22:30)
[2020-04-18] MEDS: ALBUTEROL SULFATE 0.083% NEB 2.5 MG/3 ML AMPUL NEB SCH ×5 (04:06→20:19)
[2020-04-18 05:31] LABS: ANION GAP 9 (5-19); BLOOD UREA NITROGEN 16 mg/dL (7-20); CALCIUM 8.6 mg/dL (8.4-10.2); CARBON DIOXIDE 30 mmol/L (22-30); CHLORIDE 105 mmol/L (98-107); GLUCOSE 106 mg/dL (75-110); POTASSIUM 3.9 mmol/L (3.6-5.0)
[2020-04-18] MEDS: CEFEPIME HCL 2 GM in DEXTROSE 5%-WATER 50 ML IV SCH ×3 (07:12→17:23)
[2020-04-18] MEDS: GUAIFENESIN SYRP 200 MG/10 ML UDC PO SCH ×5 (07:12→22:20)
[2020-04-18] MEDS: CARBIDOPA/LEVODOPA 10-100 MG TABLET PO SCH ×3 (07:33→22:21)
[2020-04-18] MEDS: GABAPENTIN 400 MG CAPSULE PO SCH ×3 (07:33→22:19)
[2020-04-18] MEDS: METHYLPREDNISOLONE INJ 40 MG/1 ML SDV IV SCH ×2 (07:33→17:23)
[2020-04-18] MEDS: UMECLIDINIUM BROMIDE 62.5 MCG/DOSE IH SCH (09:34)
[2020-04-18] MEDS: FLUTICASONE/VILANTEROL 200-25 MCG/DOSE IH SCH (09:35)
[2020-04-18] MEDS: SERTRALINE HCL 50 MG TABLET PO SCH (09:36)
[2020-04-18] MEDS: LINEZOLID 600 MG TABLET PO SCH ×2 (09:36→22:22)
[2020-04-18] MEDS: FAMOTIDINE 20 MG TABLET PO SCH ×2 (09:37→22:20)
[2020-04-18] MEDS: Apremilast [Otezla] 30 MG PO SCH ×2 (09:37→22:20)
[2020-04-18] MEDS: NORMAL SALINE 1000 ML 1,000 ML IV PRN (13:17)
--- NOTE | 2020-04-18 14:51 | PDOC CRITICAL CARE PROG REPORT ---
General Date:: 04/18/20 Hospital Day:: 5 Resuscitation Status: Full Code Events in the past 12 to 24 Hours:: Extubated and doing well. Review of systems relevant to events:: Pulmonary, neurological. Reason for ICU Addmission:: Weaned succesfully, needs secretions to lessen - Medications: Medications reviewed and adjusted accordingly: Yes Vasopressors:: None Sedation:: None Physical Exam Vital Signs: Temp Pulse Resp BP Pulse Ox 98.6 F 89 28 H 111/62 95 04/18/20 12:00 04/18/20 12:00 04/18/20 14:00 04/18/20 13:43 04/18/20 14:00 Intake & Output 04/17/20 04/18/20 04/19/20 06:59 06:59 06:59 Intake Total 2954 1475 1100 Output Total 4525 2260 125 Balance -1571 -785 975 Weight 92.6 kg 92.6 kg Weight/Height Weight 92.6 kg Height 5 ft 7 in General appearance: PRESENT: no acute distress, obese Head exam: PRESENT: atraumatic, normocephalic Eye exam: PRESENT: conjunctiva pink, EOMI, PERRLA. ABSENT: scleral icterus Ear exam: PRESENT: normal external ear exam Mouth exam: PRESENT: moist, tongue midline Respiratory exam: PRESENT: clear to auscultation alfredo, rhonchi - Slight rhonchi, good cough. ABSENT: rales, wheezes Cardiovascular exam: PRESENT: RRR. ABSENT: diastolic murmur, rubs, systolic murmur GI/Abdominal exam: PRESENT: normal bowel sounds, soft. ABSENT: distended, guarding, mass, organolmegaly, rebound, tenderness Rectal exam: PRESENT: deferred Gentrourinary exam: PRESENT: indwelling catheter Extremities exam: PRESENT: full ROM. ABSENT: calf tenderness, clubbing, pedal edema Musculoskeletal exam: PRESENT: normal inspection Neurological exam: PRESENT: alert, awake, oriented to person, oriented to place, oriented to time, oriented to situation, CN II-XII grossly intact, other - Sleepy Skin exam: PRESENT: dry, intact, warm. ABSENT: cyanosis, rash Laboratory/Radiographs Laboratory Results: 04/16/20 03:45 04/18/20 05:10 04/18/20 04/18/20 05:10 05:10 Sodium 143.5 Potassium 3.9 Chloride 105 Carbon Dioxide 30 Anion Gap 9 BUN 16 Creatinine 0.55 Est GFR ( Amer) > 60 Glucose 106 Calcium 8.6 Ionized Calcium Ky 1.16 04/13/20 01:51 Blood Blood Culture - Final NO GROWTH IN 5 DAYS 04/13/20 04/14/20 01:51 08:16 Creatine Kinase 78 Troponin I 0.089 NT-Pro-B Natriuret Pep 2300 H Impressions: Head CT 04/13/20 03:08 IMPRESSION: No acute intracranial findings. KUB X-Ray 04/13/20 08:27 IMPRESSION: OG tube has been placed as described. Chest X-Ray 04/16/20 06:00 IMPRESSION: STABLE APPEARANCE OF THE CHEST. SUPPORT DEVICES UNCHANGED. All labs, radiographs, diagnostic studies and EKGs were personally reviewed: Yes In addition, reports of radiographic and diagnostic studies were read: Yes Assessment and Plan - Diagnosis (1) Acute respiratory failure Qualifiers: Respiratory failure complication: hypercapnia Qualified Code(s): J96.02 - Acute respiratory failure with hypercapnia Is this a current diagnosis for this admission?: Yes Plan: Resolved. He has done well extubated and has remained stable. (2) COPD (chronic obstructive pulmonary disease) Qualifiers: Emphysema type: unspecified Is this a current diagnosis for this admission?: Yes Plan: No wheezing, inactive. (3) Obesity (BMI 30-39.9) Is this a current diagnosis for this admission?: Yes Plan: Chronic (4) Pneumonia Qualifiers: Pneumonia type: due to methicillin-sensitive Staphylococcus aureus (MSSA) Laterality: bilateral Lung location: lower lobe of lung Qualified Code(s): J15.211 - Pneumonia due to Methicillin susceptible Staphylococcus aureus Is this a current diagnosis for this admission?: Yes Plan: Continue antibiotics. He has less secretions. Plan Summary: Able to downgrade to an [facility] level of care. Critical Time Critical Time (minutes): 25 Level of Care: IMCU Anticipated discharge: SNF Anticipated DC Timeframe: Other -: 1. The care of a critical patient is a dynamic process. This note is a group sales representative synopsis but static in nature. The timeframe for treatments given in order is not necessarily the actual time these treatments may have been done. 2. This patient requires critical care secondary to ongoing requirements for therapy not offered or safe outside the critical care environment. Transfer to a lower level of care will result in altered life or limb morbidity and mortality. 3. Multidisciplinary rounds completed. 4. ABCDE bundle addressed.
[2020-04-18] MEDS: RIVAROXABAN 10 MG TABLET PO SCH (22:21)
[2020-04-19] MEDS: ALBUTEROL SULFATE 0.083% NEB 2.5 MG/3 ML AMPUL NEB SCH ×6 (00:04→20:13)
[2020-04-19] MEDS: CEFEPIME HCL 2 GM in DEXTROSE 5%-WATER 50 ML IV SCH ×3 (01:01→17:46)
[2020-04-19] MEDS: NORMAL SALINE 1000 ML 1,000 ML IV PRN ×2 (01:02→22:47)
[2020-04-19] MEDS: GUAIFENESIN SYRP 200 MG/10 ML UDC PO SCH ×4 (01:50→17:46)
[2020-04-19] MEDS: GABAPENTIN 400 MG CAPSULE PO SCH ×3 (05:25→21:20)
[2020-04-19] MEDS: CARBIDOPA/LEVODOPA 10-100 MG TABLET PO SCH ×3 (05:25→21:20)
[2020-04-19] MEDS: SERTRALINE HCL 50 MG TABLET PO SCH (09:50)
[2020-04-19] MEDS: FAMOTIDINE 20 MG TABLET PO SCH ×2 (09:50→21:19)
[2020-04-19] MEDS: LINEZOLID 600 MG TABLET PO SCH ×2 (09:52→21:20)
[2020-04-19] MEDS ORDERED: METHYLPREDNISOLONE INJ 40 MG/1 ML SDV IV SCH (10:00)
[2020-04-19] MEDS: FLUTICASONE/VILANTEROL 200-25 MCG/DOSE IH SCH (10:18)
[2020-04-19] MEDS: UMECLIDINIUM BROMIDE 62.5 MCG/DOSE IH SCH (10:18)
[2020-04-19] MEDS: Apremilast [Otezla] 30 MG PO SCH ×2 (10:18→21:21)
--- NOTE | 2020-04-19 13:54 | PDOC PROGRESS REPORT ---
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 He was intubated on 04/13/20 and extubated on 04/16/20. Patient was seen on afternoon rounds; he is found resting in bed, comfortably, on supplemental oxygen at 2lpm. He is not home O2 dependent. A&Ox4. He reports a sore throat and lost voice (presumably r/t incubation), but does ask to advance his diet. He reports occasional nonproductive cough. Otherwise, states he feels well. He denies fever, chills, chest pain, palpitations, dyspnea, abd pain and nausea. Some loose stool today. He has no other questions or concerns. No concerns per nursing. Reason For Visit: PNEUMONIA Physical Exam Vital Signs: Temp Pulse Resp BP Pulse Ox 97.6 F 82 18 111/56 L 99 04/19/20 11:35 04/19/20 12:00 04/19/20 12:00 04/19/20 11:35 04/19/20 12:00 Intake & Output 04/18/20 04/19/20 04/20/20 06:59 06:59 06:59 Intake Total 1475 1838 890 Output Total 2260 895 975 Balance -785 943 -85 Weight 92.6 kg 93.5 kg General appearance: PRESENT: no acute distress, cooperative, well-developed, well-nourished Head exam: PRESENT: atraumatic, normocephalic Eye exam: PRESENT: conjunctiva pink, EOMI, PERRLA. ABSENT: scleral icterus Mouth exam: PRESENT: moist, tongue midline Respiratory exam: PRESENT: clear to auscultation alfredo, decreased breath sounds - throughout, symmetrical, unlabored, other - supplemental oxygen via NC. ABSENT: rales, rhonchi - clears after cough, wheezes Cardiovascular exam: PRESENT: RRR, +S1, +S2. ABSENT: diastolic murmur, rubs, systolic murmur Pulses: PRESENT: normal dorsalis pedis pul Vascular exam: PRESENT: normal capillary refill GI/Abdominal exam: PRESENT: normal bowel sounds, soft. ABSENT: distended, guarding, mass, organolmegaly, rebound, tenderness Rectal exam: PRESENT: deferred Gentrourinary exam: PRESENT: indwelling catheter Extremities exam: PRESENT: other - limited mobility; bedbound/total care at baseline. ABSENT: calf tenderness, clubbing, pedal edema Neurological exam: PRESENT: alert, awake, oriented to person, oriented to place, oriented to time, oriented to situation, CN II-XII grossly intact, other - forgetful. ABSENT: motor sensory deficit Psychiatric exam: PRESENT: appropriate affect, normal mood. ABSENT: homicidal ideation, suicidal ideation Skin exam: PRESENT: dry, intact, warm. ABSENT: cyanosis, rash Results Laboratory Results: 04/16/20 03:45 04/18/20 05:10 04/13/20 04/14/20 01:51 08:16 Creatine Kinase 78 Troponin I 0.089 NT-Pro-B Natriuret Pep 2300 H Impressions: Head CT 04/13/20 03:08 IMPRESSION: No acute intracranial findings. KUB X-Ray 04/13/20 08:27 IMPRESSION: OG tube has been placed as described. Chest X-Ray 04/16/20 06:00 IMPRESSION: STABLE APPEARANCE OF THE CHEST. SUPPORT DEVICES UNCHANGED. Assessment and Plan - Diagnosis (1) Pneumonia Qualifiers: Pneumonia type: due to unspecified organism Laterality: left Lung location: lower lobe of lung Qualified Code(s): J18.9 - Pneumonia, unspecified organism Is this a current diagnosis for this admission?: Yes Plan: Patient with left-sided pneumonia secondary to Pseudomonas aeruginosa and MSSA. Bloodcultures with no with growth at 5 days COVID (04/13/20) Negative Patient is provided supplemental oxygen as needed maintain saturations greater than 89%. Antibiotic day #6 He is currently treated with p.o. Zyvox 600 mg twice daily (treatment of MSSA) and IV cefepime. Scheduled and as needed nebulizer treatments. We will decrease frequency of scheduled nebs today. Continue Robitussin as needed. Pulmonary toilet is encouraged with incentive spirometer, flutter valve, early ambulation. (2) Acute respiratory failure Qualifiers: Respiratory failure complication: hypercapnia Qualified Code(s): J96.02 - Acute respiratory failure with hypercapnia Is this a current diagnosis for this admission?: Yes Plan: Improved. Secondary to left-sided pneumonia. Patient was intubated x4 days. He has done well extubated and has remained stable. Continues on supplemental oxygen at 2 L/min via nasal cannula. He is not home O2 dependent. Encourage pulmonary toilet and attempt to wean oxygen. (3) COPD (chronic obstructive pulmonary disease) Qualifiers: Emphysema type: unspecified Is this a current diagnosis for this admission?: Yes Plan: Stable and without exacerbation at this time. Continue supplemental oxygen as needed to maintain saturations greater than 89%. Continue home dose Incruse and Breo Patient was placed on IV Solu-Medrol while in the ICU; begin weaning. Encourage pulmonary toilet. (4) Obesity (BMI 30-39.9) Is this a current diagnosis for this admission?: Yes Plan: BMI 32.3 Status quo (5) UTI (urinary tract infection) Is this a current diagnosis for this admission?: Yes Plan: Ruled out. UA suggested UTI, however, cultures grew <100k colonies of pseudomonas; likely seeding from his pneumonia. Regardless, antibiotics for treatment of the patient's pneumonia are more than sufficient for treatment of possible developing UTI. (6) Acute metabolic encephalopathy Is this a current diagnosis for this admission?: Yes Plan: Resolved; today patient is A&Ox4 Multifactorial secondary to acute infectious process (PNA) and acute respiratory failure with hypoxia. - Time Time Spent with patient: 35 or more minutes Medications reviewed and adjusted accordingly: Yes Anticipated Discharge Disposition: Senior Living Facility - [facility] resident at [place] Anticipated Discharge Timeframe: within 72 hours
[2020-04-19] MEDS: RIVAROXABAN 10 MG TABLET PO SCH (21:20)
[2020-04-20] MEDS: GUAIFENESIN SYRP 200 MG/10 ML UDC PO SCH ×4 (00:55→18:11)
[2020-04-20] MEDS: CEFEPIME HCL 2 GM in DEXTROSE 5%-WATER 50 ML IV SCH ×2 (01:11→09:50)
[2020-04-20] MEDS: ALBUTEROL SULFATE 0.083% NEB 2.5 MG/3 ML AMPUL NEB SCH ×4 (02:32→20:02)
[2020-04-20] MEDS: GABAPENTIN 400 MG CAPSULE PO SCH ×3 (05:38→22:39)
[2020-04-20] MEDS: CARBIDOPA/LEVODOPA 10-100 MG TABLET PO SCH ×3 (05:38→22:40)
[2020-04-20 07:10] LABS: HEMATOCRIT 33.7 % (37.9-51.0); HEMOGLOBIN 11.2 g/dL (13.5-17.0); MEAN CORPUSCULAR HEMOGLOBIN 28.8 pg (27.0-33.4); MEAN CORPUSCULAR HGB CONC 33.2 g/dL (32.0-36.0); MEAN CORPUSCULAR VOLUME 87 fl (80-97); PLATELET COUNT 344 10^3/uL (150-450); RED BLOOD COUNT 3.88 10^6/uL (4.35-5.55); RED CELL DISTRIBUTION WIDTH 14.7 % (11.5-14.0); WHITE BLOOD COUNT 9.3 10^3/uL (4.0-10.5)
[2020-04-20 07:39] LABS: ANION GAP 6 (5-19); BLOOD UREA NITROGEN 19 mg/dL (7-20); CALCIUM 8.1 mg/dL (8.4-10.2); CARBON DIOXIDE 29 mmol/L (22-30); CHLORIDE 104 mmol/L (98-107); GLUCOSE 88 mg/dL (75-110); POTASSIUM 3.7 mmol/L (3.6-5.0)
[2020-04-20] MEDS: Apremilast [Otezla] 30 MG PO SCH ×2 (09:48→22:18)
[2020-04-20] MEDS: SERTRALINE HCL 50 MG TABLET PO SCH (09:50)
[2020-04-20] MEDS: UMECLIDINIUM BROMIDE 62.5 MCG/DOSE IH SCH (09:50)
[2020-04-20] MEDS: FLUTICASONE/VILANTEROL 200-25 MCG/DOSE IH SCH (09:50)
[2020-04-20] MEDS: FAMOTIDINE 20 MG TABLET PO SCH ×2 (09:50→22:40)
[2020-04-20] MEDS ORDERED: METHYLPREDNISOLONE INJ 40 MG/1 ML SDV IV SCH (10:00)
--- NOTE | 2020-04-20 14:03 | PDOC PROGRESS REPORT ---
Subjective Progress Note for:: 04/20/20 Subjective:: Patient evaluated this a.m. He offers no new complaints. He was initially admitted to the intensive care unit secondary to acute respiratory failure from pneumonia. He was intubated on April 13 and extubated on April 16 Reason For Visit: PNEUMONIA Physical Exam Vital Signs: Temp Pulse Resp BP Pulse Ox 98.0 F 83 18 131/62 H 98 04/20/20 11:29 04/20/20 11:29 04/20/20 11:29 04/20/20 11:29 04/20/20 11:29 Intake & Output 04/19/20 04/20/20 04/21/20 06:59 06:59 06:59 Intake Total 1838 3370 50 Output Total 895 3850 Balance 943 -480 50 Weight 93.5 kg 93.6 kg General appearance: PRESENT: no acute distress Head exam: PRESENT: atraumatic, normocephalic Eye exam: PRESENT: conjunctiva pink, EOMI, PERRLA. ABSENT: scleral icterus Ear exam: PRESENT: normal external ear exam Mouth exam: PRESENT: moist, tongue midline Neck exam: ABSENT: carotid bruit, JVD, lymphadenopathy, thyromegaly Respiratory exam: PRESENT: clear to auscultation alfredo. ABSENT: rales, rhonchi, wheezes Cardiovascular exam: PRESENT: RRR, +S1, +S2. ABSENT: diastolic murmur, rubs, systolic murmur Pulses: PRESENT: normal dorsalis pedis pul Vascular exam: PRESENT: normal capillary refill GI/Abdominal exam: PRESENT: normal bowel sounds, soft. ABSENT: distended, guarding, mass, organolmegaly, rebound, tenderness Rectal exam: PRESENT: deferred Extremities exam: PRESENT: full ROM. ABSENT: calf tenderness, clubbing, pedal edema Neurological exam: PRESENT: alert, awake, oriented to person, oriented to place, oriented to time, oriented to situation. ABSENT: motor sensory deficit Psychiatric exam: PRESENT: appropriate affect, normal mood. ABSENT: homicidal ideation, suicidal ideation Skin exam: PRESENT: dry, intact, warm. ABSENT: cyanosis, rash Results Laboratory Results: 04/20/20 06:50 04/20/20 06:50 04/20/20 04/20/20 06:50 06:50 WBC 9.3 RBC 3.88 L Hgb 11.2 L Hct 33.7 L MCV 87 MCH 28.8 MCHC 33.2 RDW 14.7 H Plt Count 344 Sodium 139.3 Potassium 3.7 Chloride 104 Carbon Dioxide 29 Anion Gap 6 BUN 19 Creatinine 0.48 L Est GFR ( Amer) > 60 Glucose 88 Calcium 8.1 L 04/13/20 04/14/20 01:51 08:16 Creatine Kinase 78 Troponin I 0.089 NT-Pro-B Natriuret Pep 2300 H Impressions: Head CT 04/13/20 03:08 IMPRESSION: No acute intracranial findings. KUB X-Ray 04/13/20 08:27 IMPRESSION: OG tube has been placed as described. Chest X-Ray 04/16/20 06:00 IMPRESSION: STABLE APPEARANCE OF THE CHEST. SUPPORT DEVICES UNCHANGED. Assessment and Plan - Diagnosis (1) Acute metabolic encephalopathy Is this a current diagnosis for this admission?: Yes Plan: Resolved; multifactorial secondary to acute infectious process (PNA) and acute respiratory failure with hypoxia. (2) Acute respiratory failure Qualifiers: Respiratory failure complication: hypercapnia Qualified Code(s): J96.02 - Acute respiratory failure with hypercapnia Is this a current diagnosis for this admission?: Yes Plan: Improved. Secondary to left-sided pneumonia. Will wean off oxygen as tolerated (3) Pneumonia Qualifiers: Pneumonia type: due to unspecified organism Laterality: left Lung location: lower lobe of lung Qualified Code(s): J18.9 - Pneumonia, unspecified organism Is this a current diagnosis for this admission?: Yes Plan: Patient with left-sided pneumonia secondary to Pseudomonas aeruginosa and MSSA. Bloodcultures with no with growth at 5 days COVID (04/13/20) Negative Antibiotic day #6 He is currently treated with p.o. Zyvox 600 mg twice daily (treatment of MSSA) and IV cefepime. I will reevaluate he is parenteral antibiotics and change him to p.o. as appropriate. Plan is to discharge him in a.m. if he remains stable Scheduled and as needed nebulizer treatments. Continue Robitussin as needed. Pulmonary toilet is encouraged with incentive spirometer, flutter valve, early ambulation. (4) COPD (chronic obstructive pulmonary disease) Qualifiers: Emphysema type: unspecified Is this a current diagnosis for this admission?: Yes Plan: Will change IV Solu-Medrol to p.o. today - Time Time Spent with patient: 15-24 minutes Medications reviewed and adjusted accordingly: Yes Anticipated Discharge Disposition: Long-Term Facility Anticipated Discharge Timeframe: within 24 hours - Inpatient Certification Based on my medical assessment, after consideration of the patient's comorbidities, presenting symptoms, or acuity I expect that the services needed warrant INPATIENT care.: Yes Medical Necessity: Need for Nebulizer Therapy and Monitoring of Response
[2020-04-20] MEDS: RIVAROXABAN 10 MG TABLET PO SCH (22:39)
[2020-04-20] MEDS: CIPROFLOXACIN HCL 500 MG TABLET PO SCH (22:40)
[2020-04-21] MEDS: GUAIFENESIN SYRP 200 MG/10 ML UDC PO SCH ×3 (00:19→13:54)
[2020-04-21] MEDS: ALBUTEROL SULFATE 0.083% NEB 2.5 MG/3 ML AMPUL NEB SCH ×3 (02:01→14:45)
[2020-04-21] MEDS: GABAPENTIN 400 MG CAPSULE PO SCH ×2 (06:08→13:53)
[2020-04-21] MEDS: CARBIDOPA/LEVODOPA 10-100 MG TABLET PO SCH ×2 (06:09→16:27)
[2020-04-21] MEDS: CIPROFLOXACIN HCL 500 MG TABLET PO SCH (09:14)
[2020-04-21] MEDS: FLUTICASONE/VILANTEROL 200-25 MCG/DOSE IH SCH (09:15)
[2020-04-21] MEDS: SERTRALINE HCL 50 MG TABLET PO SCH (09:15)
[2020-04-21] MEDS: FAMOTIDINE 20 MG TABLET PO SCH (09:15)
[2020-04-21] MEDS: UMECLIDINIUM BROMIDE 62.5 MCG/DOSE IH SCH (09:16)
[2020-04-21] MEDS: Apremilast [Otezla] 30 MG PO SCH (09:16)
--- NOTE | 2020-04-21 11:03 | PDOC TRANSFER SUMMARY ---
Impression - Admit/DC Date/PCP Admission Date/Primary Care Provider: 04/13/20 03:58 ANG ALVAREZ MD Discharge Date: 04/21/20 - Discharge Diagnosis (1) Acute metabolic encephalopathy Is this a current diagnosis for this admission?: Yes (2) Acute respiratory failure Is this a current diagnosis for this admission?: Yes (3) Pneumonia Is this a current diagnosis for this admission?: Yes (4) COPD (chronic obstructive pulmonary disease) Is this a current diagnosis for this admission?: Yes - Additional Information Resuscitation Status: Full Code Discharge Diet: Cardiac Discharge Activity: Activity As Tolerated Referrals: ANG ALVAREZ MD [Primary Care Provider] - 04/28/20 Prescriptions: Ciprofloxacin HCl [Cipro 500 mg Tablet] 500 mg PO Q12 #10 tablet Home Medications: Acetaminophen [Tylenol] 650 mg PO Q4HP PRN 04/13/20 Apremilast [Otezla] 30 mg PO BID 04/13/20 Carbidopa/Levodopa [Sinemet 10-100 mg Tablet] 1 each PO Q8 04/13/20 Fexofenadine HCl [Kely Allergy] 180 mg PO DAILY 04/13/20 Fluticasone/Vilanterol [Breo 200-25 Mcg Ellipta 14 Dose/Dpi] 1 inh IH DAILY 04/13/20 Furosemide [Lasix 40 mg Tablet] 40 mg PO QAM 04/13/20 Gabapentin 1,200 mg PO Q8 04/13/20 Guaifenesin [Mucus ER] 600 mg PO BID 04/13/20 Mag Hydrox/Aluminum Hyd/Simeth [Mylanta Maximum Strength Liq] 20 ml PO Q4HP PRN 04/13/20 Meclizine HCl 12.5 mg PO TIDP PRN 04/13/20 Ondansetron [Zofran Odt 4 mg Tablet] 4 mg PO Q6HP PRN 04/13/20 Pantoprazole Sodium [Protonix] 40 mg PO BID 04/13/20 Polyethylene Glycol 3350 [Miralax Powder 17 gm/Packet] 1 packet PO Q12HP PRN 04/13/20 Potassium Chloride 10 meq PO TID 04/13/20 Propylene Glycol [Systane Complete] 1 drop OP Q4HP PRN 04/13/20 Rivaroxaban [Xarelto] 20 mg PO QHS 04/13/20 Sertraline HCl [Zoloft 50 mg Tablet] 25 mg PO DAILY 04/13/20 Tramadol HCl [Ultram] 50 mg PO Q6HP PRN 04/13/20 Umeclidinium [place] [Incruse 62.5 Mcg Ellipta 7 Dose/Dpi] 1 inh IH DAILY 04/13/20 Ciprofloxacin HCl [Cipro 500 mg Tablet] 500 mg PO Q12 #10 tablet 04/21/20 History of Present Illiness History of Present Illness: NIKHIL ESCOBAR is a 69 year old male Patient was admitted to intensive care unit after being found unresponsive at [facility]. He was found to be hypoxemic. Hospital Course Hospital Course: Patient was admitted to intensive care unit after being found unresponsive at [facility]. He was found to be hypoxemic. He was ultimately diagnosed with pneumonia, and treated for Pseudomonas and MSSA pneumonia. Patient also has underlying polymyositis which may have contributed to his respiratory failure. Chest x-ray revealed left basilar he airspace disease. He was initially placed on BiPAP and then subsequently intubated due to persistent acidosis and respiratory failure. He was treated with IV steroids which has since been discontinued. Patient also received parenteral antibiotics and this is subsequently been changed to oral Cipro to complete his course for complicated pneumonia. He also received Zyvox. Patient was subsequently extubated on April 17. He was moved out to the medical floor. He has remained stable. He is encouraged to use incentive spirometer to help with his secretions and encourage a coughing so as to keep his lungs clear. Physical Exam Vital Signs: Temp Pulse Resp BP Pulse Ox 98.3 F 91 16 134/66 H 93 04/21/20 08:30 04/21/20 09:36 04/21/20 09:36 04/21/20 04:07 04/21/20 09:36 Intake & Output 04/20/20 04/21/20 04/22/20 06:59 06:59 06:59 Intake Total 2700 6709 Output Total 2321 0680 Balance -480 -1229 Weight 93.6 kg 91.1 kg General appearance: PRESENT: no acute distress, well-developed Head exam: PRESENT: atraumatic, normocephalic Eye exam: PRESENT: conjunctiva pink, EOMI, PERRLA. ABSENT: scleral icterus Mouth exam: PRESENT: tongue midline Neck exam: ABSENT: carotid bruit, JVD, lymphadenopathy, thyromegaly Respiratory exam: PRESENT: decreased breath sounds, rhonchi, unlabored. ABSENT: accessory muscle use, chest wall tenderness, rales, wheezes Cardiovascular exam: PRESENT: RRR, +S1, +S2. ABSENT: diastolic murmur, rubs, systolic murmur Pulses: PRESENT: normal dorsalis pedis pul Vascular exam: PRESENT: normal capillary refill GI/Abdominal exam: PRESENT: normal bowel sounds, soft. ABSENT: distended, guarding, mass, organolmegaly, rebound, tenderness Rectal exam: PRESENT: deferred Extremities exam: PRESENT: full ROM. ABSENT: calf tenderness, clubbing, pedal edema Neurological exam: PRESENT: alert, awake, oriented to person, oriented to place, oriented to time, oriented to situation, motor sensory deficit - weakness, other - mild dysarthria. ABSENT: normal gait Psychiatric exam: PRESENT: appropriate affect, flat affect, normal mood. ABSENT: homicidal ideation, suicidal ideation Skin exam: PRESENT: rash, warm, other - lower extreemities abrasions, contusions. ABSENT: cyanosis Results Laboratory Results: WBC 9.3 10^3/uL (4.0-10.5) 04/20/20 06:50 RBC 3.88 10^6/uL (4.35-5.55) L 04/20/20 06:50 Hgb 11.2 g/dL (13.5-17.0) L 04/20/20 06:50 Hct 33.7 % (37.9-51.0) L 04/20/20 06:50 MCV 87 fl (80-97) 04/20/20 06:50 MCH 28.8 pg (27.0-33.4) 04/20/20 06:50 MCHC 33.2 g/dL (32.0-36.0) 04/20/20 06:50 RDW 14.7 % (11.5-14.0) H 04/20/20 06:50 Plt Count 344 10^3/uL (150-450) 04/20/20 06:50 Lymph % (Auto) 6.3 % (13-45) L 04/16/20 03:45 [place] % (Auto) 4.8 % (3-13) 04/16/20 03:45 Eos % (Auto) 0.0 % (0-6) 04/16/20 03:45 Baso % (Auto) 0.2 % (0-2) 04/16/20 03:45 Absolute Neuts (auto) 10.2 10^3/uL (1.7-8.2) H 04/16/20 03:45 Absolute Lymphs (auto) 0.7 10^3/uL (0.5-4.7) 04/16/20 03:45 Absolute Monos (auto) 0.5 10^3/uL (0.1-1.4) 04/16/20 03:45 Absolute Eos (auto) 0.0 10^3/uL (0.0-0.6) 04/16/20 03:45 Absolute Basos (auto) 0.0 10^3/uL (0.0-0.2) 04/16/20 03:45 Total Counted 100 04/15/20 03:43 Seg Neutrophils % 88.7 % (42-78) H 04/16/20 03:45 Seg Neuts % (Manual) 94 % (42-78) H 04/15/20 03:43 Band Neutrophils % 1 % (3-5) L 04/15/20 03:43 Lymphocytes % (Manual) 4 % (13-45) L 04/15/20 03:43 Monocytes % (Manual) 1 % (3-13) L 04/15/20 03:43 Eosinophils % (Manual) 0 % (0-6) 04/15/20 03:43 Basophils % (Manual) 0 % (0-2) 04/15/20 03:43 Abs Neuts (Manual) 9.1 10^3/uL (1.7-8.2) H 04/15/20 03:43 Abs Lymphs (Manual) 0.4 10^3/uL (0.5-4.7) L 04/15/20 03:43 Abs Monocytes (Manual) 0.1 10^3/uL (0.1-1.4) 04/15/20 03:43 Absolute Eos (Manual) 0.0 10^3/uL (0.0-0.6) 04/15/20 03:43 Abs Basophils (Manual) 0.0 10^3/uL (0.0-0.2) 04/15/20 03:43 Toxic Granulation SLIGHT 04/15/20 03:43 Platelet Comment ADEQUATE 04/15/20 03:43 Polychromasia SLIGHT 04/15/20 03:43 Poikilocytosis SLIGHT 04/15/20 03:43 Anisocytosis SLIGHT 04/15/20 03:43 Ovalocytes SLIGHT 04/15/20 03:43 PT 28.7 SEC (11.4-15.4) H 04/13/20 01:51 INR 2.72 04/13/20 01:51 Carbonic Acid 1.09 mmol/L (1.05-1.35) 04/14/20 09:00 HCO3/H2CO3 Ratio 21:1 04/14/20 09:00 ABG pH 7.43 (7.35-7.45) 04/14/20 09:00 ABG pCO2 36.3 mmHg (35-45) 04/14/20 09:00 ABG pO2 93.2 mmHg (80-100) 04/14/20 09:00 ABG HCO3 23.6 mmol/L (20-24) 04/14/20 09:00 ABG Total CO2 24.7 mmol/L (23-27) 04/14/20 09:00 ABG O2 Saturation 97.4 % (94-98) 04/14/20 09:00 ABG Base Excess -0.4 mmol/L 04/14/20 09:00 FiO2 70% 04/14/20 09:00 Sodium 139.3 mmol/L (137-145) 04/20/20 06:50 Potassium 3.7 mmol/L (3.6-5.0) 04/20/20 06:50 Chloride 104 mmol/L (98-107) 04/20/20 06:50 Carbon Dioxide 29 mmol/L (22-30) 04/20/20 06:50 Anion Gap 6 (5-19) 04/20/20 06:50 BUN 19 mg/dL (7-20) 04/20/20 06:50 Creatinine 0.48 mg/dL (0.52-1.25) L 04/20/20 06:50 Est GFR ( Amer) > 60 (>60) 04/20/20 06:50 Est GFR (MDRD) Non-Af > 60 (>60) 04/20/20 06:50 Glucose 88 mg/dL (75-110) 04/20/20 06:50 POC Glucose 116 mg/dL (70-110) H 04/14/20 01:46 Lactic Acid 2.0 mmol/L (0.7-2.1) 04/13/20 09:07 Calcium 8.1 mg/dL (8.4-10.2) L 04/20/20 06:50 Ionized Calcium [place] 1.16 mmol/L (1.14-1.30) 04/18/20 05:10 Phosphorus 2.9 mg/dL (2.5-4.5) 04/16/20 03:45 Magnesium 2.0 mg/dL (1.6-2.3) 04/16/20 03:45 Total Bilirubin 0.4 mg/dL (0.2-1.3) 04/13/20 01:51 Direct Bilirubin 0.3 mg/dL (0.0-0.4) 04/13/20 01:51 Neonat Total Bilirubin Not Reportable 04/13/20 01:51 Neonat Direct Bilirubin Not Reportable 04/13/20 01:51 Neonat Indirect Bili Not Reportable 04/13/20 01:51 AST 21 U/L (17-59) 04/13/20 01:51 ALT 7 U/L (<50) 04/13/20 01:51 Alkaline Phosphatase 59 U/L (38-126) 04/13/20 01:51 Creatine Kinase 78 U/L (55-170) 04/14/20 08:16 Troponin I 0.089 ng/mL 04/13/20 01:51 NT-Pro-B Natriuret Pep 2300 pg/mL (<125) H 04/13/20 01:51 Total Protein 7.3 g/dL (6.3-8.2) 04/13/20 01:51 Albumin 3.5 g/dL (3.5-5.0) 04/13/20 01:51 Random Cortisol 14.20 ug/dL (None Established) 04/13/20 19:39 Urine Color YELLOW 04/13/20 02:55 Urine Appearance CLOUDY 04/13/20 02:55 Urine pH 5.0 (5.0-9.0) 04/13/20 02:55 Ur Specific [place] 1.029 04/13/20 02:55 Urine Protein 100 mg/dL (NEGATIVE) H 04/13/20 02:55 Urine Glucose (UA) NEGATIVE mg/dL (NEGATIVE) 04/13/20 02:55 Urine Ketones TRACE mg/dL (NEGATIVE) H 04/13/20 02:55 Urine Blood SMALL (NEGATIVE) H 04/13/20 02:55 Urine Nitrite (Reflex) NEGATIVE (NEGATIVE) 04/13/20 02:55 Urine Bilirubin SMALL (NEGATIVE) H 04/13/20 02:55 Urine Urobilinogen NEGATIVE mg/dL (<2.0) 04/13/20 02:55 Leukocyte Esterase Rfl LARGE (NEGATIVE) H 04/13/20 02:55 Urine RBC (Auto) 19 /HPF 04/13/20 02:55 U Hyaline Cast (Auto) 52 /LPF 04/13/20 02:55 Urine Bacteria (Auto) TRACE /HPF 04/13/20 02:55 Urine WBC (Reflex) 131 /HPF 04/13/20 02:55 Urine WBC Clumps FEW /HPF 04/13/20 02:55 Squamous Epi Cells Auto 1 /HPF 04/13/20 02:55 Urine Mucus (Auto) OCC /LPF 04/13/20 02:55 Urine Ascorbic Acid NEGATIVE (NEGATIVE) 04/13/20 02:55 Stl C. Difficile GDH Ag NEGATIVE (NEGATIVE) 04/17/20 14:05 Stl C.difficile Tox A&B NEGATIVE (NEGATIVE) 04/17/20 14:05 COVID-19 Source NASOPHARYNGEAL 04/13/20 03:52 COVID-19 (DIAZ) NOT DETECTED 04/13/20 03:52 04/13/20 01:51 Troponin I 0.089 NT-Pro-B Natriuret Pep 2300 H Impressions: Chest X-Ray 04/13/20 02:26 IMPRESSION: Progressive left basilar airspace and pleural disease. Pneumonia could have this appearance. Head CT 04/13/20 03:08 IMPRESSION: No acute intracranial findings. Chest X-Ray 04/13/20 08:27 IMPRESSION: Endotracheal tube tip overlies midthoracic trachea. Persistent dense left lower lobe consolidation, likely pneumonia, with small associated pleural effusion. KUB X-Ray 04/13/20 08:27 IMPRESSION: OG tube has been placed as described. Chest X-Ray 04/14/20 06:00 IMPRESSION: BASILAR DENSITIES AND PLEURAL EFFUSIONS. IMPROVED AERATION IN THE LEFT LUNG BASE Chest X-Ray 04/15/20 06:00 IMPRESSION: Unchanged radiographic appearance of the chest. Chest X-Ray 04/16/20 06:00 IMPRESSION: STABLE APPEARANCE OF THE CHEST. SUPPORT DEVICES UNCHANGED. Plan Health Concerns: Encourage pulmonary toilet and frequent coughing with deep inspirations Time Spent: Greater than 30 Minutes Stroke Is this a Stroke Patient?: No Acute Heart Failure - Is this a Heart Failure Patient?: No
[2020-04-21 12:53] VITALS: BP 127/54
== END 2020-04-21 17:08 | DRG 208 ==
LOC: ER 02:02 → EH 03:58 → ICU 06:09 → 3S 04-19 00:45
PROVIDERS: ADMIT Anesthesiology; ATTEND Internal Medicine
PROC: 0BH17EZ Insertion of Endotracheal Airway into Trachea, Via Natural or Artificial Opening (ICD-10-PCS; principal; 2020-04-13)
PROC: 5A1945Z Respiratory Ventilation, 24-96 Consecutive Hours (ICD-10-PCS; 2020-04-13)
DX: J15.211 Pneumonia due to Methicillin susceptible Staphylococcus aureus (principal); J96.01 Acute respiratory failure with hypoxia; L89.153 Pressure ulcer of sacral region, stage 3; G93.41 Metabolic encephalopathy; J96.02 Acute respiratory failure with hypercapnia; M33.20 Polymyositis, organ involvement unspecified; J44.0 Chronic obstructive pulmonary disease with (acute) lower respiratory infection; J15.1 Pneumonia due to Pseudomonas; I50.9 Heart failure, unspecified; E78.5 Hyperlipidemia, unspecified; E66.9 Obesity, unspecified; J44.9 Chronic obstructive pulmonary disease, unspecified; G47.33 Obstructive sleep apnea (adult) (pediatric); M06.9 Rheumatoid arthritis, unspecified; M79.7 Fibromyalgia; Z20.828 Contact with and (suspected) exposure to other viral communicable diseases; Z86.711 Personal history of pulmonary embolism; Z79.01 Long term (current) use of anticoagulants; Z79.899 Other long term (current) drug therapy; Z68.32 Body mass index [BMI] 32.0-32.9, adult
CPT/HCPCS: 31500; 36415; 70450; 71045; 74018; 80048; 80053; 81001; 82330; 82533; 82550; 82803; 82962; 83605; 83735; 83880; 84100; 84484; 85025; 85027; 85610; 87040; 87070; 87077; 87086; 87088; 87150; 87186; 87205; 87324; 87449; 87635; 93005; 93010; 94002; 94003; 94640; 94660; 94667; 94799; 96361; 96365; 99221; 99291; J0610; C9803; J0330; J0692; J1940; J2020; J2405; J2543; J2920; J3480; J3490; J7030; J7060; J7613

== ENCOUNTER 2020-05-15 09:28 | Inpatient (IN) | payer MEDICARE, OTHER, MEDICAID ==
[2020-05-15] MEDS ORDERED: NORMAL SALINE 500 ML IV ONE (09:46)
[2020-05-15] MEDS ORDERED: CEFEPIME 2 GM/D5W RTU 2 GM/50 ML RTUPB IV ONE (09:51)
[2020-05-15] MEDS ORDERED: VANCOMYCIN HCL INJ 1000 MG VIAL IV ONE (09:52)
[2020-05-15 09:54] LABS: ABSOLUTE BASOPHILS # (AUTO) 0.2 10^3/uL (0.0-0.2); ABSOLUTE EOSINOPHILS # (AUTO) 0.1 10^3/uL (0.0-0.6); ABSOLUTE LYMPHOCYTES (AUTO) 1.7 10^3/uL (0.5-4.7); ABSOLUTE MONOCYTES (AUTO) 0.7 10^3/uL (0.1-1.4); ABSOLUTE NEUT (AUTO) 16.9 10^3/uL (1.7-8.2); BASOPHILS % (AUTO) 0.9 % (0-2); EOSINOPHILS % (AUTO) 0.3 % (0-6); HEMATOCRIT 37.6 % (37.9-51.0); HEMOGLOBIN 12.7 g/dL (13.5-17.0); LYMPHOCYTES % (AUTO) 8.7 % (13-45); MEAN CORPUSCULAR HEMOGLOBIN 29.1 pg (27.0-33.4); MEAN CORPUSCULAR HGB CONC 33.7 g/dL (32.0-36.0); MEAN CORPUSCULAR VOLUME 86 fl (80-97); MONOCYTES % (AUTO) 3.4 % (3-13); PLATELET COUNT 378 10^3/uL (150-450); RED BLOOD COUNT 4.36 10^6/uL (4.35-5.55); RED CELL DISTRIBUTION WIDTH 15.2 % (11.5-14.0); SEGMENTED NEUTROPHILS % (AUTO) 86.7 % (42-78); TOTAL CELLS COUNTED % (AUTO) 100 %; WHITE BLOOD COUNT 19.5 10^3/uL (4.0-10.5)
[2020-05-15 10:08] LABS: INTERNATIONAL RATION (INR) 2.06; PROTHROMBIN TIME 23.3 SEC (11.4-15.4)
[2020-05-15 10:09] LABS: PARTIAL THROMBOPLASTIN TIME 45.5 SEC (23.5-35.8)
[2020-05-15 10:12] LABS: D-DIMER 0.47 ug/mL (0.00-0.50)
[2020-05-15 10:29] LABS: ALBUMIN 3.6 g/dL (3.5-5.0); ALKALINE PHOSPHATASE 54 U/L (38-126); ANION GAP 9 (5-19); ASPARTATE AMINO TRANSFERASE 22 U/L (17-59); BILIRUBIN,DIRECT 0.5 mg/dL (0.0-0.4); BILIRUBIN,TOTAL 0.8 mg/dL (0.2-1.3); BLOOD UREA NITROGEN 11 mg/dL (7-20); CALCIUM 8.7 mg/dL (8.4-10.2); CARBON DIOXIDE 35 mmol/L (22-30); CHLORIDE 91 mmol/L (98-107); GLUCOSE 112 mg/dL (75-110); POTASSIUM 3.7 mmol/L (3.6-5.0); TOTAL PROTEIN 7.4 g/dL (6.3-8.2)
[2020-05-15 10:41] LABS: NT PRO BNP 183 pg/mL (<125)
[2020-05-15 10:42] LABS: CREATINE KINASE MB < 0.22 ng/mL (<4.55); TROPONIN I < 0.012 ng/mL
[2020-05-15 10:47] LABS: ARTERIAL BLOOD BASE EXCESS 7.9 mmol/L; ARTERIAL BLOOD H2CO3 1.67 mmol/L (1.05-1.35); ARTERIAL BLOOD HCO3 34.4 mmol/L (20-24); ARTERIAL BLOOD O2 SATURATION 83.8 % (94-98); ARTERIAL BLOOD PCO2 55.5 mmHg (35-45); ARTERIAL BLOOD PH 7.41 (7.35-7.45); ARTERIAL BLOOD PO2 48.5 mmHg (80-100); ARTERIAL BLOOD TOTAL CO2 36.1 mmol/L (23-27)
[2020-05-15 10:48] LABS: ARTERIAL BLOOD FIO2 100%
[2020-05-15 11:10] LABS: APPEARANCE,URINE CLOUDY; BILIRUBIN,URINE NEGATIVE (NEGATIVE); CALCIUM OXALATE CRYSTALS,URINE RARE /HPF; COLOR,URINE YELLOW; GLUCOSE, URINE NEGATIVE (NEGATIVE); KETONES,URINE NEGATIVE (NEGATIVE); LEUKOCYTE ESTERASE,URINE LARGE (NEGATIVE); NITRITE,URINE POSITIVE (NEGATIVE); PROTEIN,URINE 30 mg/dL (NEGATIVE); URINE SPECIFIC GRAVITY 1.019; UROBILINOGEN,URINE NEGATIVE mg/dL (<2.0)
[2020-05-15 11:20] LABS: A TYPE INFLUENZA AG NEGATIVE (NEGATIVE)
[2020-05-15 11:21] LABS: B INFLUENZA AG NEGATIVE (NEGATIVE)
--- NOTE | 2020-05-15 11:40 | RADIOLOGY REPORT (SQ) ---
EXAM DESCRIPTION: CHEST SINGLE VIEW IMAGES COMPLETED DATE/TIME: 05/15/2020 11:24 am REASON FOR STUDY: sobr COMPARISON: 04/16/2020 EXAM PARAMETERS: NUMBER OF VIEWS: One view. TECHNIQUE: Single frontal radiographic view of the chest acquired. RADIATION DOSE: NA LIMITATIONS: None. FINDINGS: LUNGS AND PLEURA: No focal consolidation. Blunting of the costophrenic angles possibly t race effusions versus pleural thickening. No pneumothorax. MEDIASTINUM AND HILAR STRUCTURES: No masses. Contour normal. HEART AND VASCULAR STRUCTURES: Normal heart size. BONES: No acute findings. HARDWARE: Interval extubation. Removal of the enteric tube. OTHER: No other significant finding. IMPRESSION: No evidence of acute cardiopulmonary process. TECHNICAL DOCUMENTATION: JOB ID: [id number] 2010 [employer]- All Rights Reserved Reading location - IP/workstation name: [email or web address]
[2020-05-15] MEDS ORDERED: NORMAL SALINE 1000 ML 1,000 ML IV ONE (11:44)
[2020-05-15] MEDS ORDERED: ACETAMINOPHEN 650 MG SUPP.RECT PR ONE (14:36)
[2020-05-15] MEDS ORDERED: ACETAMINOPHEN 325 MG SUPP.RECT PR ONE (14:37)
--- NOTE | 2020-05-15 15:47 | RADIOLOGY REPORT (SQ) ---
EXAM DESCRIPTION: ABDOMEN 2 VIEWS IMAGES COMPLETED DATE/TIME: 05/15/2020 3:33 pm REASON FOR STUDY: ng tube insertion COMPARISON: 04/13/2020 NUMBER OF VIEWS: Two views. TECHNIQUE: Supine and erect/decubitus radiographic images of the abdomen acquired. LIMITATIONS: None. FINDINGS: FREE AIR: None. No abnormal gas collections. LUNG BASES: Midfoot basilar ill-defined opacities. BOWEL GAS PATTERN: Nonspecific gas- containing loops of small and large bowel. No definitive patholo gic dilation. CALCIFICATIONS: No suspicious calcifications. SOFT TISSUES: No gross mass or suggestion of organomegaly. HARDWARE: Nasoenteric tube tip overlies proximal gastric body with side port just distal to the GE ju nction. BONES: No acute fracture. No worrisome bone lesions. OTHER: No other significant finding. IMPRESSION: Nasoenteric tube tip overlies proximal gastric body with side port just distal to GE mindy ction. TECHNICAL DOCUMENTATION: JOB ID: [id number] 2010 [employer]- All Rights Reserved Reading location - IP/workstation name: [email or web address]
--- NOTE | 2020-05-15 15:56 | ER Document Report ---
Entered by HEYDI BROWN SCRIBE 05/15/20 0943 Acting as scribe for:MAY ALAMO MD ED General - General Stated Complaint: POSSIBLE SEPSIS Mode of Arrival: Medic Information source: Patient, Emergency Med Personnel Notes: This 69 year old male patient with a history significant for morbid obesity, CHF, PNA, and COPD brought in by EMS from [facility] presents to the ED today for evaluation of shortness of breath. Per EMS report patient was hypotensive and hypoxic with O2 sats in the 60s. They placed the patient on 4L of supplemental O2 via NC and administered 400 ml IV fluids. Patient denies chest pain. TRAVEL OUTSIDE OF THE [place] IN LAST 30 DAYS: No - Related Data Allergies/Adverse Reactions: No Known Allergies Allergy (Verified 05/15/20 16:34) Past Medical History - General Information source: Patient, PENDING SALE TO [facility] Records - Social History Smoking Status: Unknown if Ever Smoked Smoking Education Provided: No Lives with: [facility] [place] Family History: Reviewed & Not Pertinent - Past Medical History Cardiac Medical History: Reports: Hx Congestive Heart Failure, Hx Hypercholesterolemia, Hx Pulmonary Embolism Pulmonary Medical History: Reports: Hx COPD, Hx Sleep Apnea GI Medical History: Reports: Hx Cirrhosis Musculoskeletal Medical History: Reports Hx Fibromyalgia Past Surgical History: Reports: Hx Genitourinary Surgery - TURP - Immunizations Hx Pneumococcal Vaccination: 11/12/18 Review of Systems - Review of Systems Constitutional: No symptoms reported EENT: No symptoms reported Cardiovascular: See HPI. denies: Chest pain Respiratory: See HPI, Short of breath Gastrointestinal: No symptoms reported Genitourinary: No symptoms reported Male Genitourinary: No symptoms reported Musculoskeletal: No symptoms reported Skin: No symptoms reported Hematologic/Lymphatic: No symptoms reported Neurological/Psychological: No symptoms reported -: Yes All other systems reviewed and negative Physical Exam - Vital signs Vitals: Resp Pulse Ox 29 H 87 L 05/15/20 09:33 05/15/20 09:33 - General General appearance: Alert, Other - Appears ill In distress: Severe - HEENT Head: Normocephalic, Atraumatic Eyes: Normal Pupils: PERRL - Respiratory Respiratory status: Tachypnea, Other - Hypoxic with O2 sats in the 80s initially Chest status: Nontender Breath sounds: Decreased air movement - Diminished breath sounds in the bases, Rales Chest palpation: Normal - Cardiovascular Rhythm: Regular, Tachycardia Heart sounds: Normal auscultation Murmur: No Friction rub: No Gallop: None auscultated - Abdominal Inspection: Morbidly Obese Distension: Distended Bowel sounds: Normal Tenderness: Nontender Organomegaly: No organomegaly - Back Back: Normal, Nontender - Extremities General upper extremity: Normal inspection General lower extremity: Normal inspection. No: Edema - No palpable edema - Neurological Neuro grossly intact: Yes Orientation: AAOx4 Jax Coma Scale Eye Opening: Spontaneous [place] Coma Scale Verbal: Oriented [place] Coma Scale Motor: Obeys Commands [place]on Coma Scale Total: 15 - Psychological Associated symptoms: Normal affect, Normal mood - Skin Skin Temperature: Warm Skin Moisture: Dry Skin Color: Normal Skin irregularity: Decubitus ulcer - midlie sacral decubitus ulcer grade 1 with erythema and epidermal denuded skin., other Course - Re-evaluation Re-evalutation: 05/15/20 11:44 Patient resting comfortably in no acute distress at this time. I made some adjustments to the the BiPAP: decreased O2 from 80% to 50% and increased rate from 8 to 14. 05/16/20 03:53 Patients course worsened with increased tahcycardia, tachypnea, low oxygen sats with increased respiratory distress, and consult to Qa Specialist for evaluation for ICU placement was obtained.Initially, case was discussed with Hospitalist re floor admission. Dr Garcia evaluated patient in the ED and accepted patient to admit to ICU. Patients course in ED included maonitoring and adjustments in Bipap settings, ivf boluses and treatment for sepsis due to Urinary tract infection and possible pneumonia, though inconclusive on chest xray. Covid 19 workup with viral testing, and included influenza workup as well. 05/16/20 04:12 - Vital Signs Vital signs: Temp Pulse Resp BP Pulse Ox 101.5 F H 126 H 29 H 121/74 100 05/15/20 20:09 05/16/20 02:35 05/16/20 02:35 05/15/20 23:28 05/16/20 02:35 - Laboratory Result Diagrams: 05/15/20 09:20 05/15/20 22:45 Laboratory results interpreted by me: 05/15/20 05/15/20 05/15/20 09:20 09:20 09:20 WBC 19.5 H Hgb 12.7 L Hct 37.6 L RDW 15.2 H Lymph % (Auto) 8.7 L Absolute Neuts (auto) 16.9 H Seg Neutrophils % 86.7 H PT APTT Carbonic Acid ABG pCO2 ABG pO2 ABG HCO3 ABG Total CO2 ABG O2 Saturation Sodium 135.0 L Chloride 91 L Carbon Dioxide 35 H Glucose 112 H Direct Bilirubin 0.5 H NT-Pro-B Natriuret Pep 183 H Urine Protein Urine Blood Urine Nitrite Ur Leukocyte Esterase 05/15/20 05/15/20 05/15/20 09:42 10:08 10:41 WBC Hgb Hct RDW Lymph % (Auto) Absolute Neuts (auto) Seg Neutrophils % PT 23.3 H APTT 45.5 H Carbonic Acid 1.67 H ABG pCO2 55.5 H ABG pO2 48.5 L ABG HCO3 34.4 H ABG Total CO2 36.1 H ABG O2 Saturation 83.8 L Sodium Chloride Carbon Dioxide Glucose Direct Bilirubin NT-Pro-B Natriuret Pep Urine Protein 30 H Urine Blood SMALL H Urine Nitrite POSITIVE H Ur Leukocyte Esterase LARGE H 05/15/20 09:20 05/15/20 09:20 MCV 86 fl (80-97) 05/15/20 09:20 MCH 29.1 pg (27.0-33.4) 05/15/20 09:20 MCHC 33.7 g/dL (32.0-36.0) 05/15/20 09:20 RDW 15.2 % (11.5-14.0) H 05/15/20 09:20 Seg Neutrophils % 86.7 % (42-78) H 05/15/20 09:20 Carbonic Acid 1.67 mmol/L (1.05-1.35) H 05/15/20 10:08 HCO3/H2CO3 Ratio 20:1 05/15/20 10:08 ABG pH 7.41 (7.35-7.45) 05/15/20 10:08 ABG pCO2 55.5 mmHg (35-45) H 05/15/20 10:08 ABG pO2 48.5 mmHg (80-100) L 05/15/20 10:08 ABG HCO3 34.4 mmol/L (20-24) H 05/15/20 10:08 ABG O2 Saturation 83.8 % (94-98) L 05/15/20 10:08 ABG Base Excess 7.9 mmol/L 05/15/20 10:08 FiO2 100% 05/15/20 10:08 Chloride 91 mmol/L (98-107) L 05/15/20 09:20 Carbon Dioxide 35 mmol/L (22-30) H 05/15/20 09:20 Anion Gap 9 (5-19) 05/15/20 09:20 Est GFR ( Amer) > 60 (>60) 05/15/20 09:20 Glucose 112 mg/dL (75-110) H 05/15/20 09:20 Lactic Acid 0.9 mmol/L (0.7-2.1) 05/15/20 10:41 Calcium 8.7 mg/dL (8.4-10.2) 05/15/20 09:20 Ferritin 73.10 ng/mL (17.9-464.0) 05/15/20 09:20 Total Bilirubin 0.8 mg/dL (0.2-1.3) 05/15/20 09:20 AST 22 U/L (17-59) 05/15/20 09:20 Alkaline Phosphatase 54 U/L (38-126) 05/15/20 09:20 Total Protein 7.4 g/dL (6.3-8.2) 05/15/20 09:20 Albumin 3.6 g/dL (3.5-5.0) 05/15/20 09:20 Lipase 28.7 U/L (23-300) 05/15/20 09:20 Urine Color YELLOW 05/15/20 10:41 Urine Appearance CLOUDY 05/15/20 10:41 Urine pH 5.0 (5.0-9.0) 05/15/20 10:41 Ur Specific [place] 1.019 05/15/20 10:41 Urine Protein 30 mg/dL (NEGATIVE) H 05/15/20 10:41 Urine Glucose (UA) NEGATIVE mg/dL (NEGATIVE) 05/15/20 10:41 Urine Ketones NEGATIVE mg/dL (NEGATIVE) 05/15/20 10:41 Urine Blood SMALL (NEGATIVE) H 05/15/20 10:41 Urine Nitrite POSITIVE (NEGATIVE) H 05/15/20 10:41 Ur Leukocyte Esterase LARGE (NEGATIVE) H 05/15/20 10:41 Urine WBC (Auto) >182 /HPF 05/15/20 10:41 Urine RBC (Auto) 8 /HPF 05/15/20 10:41 05/15/20 05/15/20 05/15/20 09:20 15:08 15:57 CK-MB (CK-2) < 0.22 Troponin I < 0.012 Cancelled 0.025 NT-Pro-B Natriuret Pep 183 H lab values and vital signs suggested sepsis workup. WBC elevation, and possible pneumonia, and UTI. Influenza A and B both negative. Covid 19 test pending. - Diagnostic Test Radiology reviewed: Image reviewed, Reports reviewed Radiology results interpreted by me: 05/16/20 04:04 Chest X-Ray 05/15/20 00:00 IMPRESSION: 1. Interval line and tube placement as above. 2. Developing bilateral infiltration or edema. copyright 2010 [employer]- All Rights Reserved Chest X-Ray 05/15/20 09:43 IMPRESSION: No evidence of acute cardiopulmonary process. Abdomen X-Ray 05/15/20 15:11 IMPRESSION: Nasoenteric tube tip overlies proximal gastric body with side port just distal to GE junction. Review of Xrays show: chest with questionable opacities in bases. NG tube in proper positioning, - EKG Interpretation by Me Additional EKG results interpreted by me: 05/16/20 04:06 12 lead EKG shows sinus tach rate 116, nssttwchanges, LAFB and LAD, intervals of SC and QRS within normal range, and the QT interval is prolonged. No eveidence of STEMI. - Consults Dr. Garcia, Qa Specialist Time consulted: 15:30 Consulted provider: will come to ER Critical Care Note - Critical Care Note Total time excluding time spent on procedures (mins): 55 - treating sepsis, respiratory distress, ivf management,antibiotics, and consutations with purchasing expeditor, hospitalist. Discharge - Discharge Clinical Impression: UTI (urinary tract infection), COPD (chronic obstructive pulmonary disease), Acute respiratory failure, Generalized weakness, Sacral decubitus ulcer Pneumonia Qualifiers: Pneumonia type: due to methicillin-sensitive Staphylococcus aureus (MSSA) Laterality: bilateral Lung location: lower lobe of lung Qualified Code(s): J15.211 - Pneumonia due to Methicillin susceptible Staphylococcus aureus Condition: Critical Disposition: ADMITTED INPATIENT Admitting Provider: Jose (Qa Specialist) Unit Admitted: ICU I personally performed the services described in the documentation, reviewed and edited the documentation which was dictated to the scribe in my presence, and it accurately records my words and actions.
[2020-05-15] MEDS ORDERED: ONDANSETRON HCL INJ/PF 4 MG/2 ML SDV IV PRN (15:58)
[2020-05-15] MEDS ORDERED: PHARMACY COMMUNICATION ORDER MC NR (16:00)
--- NOTE | 2020-05-15 16:22 | CRITICAL CARE ADMISSION REPORT ---
HPI Date:: 05/15/20 Time:: 15:30 Reason for ICU Reason:: Risk of intubation. Admission Date/Time & PCP: Admission Date/Time: 05/15/20 15:59 Primary Care Provider: ANG ALVAREZ MD HPI: This patient is a 69 yo man from [facility] who comesd in with SOB. Placed on bipap, oxygen saturations good. Not hypercarbic but he is quite obtunded. Although he has an NG for gastric drainage he is both an intubation and aspir ation risk. He has been at [facility] last month for PNA and has a RLL infiltrate. He has polymyositis and by verbal report Parkinson's. As such he is likely an aspiration being elderly, from [place] with a neurologic disorder. He also has COPD and a hx of CHF. He is tachycardic, dehydrated as well. History obtained from:: Old records, Dr. Malik. - Diagnosis/Plan (1) Aspiration into lower respiratory tract Is this a current diagnosis for this admission?: Yes Plan: He has multiple risk factors and a CXR consistent. May be PNA but most likely aspiration (2) Tachycardia Is this a current diagnosis for this admission?: Yes Plan: His rate is 120-150 and will be treated with IVF and lopressor (3) Dehydration Is this a current diagnosis for this admission?: Yes Plan: Continue IVF being wary of CHF history (4) COPD (chronic obstructive pulmonary disease) Is this a current diagnosis for this admission?: Yes Plan: He is not wheezing buit this certainly is not helping his breathing. Albuterol, perhaps steroids and home medications. (5) SIRS (systemic inflammatory response syndrome) Is this a current diagnosis for this admission?: Yes Plan: He has tachycardia, tachypnea, fevr to 102 and WBC of 19. Meets all criteria for SIRS. Plan Summary: Keep in the ICU until more awake and no longer an intubation risk. Past Medical History Cardiac Medical History: Reports: Congestive Heart Failure, Hyperlipidema, Pulmonary Embolism Pulmonary Medical History: Reports: Chronic Obstructive Pulmonary Disease (COPD), Pneumonia - chronic, Sleep Apnea GI Medical History: Reports: Cirrhosis, Gastroesophageal Reflux Disease Musculoskeltal Medical History: Reports: Arthritis - rheumatoid, Fibromyalgia Psychiatric Medical History: Reports: Depression Hematology: Reports: Anemia Past Surgical History Past Surgical History: Reports: Other - TURP Social/Family History - Social History Lives with: Long-Term - [facility] Smoking Status: Unknown if Ever Smoked Frequency of Alcohol Use: None Hx Recreational Drug Use: No Drugs: None Hx Prescription Drug Abuse: No - Medication/Allergies Home Medications: Acetaminophen [Tylenol] 650 mg PO Q4HP PRN 04/13/20 Apremilast [Otezla] 30 mg PO BID 04/13/20 Carbidopa/Levodopa [Sinemet 10-100 mg Tablet] 1 each PO Q8 04/13/20 Fexofenadine HCl [Kely Allergy] 180 mg PO DAILY 04/13/20 Fluticasone/Vilanterol [Breo 200-25 Mcg Ellipta 14 Dose/Dpi] 1 inh IH DAILY 04/13/20 Furosemide [Lasix 40 mg Tablet] 40 mg PO QAM 04/13/20 Gabapentin 1,200 mg PO Q8 04/13/20 Guaifenesin [Mucus ER] 600 mg PO BID 04/13/20 Mag Hydrox/Aluminum Hyd/Simeth [Mylanta Maximum Strength Liq] 20 ml PO Q4HP PRN 04/13/20 Meclizine HCl 12.5 mg PO TIDP PRN 04/13/20 Ondansetron [Zofran Odt 4 mg Tablet] 4 mg PO Q6HP PRN 04/13/20 Pantoprazole Sodium [Protonix] 40 mg PO BID 04/13/20 Polyethylene Glycol 3350 [Miralax Powder 17 gm/Packet] 1 packet PO Q12HP PRN 04/13/20 Potassium Chloride 10 meq PO TID 04/13/20 Propylene Glycol [Systane Complete] 1 drop OP Q4HP PRN 04/13/20 Rivaroxaban [Xarelto] 20 mg PO QHS 04/13/20 Sertraline HCl [Zoloft 50 mg Tablet] 25 mg PO DAILY 04/13/20 Tramadol HCl [Ultram] 50 mg PO Q6HP PRN 04/13/20 Umeclidinium [place] [Incruse 62.5 Mcg Ellipta 7 Dose/Dpi] 1 inh IH DAILY 04/13/20 Ciprofloxacin HCl [Cipro 500 mg Tablet] 500 mg PO Q12 #10 tablet 04/21/20 Allergies/Adverse Reactions: No Known Allergies Allergy (Verified 01/29/19 23:54) Review of Systems ROS unobtainable: Due to mental status Physical Exam Vital Signs: Temp Pulse Resp BP Pulse Ox 31 H 148/64 H 95 05/15/20 16:00 05/15/20 16:00 05/15/20 16:00 Intake & Output 05/14/20 05/15/20 05/16/20 06:59 06:59 06:59 Intake Total 1550 Balance 1550 Weight 81.6 kg Weight/Height Weight 81.6 kg Height 5 ft 7 in General appearance: PRESENT: no acute distress Head exam: PRESENT: atraumatic, normocephalic Eye exam: PRESENT: conjunctiva pink, EOMI, PERRLA. ABSENT: scleral icterus Ear exam: PRESENT: normal external ear exam Mouth exam: PRESENT: moist, tongue midline Respiratory exam: PRESENT: clear to auscultation alfredo, decreased breath sounds. ABSENT: rales, rhonchi, wheezes Cardiovascular exam: PRESENT: tachycardia GI/Abdominal exam: PRESENT: normal bowel sounds, soft. ABSENT: distended, guarding, mass, organolmegaly, rebound, tenderness Rectal exam: PRESENT: deferred Gentrourinary exam: PRESENT: indwelling catheter Extremities exam: PRESENT: full ROM. ABSENT: calf tenderness, clubbing, pedal edema Musculoskeletal exam: PRESENT: normal inspection Neurological exam: PRESENT: altered Skin exam: PRESENT: dry Tubes/Lines: PRESENT: Other - Bipap Laboratory/Radiographs Laboratory Results: 05/15/20 09:20 05/15/20 09:20 05/15/20 05/15/20 05/15/20 09:20 09:20 10:08 WBC 19.5 H RBC 4.36 Hgb 12.7 L Hct 37.6 L MCV 86 MCH 29.1 MCHC 33.7 RDW 15.2 H Plt Count 378 Seg Neutrophils % 86.7 H Carbonic Acid 1.67 H HCO3/H2CO3 Ratio 20:1 ABG pH 7.41 ABG pCO2 55.5 H ABG pO2 48.5 L ABG HCO3 34.4 H ABG O2 Saturation 83.8 L ABG Base Excess 7.9 FiO2 100% Sodium 135.0 L Potassium 3.7 Chloride 91 L Carbon Dioxide 35 H Anion Gap 9 BUN 11 Creatinine 0.55 Est GFR ( Amer) > 60 Glucose 112 H Lactic Acid Calcium 8.7 Ferritin 73.10 Total Bilirubin 0.8 AST 22 Alkaline Phosphatase 54 Total Protein 7.4 Albumin 3.6 Lipase 28.7 Urine Color Urine Appearance Urine pH Ur Specific [place] Urine Protein Urine Glucose (UA) Urine Ketones Urine Blood Urine Nitrite Ur Leukocyte Esterase Urine WBC (Auto) Urine RBC (Auto) 05/15/20 05/15/20 10:41 10:41 WBC RBC Hgb Hct MCV MCH MCHC RDW Plt Count Seg Neutrophils % Carbonic Acid HCO3/H2CO3 Ratio ABG pH ABG pCO2 ABG pO2 ABG HCO3 ABG O2 Saturation ABG Base Excess FiO2 Sodium Potassium Chloride Carbon Dioxide Anion Gap BUN Creatinine Est GFR ( Amer) Glucose Lactic Acid 0.9 Calcium Ferritin Total Bilirubin AST Alkaline Phosphatase Total Protein Albumin Lipase Urine Color YELLOW Urine Appearance CLOUDY Urine pH 5.0 Ur Specific [place] 1.019 Urine Protein 30 H Urine Glucose (UA) NEGATIVE Urine Ketones NEGATIVE Urine Blood SMALL H Urine Nitrite POSITIVE H Ur Leukocyte Esterase LARGE H Urine WBC (Auto) >182 Urine RBC (Auto) 8 05/15/20 05/15/20 09:20 15:08 CK-MB (CK-2) < 0.22 Troponin I < 0.012 Cancelled NT-Pro-B Natriuret Pep 183 H Impressions: Chest X-Ray 05/15/20 09:43 IMPRESSION: No evidence of acute cardiopulmonary process. Abdomen X-Ray 05/15/20 15:11 IMPRESSION: Nasoenteric tube tip overlies proximal gastric body with side port just distal to GE junction. EKG: ST All labs, radiographs, diagnostic studies and EKGs were personally reviewed: Yes In addition, reports of radiographic and diagnostic studies were read: Yes Critical Time Critical Time (minutes): 40 -: The care of a critically ill patient is dynamic. This note represents a static moment in the admission process. Orders and treatments may be given simultaneously and urgently, and time is not publications sales representative of the treatment process. This patient requires Critical Care secondary to life threatening organ or limb dysfunction. Without Critical Care services, the patient is at risk for increa sed mortality and morbidity.
[2020-05-15] MEDS ORDERED: METOPROLOL TARTRATE PF/INJ 5 MG/5 ML SDV IV PRN (16:23)
[2020-05-15] MEDS: FAMOTIDINE INJ/PF 20 MG/2 ML SDV IV SCH ×2 (17:11→21:27)
[2020-05-15] MEDS: ACETAMINOPHEN 325 MG TABLET NG PRN (17:11)
[2020-05-15] MEDS: ENOXAPARIN SODIUM INJ 40 MG/0.4 ML DISP.SYRIN SUBCUT SCH (17:12)
[2020-05-15] MEDS: RINGERS SOLUTION,LACTATED 1,000 ML IV PRN ×2 (17:24→23:57)
[2020-05-15] MEDS: IPRATROPIUM/ALBUTEROL 0.5-2.5 MG/3 ML AMPUL NEB SCH ×2 (17:33→21:06)
[2020-05-15] MEDS ORDERED: ETOMIDATE INJ/PF 20 MG/10 ML SDV IV ONE (19:34)
[2020-05-15] MEDS: PROPOFOL INJ 200 MG/20 ML VIAL IV ONE ×2 (20:00→22:23)
[2020-05-15] MEDS ORDERED: DEXMEDETOMIDINE IN 0.9 % NACL 400 MCG/100 ML RTUPB IV ONE (20:37)
[2020-05-15] MEDS: DEXTROSE 5%-WATER 250 ML with NOREPINEPHRINE BITARTRATE 4 MG IV PRN ×2 (20:54)
[2020-05-15] MEDS ORDERED: NORMAL SALINE INJ/PF 0.9% 10 ML SDV IV PRN (21:23)
[2020-05-15] MEDS ORDERED: RINGERS SOLUTION,LACTATED 1,000 ML IV PRN (21:27)
[2020-05-15] MEDS ORDERED: RINGERS SOLUTION,LACTATED 1,000 ML IV ONE (21:27)
[2020-05-15] MEDS: DEXMEDETOMIDINE IN 0.9 % NACL 400 MCG/100 ML RTUPB IV PRN ×2 (21:28→23:52)
[2020-05-15] MEDS ORDERED: VANCOMYCIN HCL 0 MG in DEXTROSE 5%-WATER 250 ML IV NR (21:30)
[2020-05-15] MEDS ORDERED: PANTOPRAZOLE SODIUM 40 MG VIAL IV SCH (21:30)
--- NOTE | 2020-05-15 21:35 | Operative Report ---
Bedside Procedure - History of Present Illness History of Present Illness: Procedure: Central line placement Indication: Vasoactive medications, IV fluids, blood draws. Procedure rotary planer set up operator: EDLIA Paul Attending physician: Dr. Garcia Consent: Consent was obtained from patient's prior to the procedure. Indications, risks, and benefits were explained and all questions were addressed. Procedure summary: The [facility] central line insertion practice form was completed by RN. A timeout was performed. My hands were washed immediately prior to the procedure. I wore surgical cap, mask with protective eyewear, full gown and sterile gloves throughout the procedure. The patient was placed in Trendelenburg position. Right chest region was prepped using chlorhexidine scrub and draped in sterile fashion using a full drape. Sterile probe cover was placed on ultrasound probe. The medial and lateral heads of the sternocleidomastoid muscle were identified as was the carotid pulse. The internal jugular vein was identified using ultrasound. Anesthesia was achieved over the vein using 4 cc of 1% lidocaine. Using real-time out of plane guidance, the introducer needle was inserted into the internal jugular vein under direct ultrasound visualization. Venous blood was withdrawn. The syringe was removed and a guidewire was advanced into the introducer needle. The guidewire was visualized in the internal jugular vein by ultrasound. A small incision was made at the skin surface with a scalpel and the introducer needle was exchanged for a dilator over the guidewire. After appropriate dilation was obtained, the dilator was exchanged over a wire for a 7 Czech, 20 cm central venous catheter. The wire was removed and the catheter was sutured in place at 15 cm. A IO patch was placed and a sterile Sorbaview shield was placed over the catheter at the insertion site. The patient tolerated the procedure well without any hemodynamic compromise. At time of procedure completion, all ports aspirated and flushed properly. Postprocedure x-ray shows central line in proper place. Estimated blood loss is approximately 10 cc. Indication for Procedure: Vasoactive medications, fluids, blood draws. Date: 05/15/20 Provider: JEFFERY VANN - Central Line Right Internal jugular Consent obtained: Yes Central line pre-insertion: Sterile PPE donned, Chloraprep applied, Sterile drapes applied Central line lumen type: Triple Anesthetic type: 1% Lidocaine mL's of anesthesia: 2 Ultrasound guided: Yes CM at insertion site: 15 Line secured with sutures: Yes Central line post-insertion: Blood return from lumens, Biopatch applied, Sutured, Sterile dressing applied, Position confirmed w/ CXR Number of attempts: 1 Complications: No
--- NOTE | 2020-05-15 21:36 | RADIOLOGY REPORT (SQ) ---
EXAM DESCRIPTION: XR CHEST 1 VIEW COMPLETED DATE/TME: 05/15/2020 00:00 CLINICAL HISTORY: 69 years, Male, RIJ and ETT placement COMPARISON: 11:28 AM NUMBER OF VIEWS: 1 TECHNIQUE: Portable AP semierect view of the chest was obtained at 8:48 PM LIMITATIONS: None. FINDINGS: Endotracheal tube has been placed with the tip 4.7 cm above the kayli. Right internal jugular central catheter has been placed the tip projecting over the region of the mid SVC. Nasogastric tube has been placed with the tip extending below the diaphragm and off the edge of the study. Heart size is within normal limits for technique. Small pleural effusions are again identified. Mild patchy infiltration or edema now identified within the bilateral lower lung zones, left greater than right. Upper lung zones are clear. There is no evidence of pneumothorax. IMPRESSION: 1. Interval line and tube placement as above. 2. Developing bilateral infiltration or edema. copyright 2010 [employer]- All Rights Reserved
--- NOTE | 2020-05-15 21:37 | Operative Report ---
Bedside Procedure - History of Present Illness Indication for Procedure: Acute respiratory failure Date: 05/15/20 Provider: JEFFERY VANN - Intubation Orotracheal Time of Intubation: 19:40 Airway evaluation: Copious secretions, Poss. upper airway obst. Mallampati Classification: Class 4 Medications: Etomidate, Diprivan Intubation method: Orotracheal Blade type: Cristofer Blade size: 4 Equipment used: Glidescope ETT size: 7.5 ETT secured at: Lips ETT secured at (cm): 24 Post Intubation Xray: Yes Intubation Complications: No complications
[2020-05-15 21:42] LABS: ARTERIAL BLOOD BASE EXCESS 2.2 mmol/L; ARTERIAL BLOOD H2CO3 1.57 mmol/L (1.05-1.35); ARTERIAL BLOOD HCO3 28.5 mmol/L (20-24); ARTERIAL BLOOD O2 SATURATION 99.6 % (94-98); ARTERIAL BLOOD PH 7.36 (7.35-7.45); ARTERIAL BLOOD PO2 262.3 mmHg (80-100); ARTERIAL BLOOD TOTAL CO2 30.1 mmol/L (23-27)
[2020-05-15 21:50] LABS: ARTERIAL BLOOD FIO2 100%
[2020-05-15] MEDS ORDERED: CEFEPIME HCL 1.5 GM in DEXTROSE 5%-WATER 50 ML IV SCH (22:00)
[2020-05-15] MEDS: CEFEPIME HCL 2 GM in DEXTROSE 5%-WATER 50 ML IV SCH (22:33)
--- NOTE | 2020-05-15 22:47 | EKG REPORT ---
SEVERITY:- ABNORMAL ECG - SINUS TACHYCARDIA LEFT ANTERIOR FASCICULAR BLOCK : Confirmed by: Lance Dobbins MD 15-May-2020 22:46:56
[2020-05-15 23:40] LABS: ALBUMIN 3.1 g/dL (3.5-5.0); ANION GAP 12 (5-19); BLOOD UREA NITROGEN 8 mg/dL (7-20); CALCIUM 7.6 mg/dL (8.4-10.2); CARBON DIOXIDE 28 mmol/L (22-30); CHLORIDE 92 mmol/L (98-107); GLUCOSE 120 mg/dL (75-110); PHOSPHORUS 3.2 mg/dL (2.5-4.5)
[2020-05-15 23:41] LABS: POTASSIUM 2.9 mmol/L (3.6-5.0)
[2020-05-15] MEDS ORDERED: POTASSI CL 20 MEQ/50 ML RIDER 20 MEQ/50 ML RTUPB IV ONE (23:43)
[2020-05-16] MEDS: POTASSI CL 20 MEQ/50 ML RIDER 20 MEQ/50 ML RTUPB IV SCH ×5 (01:59→10:32)
[2020-05-16] MEDS ORDERED: PROPOFOL INJ 200 MG/20 ML VIAL IV ONE (02:00)
[2020-05-16] MEDS ORDERED: RINGERS SOLUTION,LACTATED 1,000 ML IV ONE (02:00)
[2020-05-16] MEDS ORDERED: ETOMIDATE INJ/PF 20 MG/10 ML SDV IV ONE (02:00)
[2020-05-16] MEDS: IPRATROPIUM/ALBUTEROL 0.5-2.5 MG/3 ML AMPUL NEB SCH ×4 (02:35→19:39)
[2020-05-16] MEDS: ACETAMINOPHEN 325 MG TABLET NG PRN (04:11)
[2020-05-16 04:41] LABS: HEMATOCRIT 33.8 % (37.9-51.0); HEMOGLOBIN 11.1 g/dL (13.5-17.0); MEAN CORPUSCULAR HEMOGLOBIN 28.7 pg (27.0-33.4); MEAN CORPUSCULAR HGB CONC 32.8 g/dL (32.0-36.0); MEAN CORPUSCULAR VOLUME 87 fl (80-97); PLATELET COUNT 316 10^3/uL (150-450); RED BLOOD COUNT 3.86 10^6/uL (4.35-5.55)
[2020-05-16 04:42] LABS: ANION GAP 9 (5-19); BLOOD UREA NITROGEN 8 mg/dL (7-20); CALCIUM 7.8 mg/dL (8.4-10.2); CARBON DIOXIDE 32 mmol/L (22-30); CHLORIDE 93 mmol/L (98-107); GLUCOSE 94 mg/dL (75-110); POTASSIUM 3.2 mmol/L (3.6-5.0)
[2020-05-16 04:57] LABS: PHOSPHORUS 1.2 mg/dL (2.5-4.5)
[2020-05-16] MEDS: VANCOMYCIN HCL 1,000 MG in DEXTROSE 5%-WATER 250 ML IV SCH ×2 (05:32→17:26)
[2020-05-16] MEDS: DEXMEDETOMIDINE IN 0.9 % NACL 400 MCG/100 ML RTUPB IV PRN ×4 (05:51→23:23)
[2020-05-16] MEDS: MAGNESIUM SULFATE/D5W 1 GM/100 ML RTUPB IV SCH ×2 (05:52→06:54)
--- NOTE | 2020-05-16 06:08 | Operative Report ---
Bedside Procedure - History of Present Illness Indication for Procedure: Blood pressure monitoring, blood draws. Date: 05/15/20 Provider: JEFFERY VANN - Additional Procedures Arterial Line Time performed: 21:35 Notes: Indication: Blood pressure monitoring, lab draws. Procedure pellet press operator: DELIA Paul Attending physician: Dr. Garcia Consent: The procedure was performed emergently and the permission was implied because of the emergent nature. Procedure summary: A timeout was performed. My hands were washed immediately prior to the procedure. I were surgical cap, mask with protective eyewear, sterile gown and sterile gloves throughout the procedure. After an Howard test was performed to ensure adequate perfusion and collateral circulation, the right wrist was prepped using chlorhexidine scrub and draped in sterile fashion. A radial pulse was identified and the wrist was positioned in the optimal position for radial cannulation. Anesthesia was achieved using 1% lidocaine. Using the radial arterial line kit, a needle was inserted into the radial artery. Arterial blood was seen to pulsate in the flash chamber. The internal guidewire was advanced easily into the radial artery. The catheter was then advanced over the wire and the needle and wire were withdrawn. The catheter was sutured in place. A sterile OpSite was placed over the catheter at the insertion site. The patient tolerated the procedure without any hemodynamic compromise. At the time of procedure completion, the catheter was connected to the environmental monitoring specialist and calibrated. Appropriate waveform and blood pressure tracing was observed. Estimated blood loss is 5 cc.
[2020-05-16] MEDS: DEXTROSE 5%-WATER 250 ML with NOREPINEPHRINE BITARTRATE 4 MG IV PRN ×2 (08:12)
[2020-05-16] MEDS: HYDROCORTISONE SOD SUCCINATE INJ/PF 100 MG/2 ML SDV IV SCH ×3 (08:12→21:00)
[2020-05-16] MEDS: FAMOTIDINE INJ/PF 20 MG/2 ML SDV IV SCH ×2 (10:31→21:00)
[2020-05-16] MEDS: ENOXAPARIN SODIUM INJ 40 MG/0.4 ML DISP.SYRIN SUBCUT SCH (10:31)
[2020-05-16] MEDS: CEFEPIME HCL 2 GM in DEXTROSE 5%-WATER 50 ML IV SCH ×2 (10:31→21:00)
[2020-05-16] MEDS ORDERED: (PENDING PHARMACY ID) (Acetaminophen [Tylenol] 650 MG) PO PRN (11:05)
[2020-05-16] MEDS ORDERED: POLYETHYLENE GLYCOL 3350 POWDER 17 GM/1 PACKET PO PRN (11:05)
[2020-05-16] MEDS ORDERED: [UNRECOGNIZED DRUG - OTHER] PO PRN (11:05)
[2020-05-16] MEDS ORDERED: PROPYLENE GLYCOL OU PRN (11:05)
[2020-05-16] MEDS ORDERED: MAGNESIUM HYDROXIDE PO PRN (11:05)
[2020-05-16] MEDS ORDERED: ALUMINUM HYDROXIDE PO PRN (11:05)
[2020-05-16] MEDS ORDERED: SIMETHICONE PO PRN (11:05)
[2020-05-16] MEDS ORDERED: LEVETIRACETAM 500 MG TABLET PO SCH (11:15)
[2020-05-16] MEDS ORDERED: (PENDING PHARMACY ID) (Apremilast [Otezla] 30 MG) PO SCH (11:15)
--- NOTE | 2020-05-16 11:15 | PDOC CRITICAL CARE PROG REPORT ---
General Date:: 05/16/20 ICU Day:: 2 Ventilator Day:: 1 Hospital Day:: 2 Resuscitation Status: Full Code Events in the past 12 to 24 Hours:: Now intubated. Review of systems relevant to events:: Respiratory, neurologic Reason for ICU Addmission:: Now intubated - Medications: Medications reviewed and adjusted accordingly: Yes Vasopressors:: Levophed Sedation:: Precedex. Physical Exam Vital Signs: Temp Pulse Resp BP Pulse Ox 100.6 F H 91 16 153/62 H 100 05/16/20 08:00 05/16/20 10:00 05/16/20 10:00 05/16/20 10:00 05/16/20 10:00 Intake & Output 05/15/20 05/16/20 05/17/20 06:59 06:59 06:59 Intake Total 4929 99 Output Total 2000 Balance 2929 99 Weight 84.6 kg Weight/Height Weight 84.6 kg Height 5 ft 7 in General appearance: PRESENT: no acute distress Head exam: PRESENT: atraumatic, normocephalic Eye exam: PRESENT: conjunctiva pink, EOMI, PERRLA. ABSENT: scleral icterus Ear exam: PRESENT: normal external ear exam Mouth exam: PRESENT: moist, tongue midline Respiratory exam: PRESENT: clear to auscultation alfredo, rhonchi - Both sides, R>L. ABSENT: rales, wheezes Cardiovascular exam: PRESENT: RRR. ABSENT: diastolic murmur, rubs, systolic murmur GI/Abdominal exam: PRESENT: normal bowel sounds, soft. ABSENT: distended, guarding, mass, organolmegaly, rebound, tenderness Rectal exam: PRESENT: deferred Extremities exam: PRESENT: full ROM. ABSENT: calf tenderness, clubbing, pedal edema Musculoskeletal exam: PRESENT: normal inspection Neurological exam: PRESENT: altered, CN II-XII grossly intact, other - Sedated but a bit more awake. Skin exam: PRESENT: dry Tubes/Lines: PRESENT: Endotracheal Tube, Central Line, Arterial Catheter, Nasogastic Tube Laboratory/Radiographs Laboratory Results: 05/16/20 03:55 05/16/20 03:55 05/15/20 05/15/20 05/15/20 09:20 10:41 10:41 WBC RBC Hgb Hct MCV MCH MCHC RDW Plt Count Carbonic Acid HCO3/H2CO3 Ratio ABG pH ABG pCO2 ABG pO2 ABG HCO3 ABG O2 Saturation ABG Base Excess FiO2 Sodium Potassium Chloride Carbon Dioxide Anion Gap BUN Creatinine Est GFR ( Amer) Glucose Lactic Acid 0.9 Calcium Phosphorus Magnesium Ferritin 73.10 Albumin Urine Color YELLOW Urine Appearance CLOUDY Urine pH 5.0 Ur Specific [place] 1.019 Urine Protein 30 H Urine Glucose (UA) NEGATIVE Urine Ketones NEGATIVE Urine Blood SMALL H Urine Nitrite POSITIVE H Ur Leukocyte Esterase LARGE H Urine WBC (Auto) >182 Urine RBC (Auto) 8 05/15/20 05/15/20 05/15/20 21:12 22:45 22:45 WBC RBC Hgb Hct MCV MCH MCHC RDW Plt Count Carbonic Acid 1.57 H HCO3/H2CO3 Ratio 18:1 ABG pH 7.36 ABG pCO2 52.0 H ABG pO2 262.3 H ABG HCO3 28.5 H ABG O2 Saturation 99.6 H ABG Base Excess 2.2 FiO2 100% Sodium 132.1 L Potassium 2.9 L* Chloride 92 L Carbon Dioxide 28 Anion Gap 12 BUN 8 Creatinine 0.39 L Est GFR ( Amer) > 60 Glucose 120 H Lactic Acid 3.1 H Calcium 7.6 L Phosphorus 3.2 Magnesium Ferritin Albumin 3.1 L Urine Color Urine Appearance Urine pH Ur Specific [place] Urine Protein Urine Glucose (UA) Urine Ketones Urine Blood Urine Nitrite Ur Leukocyte Esterase Urine WBC (Auto) Urine RBC (Auto) 05/16/20 05/16/20 03:55 03:55 WBC 26.0 H RBC 3.86 L Hgb 11.1 L Hct 33.8 L MCV 87 MCH 28.7 MCHC 32.8 RDW 15.0 H Plt Count 316 Carbonic Acid HCO3/H2CO3 Ratio ABG pH ABG pCO2 ABG pO2 ABG HCO3 ABG O2 Saturation ABG Base Excess FiO2 Sodium 134.3 L Potassium 3.2 L Chloride 93 L Carbon Dioxide 32 H Anion Gap 9 BUN 8 Creatinine 0.44 L Est GFR ( Amer) > 60 Glucose 94 Lactic Acid Calcium 7.8 L Phosphorus 1.2 L D Magnesium 1.4 L Ferritin Albumin Urine Color Urine Appearance Urine pH Ur Specific [place] Urine Protein Urine Glucose (UA) Urine Ketones Urine Blood Urine Nitrite Ur Leukocyte Esterase Urine WBC (Auto) Urine RBC (Auto) 05/15/20 10:00 Blood Blood Culture (PCR) - Final Staphylococcus Species 05/15/20 05/15/20 05/15/20 09:20 15:08 15:57 CK-MB (CK-2) < 0.22 Troponin I < 0.012 Cancelled 0.025 NT-Pro-B Natriuret Pep 183 H Impressions: Chest X-Ray 05/15/20 09:43 IMPRESSION: No evidence of acute cardiopulmonary process. Abdomen X-Ray 05/15/20 15:11 IMPRESSION: Nasoenteric tube tip overlies proximal gastric body with side port just distal to GE junction. All labs, radiographs, diagnostic studies and EKGs were personally reviewed: Yes In addition, reports of radiographic and diagnostic studies were read: Yes Assessment and Plan - Diagnosis (1) Aspiration into lower respiratory tract Qualifiers: Encounter type: initial encounter Qualified Code(s): T17.800A - Unspecified foreign body in other parts of respiratory tract causing asphyxiation, initial encounter Is this a current diagnosis for this admission?: Yes Plan: He is still acting like an aspiration. Antibiotics pending cultures. WBC elevated to 26 (2) Tachycardia Is this a current diagnosis for this admission?: Yes Plan: Improved (3) Dehydration Is this a current diagnosis for this admission?: Yes Plan: Improved (4) COPD (chronic obstructive pulmonary disease) Qualifiers: COPD type: emphysema Emphysema type: centrilobular Qualified Code(s): J43.2 - Centrilobular emphysema Is this a current diagnosis for this admission?: Yes Plan: No wheezing. Begin weaning trials. (5) SIRS (systemic inflammatory response syndrome) Is this a current diagnosis for this admission?: Yes Plan: Still present (6) Hypoadrenalism Is this a current diagnosis for this admission?: Yes Plan: Now on stress doses of steroids. Should help BP as well as lungs. Plan Summary: Start weaning trials today. Critical Time Critical Time (minutes): 40 Level of Care: ICU Anticipated discharge: SNF Anticipated DC Timeframe: Other -: 1. The care of a critical patient is a dynamic process. This note is a retail account representative synopsis but static in nature. The timeframe for treatments given in order is not necessarily the actual time these treatments may have been done. 2. This patient requires critical care secondary to ongoing requirements for therapy not offered or safe outside the critical care environment. Transfer to a lower level of care will result in altered life or limb morbidity and mortality. 3. Multidisciplinary rounds completed. 4. ABCDE bundle addressed.
[2020-05-16] MEDS ORDERED: MAG HYDROX/AL HYDROX/SIMETH SUSP 30 ML UDCUP PO PRN (13:51)
[2020-05-16] MEDS ORDERED: CARBOXYMETHYLCELLULOSE SOD 0.5% 0.4 ML DROPERETTE OU PRN (13:54)
[2020-05-16] MEDS ORDERED: POLYETHYLENE GLYCOL 3350 POWDER 17 GM/1 PACKET NG PRN (14:00)
[2020-05-16] MEDS ORDERED: MAG HYDROX/AL HYDROX/SIMETH SUSP 30 ML UDCUP NG PRN (14:00)
[2020-05-16] MEDS ORDERED: UMECLIDINIUM BROMIDE 62.5 MCG/DOSE IH SCH (14:00)
[2020-05-16] MEDS ORDERED: CARBIDOPA/LEVODOPA 10-100 MG TABLET PO SCH (14:00)
[2020-05-16] MEDS: DULOXETINE HCL 30 MG CAPSULE.DR PO SCH (14:16)
[2020-05-16] MEDS: CARBIDOPA/LEVODOPA 10-100 MG TABLET NG SCH ×2 (14:31→21:00)
[2020-05-16] MEDS: RINGERS SOLUTION,LACTATED 1,000 ML IV PRN ×2 (14:32→23:19)
[2020-05-16] MEDS: GUAIFENESIN SYRP 200 MG/10 ML UDC NG SCH ×2 (17:26→23:18)
[2020-05-16] MEDS ORDERED: GUAIFENESIN 600 MG TABLET.SA PO SCH (18:00)
[2020-05-16] MEDS ORDERED: ZINC OXIDE TOP SCH (18:00)
[2020-05-16] MEDS ORDERED: MENTHOL TOP SCH (18:00)
[2020-05-16] MEDS: LEVETIRACETAM ORAL SOLN 500 MG/5 ML UDCUP NG SCH (21:00)
--- NOTE | 2020-05-16 22:11 | CDI QUERY ---
CDI Query CDI Review: We are seeking further clarification of documentation to reflect the severity of illness of your patient. Per ED Notes: Stated Complaint: POSSIBLE SEPSIS presents to the ED today for evaluation of shortness of breath. Per EMS report patient was hypotensive and hypoxic with O2 sats in the 60s. They placed the patient on 4L of supplemental O2 via NC and administered 400 ml IV fluids. Temp HR Resp BP Pulse Ox 101.5 F H 126 H 29 H 121/74 100 Per Critical Care H&P: SIRS (systemic inflammatory response syndrome) He has tachycardia, tachypnea, fevr to 102 and WBC of 19. Meets all criteria for SIRS. Per Procedure Note: Bedside Procedure - History of Present Illness Indication for Procedure: Acute respiratory failure Date: 05/15/20 Based on your medical judgment, can you further clarify in the progress notes the cause of these systemic findings in the progress notes such as: > Sepsis >Severe Sepsis with organ dysfunction (acute respiratory failure) > A localized infection only > Non-infectious SIRS > Another condition (please specify) > None of the above / Not applicable Thank you for your consideration. RANDEE TrippN RN Clinical Teachers Aide Physician Advisor [email or web address]
[2020-05-16] MEDS: RIVAROXABAN 10 MG TABLET NG SCH (23:30)
[2020-05-17] MEDS: IPRATROPIUM/ALBUTEROL 0.5-2.5 MG/3 ML AMPUL NEB SCH ×4 (02:32→19:59)
[2020-05-17] MEDS: GUAIFENESIN SYRP 200 MG/10 ML UDC NG SCH ×3 (05:19→17:19)
[2020-05-17] MEDS: CARBIDOPA/LEVODOPA 10-100 MG TABLET NG SCH ×3 (05:21→21:04)
[2020-05-17] MEDS: VANCOMYCIN HCL 1,000 MG in DEXTROSE 5%-WATER 250 ML IV SCH ×3 (05:21→23:05)
[2020-05-17] MEDS: HYDROCORTISONE SOD SUCCINATE INJ/PF 100 MG/2 ML SDV IV SCH ×3 (05:21→21:00)
[2020-05-17 05:30] LABS: ARTERIAL BLOOD BASE EXCESS 6.7 mmol/L; ARTERIAL BLOOD H2CO3 0.95 mmol/L (1.05-1.35); ARTERIAL BLOOD HCO3 28.6 mmol/L (20-24); ARTERIAL BLOOD PCO2 31.6 mmHg (35-45); ARTERIAL BLOOD PH 7.57 (7.35-7.45); ARTERIAL BLOOD PO2 52.6 mmHg (80-100); ARTERIAL BLOOD TOTAL CO2 29.5 mmol/L (23-27)
[2020-05-17 05:31] LABS: ARTERIAL BLOOD FIO2 21%
[2020-05-17 05:33] LABS: HEMATOCRIT 31.6 % (37.9-51.0); HEMOGLOBIN 10.5 g/dL (13.5-17.0); MEAN CORPUSCULAR HEMOGLOBIN 28.4 pg (27.0-33.4); MEAN CORPUSCULAR HGB CONC 33.3 g/dL (32.0-36.0); MEAN CORPUSCULAR VOLUME 85 fl (80-97); PLATELET COUNT 334 10^3/uL (150-450); RED BLOOD COUNT 3.71 10^6/uL (4.35-5.55); RED CELL DISTRIBUTION WIDTH 15.2 % (11.5-14.0); WHITE BLOOD COUNT 16.1 10^3/uL (4.0-10.5)
[2020-05-17 06:03] LABS: ANION GAP 10 (5-19); BLOOD UREA NITROGEN 8 mg/dL (7-20); CALCIUM 8.1 mg/dL (8.4-10.2); CARBON DIOXIDE 28 mmol/L (22-30); CHLORIDE 95 mmol/L (98-107); GLUCOSE 128 mg/dL (75-110); PHOSPHORUS 1.3 mg/dL (2.5-4.5); VANCOMYCIN,TROUGH 9.5 ug/mL (5.0-20.0)
[2020-05-17 06:07] LABS: POTASSIUM 2.7 mmol/L (3.6-5.0)
[2020-05-17 06:34] LABS: ABSOLUTE LYMPHOCYTES# (MANUAL) 0.2 10^3/uL (0.5-4.7); ABSOLUTE MONOCYTES # (MANUAL) 0.2 10^3/uL (0.1-1.4); BASOPHILS % (MANUAL) 0 % (0-2); EOSINOPHILS % (MANUAL) 0 % (0-6); LYMPHOCYTES % (MANUAL) 1 % (13-45); MONOCYTES % (MANUAL) 1 % (3-13); SEGMENTED NEUTROPHILS % (MAN) 98 % (42-78); TOTAL CELLS COUNTED 100
[2020-05-17 06:35] LABS: ANISOCYTOSIS SLIGHT; SCHISTOCYTES SLIGHT
[2020-05-17 06:37] LABS: BURR CELLS SLIGHT; OVALOCYTES SLIGHT
[2020-05-17 06:38] LABS: PLATELET COMMENT ADEQUATE
--- NOTE | 2020-05-17 08:11 | RADIOLOGY REPORT (SQ) ---
EXAM DESCRIPTION: CHEST SINGLE VIEW IMAGES COMPLETED DATE/TIME: 05/17/2020 5:43 am REASON FOR STUDY: Respiratory Failure COMPARISON: 05/15/2020. EXAM PARAMETERS: NUMBER OF VIEWS: One view. TECHNIQUE: Single frontal radiographic view of the chest acquired. RADIATION DOSE: NA LIMITATIONS: None. FINDINGS: LUNGS AND PLEURA: Basilar densities with improved aeration. MEDIASTINUM AND HILAR STRUCTURES: No masses. Contour normal. HEART AND VASCULAR STRUCTURES: Heart normal in size. Normal vasculature. BONES: No acute findings. HARDWARE: Stable endotracheal tube, nasogastric tube, central line OTHER: No other significant finding. IMPRESSION: IMPROVED AERATION. TECHNICAL DOCUMENTATION: JOB ID: [id number] [email or web address]- All Rights Reserved Reading location - IP/workstation name: [email or web address]
--- NOTE | 2020-05-17 09:47 | PDOC CRITICAL CARE PROG REPORT ---
General Date:: 05/17/20 ICU Day:: 2 Hospital Day:: 2 Resuscitation Status: Full Code Events in the past 12 to 24 Hours:: More awake. Doing better from a pulmonary standpoint. Review of systems relevant to events:: Pulmonary, neurologic. Reason for ICU Addmission:: Now intubated - Medications: Medications reviewed and adjusted accordingly: Yes Vasopressors:: None Sedation:: Precedex now off. Physical Exam Vital Signs: Temp Pulse Resp BP Pulse Ox 99.1 F 82 30 H 86/78 L 96 05/17/20 09:08 05/17/20 08:25 05/17/20 08:25 05/17/20 08:00 05/17/20 08:25 Intake & Output 05/16/20 05/17/20 05/18/20 06:59 06:59 06:59 Intake Total 4929 4080 283 Output Total 1999 2350 250 Balance 2929 1730 33 Weight 84.6 kg 85.8 kg Weight/Height Weight 85.8 kg Height 5 ft 7 in General appearance: PRESENT: no acute distress Head exam: PRESENT: atraumatic, normocephalic Eye exam: PRESENT: conjunctiva pink, EOMI, PERRLA. ABSENT: scleral icterus Ear exam: PRESENT: normal external ear exam Mouth exam: PRESENT: moist, tongue midline Respiratory exam: PRESENT: clear to auscultation alfredo, decreased breath sounds. ABSENT: rales, rhonchi, wheezes Cardiovascular exam: PRESENT: RRR. ABSENT: diastolic murmur, rubs, systolic murmur GI/Abdominal exam: PRESENT: normal bowel sounds, soft. ABSENT: distended, guarding, mass, organolmegaly, rebound, tenderness Rectal exam: PRESENT: deferred Gentrourinary exam: PRESENT: indwelling catheter Extremities exam: PRESENT: +1 edema Musculoskeletal exam: PRESENT: normal inspection Neurological exam: PRESENT: alert, altered, awake, CN II-XII grossly intact Skin exam: PRESENT: dry, intact, warm. ABSENT: cyanosis, rash Tubes/Lines: PRESENT: Endotracheal Tube, Central Line, Arterial Catheter, Nasogastic Tube Laboratory/Radiographs Laboratory Results: 05/17/20 05:00 05/17/20 05:00 05/17/20 05/17/20 05/17/20 05:00 05:00 05:00 WBC 16.1 H RBC 3.71 L Hgb 10.5 L Hct 31.6 L MCV 85 MCH 28.4 MCHC 33.3 RDW 15.2 H Plt Count 334 Seg Neutrophils % Not Reportable Carbonic Acid 0.95 L HCO3/H2CO3 Ratio 30:1 ABG pH 7.57 H ABG pCO2 31.6 L ABG pO2 52.6 L ABG HCO3 28.6 H ABG O2 Saturation 92.0 L ABG Base Excess 6.7 FiO2 21% Sodium 132.6 L Potassium 2.7 L* Chloride 95 L Carbon Dioxide 28 Anion Gap 10 BUN 8 Creatinine 0.35 L Est GFR ( Amer) > 60 Glucose 128 H Calcium 8.1 L Phosphorus 1.3 L Magnesium 2.0 05/15/20 21:12 Tracheal Aspirate Gram Stain - Final 05/15/20 21:12 Tracheal Aspirate Sputum Culture - Final Staphylococcus Aureus Normal Maegan Absent 05/15/20 21:44 Lynn Catheter Urine Culture - Final Escherichia Coli 05/15/20 10:08 Throat Throat Culture - Final GREATLY REDUCED NORMAL MAEGAN 05/15/20 10:00 Blood Blood Culture (PCR) - Final Staphylococcus Species 05/15/20 05/15/20 05/15/20 09:20 15:08 15:57 CK-MB (CK-2) < 0.22 Troponin I < 0.012 Cancelled 0.025 NT-Pro-B Natriuret Pep 183 H Impressions: Abdomen X-Ray 05/15/20 15:11 IMPRESSION: Nasoenteric tube tip overlies proximal gastric body with side port just distal to GE junction. Chest X-Ray 05/17/20 05:30 IMPRESSION: IMPROVED AERATION. All labs, radiographs, diagnostic studies and EKGs were personally reviewed: Yes In addition, reports of radiographic and diagnostic studies were read: Yes Assessment and Plan - Diagnosis (1) Aspiration into lower respiratory tract Qualifiers: Encounter type: initial encounter Qualified Code(s): T17.800A - Unspecified foreign body in other parts of respiratory tract causing asphyxiation, initial encounter Is this a current diagnosis for this admission?: Yes Plan: Probably not a major aspiration. Enough to create a SIRS picture. However no infiltrate, fever or secretions. Not enough to call PNA or sepsis. (2) Tachycardia Is this a current diagnosis for this admission?: Yes Plan: Resolved (3) Dehydration Is this a current diagnosis for this admission?: Yes Plan: Resolved (4) COPD (chronic obstructive pulmonary disease) Qualifiers: COPD type: emphysema Emphysema type: centrilobular Qualified Code(s): J43.2 - Centrilobular emphysema Is this a current diagnosis for this admission?: Yes Plan: No wheezing BS diminished (5) SIRS (systemic inflammatory response syndrome) Is this a current diagnosis for this admission?: Yes Plan: As above (6) Hypoadrenalism Is this a current diagnosis for this admission?: Yes Plan: On stress steroids. Taper in a few days. Plan Summary: Plan to extubate. Keep NG for meds and feeding speech evaluation in AM if still stable. Critical Time Critical Time (minutes): 35 Level of Care: ICU Anticipated discharge: SNF Anticipated DC Timeframe: Other -: 1. The care of a critical patient is a dynamic process. This note is a uniforms sales representative synopsis but static in nature. The timeframe for treatments given in order is not necessarily the actual time these treatments may have been done. 2. This patient requires critical care secondary to ongoing requirements for therapy not offered or safe outside the critical care environment. Transfer to a lower level of care will result in altered life or limb morbidity and mortality. 3. Multidisciplinary rounds completed. 4. ABCDE bundle addressed.
[2020-05-17] MEDS ORDERED: FLUTICASONE/VILANTEROL 200-25 MCG/DOSE IH SCH (10:00)
[2020-05-17] MEDS: NORMAL SALINE 1000 ML 1,000 ML IV PRN ×2 (10:21→21:05)
[2020-05-17] MEDS: LEVETIRACETAM ORAL SOLN 500 MG/5 ML UDCUP NG SCH ×2 (10:27→21:04)
[2020-05-17] MEDS: CEFEPIME HCL 2 GM in DEXTROSE 5%-WATER 50 ML IV SCH ×2 (10:27→21:01)
[2020-05-17] MEDS: FAMOTIDINE INJ/PF 20 MG/2 ML SDV IV SCH ×2 (10:27→21:00)
[2020-05-17] MEDS: POTASSI CL 20 MEQ/50 ML RIDER 20 MEQ/50 ML RTUPB IV SCH ×2 (10:27→13:50)
[2020-05-17] MEDS ORDERED: SCOPOLAMINE HYDROBROMIDE 1.5 MG PATCH.TD72 TD SCH (15:45)
[2020-05-17] MEDS ORDERED: POTASSIUM CHLORIDE 20 MEQ PACKET NG SCH (18:45)
[2020-05-17] MEDS ORDERED: PHARMACY COMMUNICATION ORDER MC NR (18:45)
[2020-05-17] MEDS: RIVAROXABAN 10 MG TABLET NG SCH (21:00)
[2020-05-18] MEDS: GUAIFENESIN SYRP 200 MG/10 ML UDC NG SCH ×5 (00:43→23:26)
[2020-05-18 02:08] LABS: HEMATOCRIT 30.7 % (37.9-51.0); HEMOGLOBIN 10.1 g/dL (13.5-17.0); MEAN CORPUSCULAR HEMOGLOBIN 28.3 pg (27.0-33.4); MEAN CORPUSCULAR VOLUME 86 fl (80-97); PLATELET COUNT 392 10^3/uL (150-450); RED BLOOD COUNT 3.58 10^6/uL (4.35-5.55); RED CELL DISTRIBUTION WIDTH 15.7 % (11.5-14.0); WHITE BLOOD COUNT 11.8 10^3/uL (4.0-10.5)
[2020-05-18 02:24] LABS: ANION GAP 9 (5-19); BLOOD UREA NITROGEN 8 mg/dL (7-20); CALCIUM 8.2 mg/dL (8.4-10.2); CARBON DIOXIDE 28 mmol/L (22-30); CHLORIDE 101 mmol/L (98-107); GLUCOSE 126 mg/dL (75-110)
[2020-05-18 02:36] LABS: POTASSIUM 2.7 mmol/L (3.6-5.0)
[2020-05-18] MEDS: POTASSI CL 20 MEQ/50 ML RIDER 20 MEQ/50 ML RTUPB IV SCH ×6 (02:45→21:13)
[2020-05-18 02:46] LABS: ABSOLUTE LYMPHOCYTES# (MANUAL) 0.5 10^3/uL (0.5-4.7); ABSOLUTE MONOCYTES # (MANUAL) 0.1 10^3/uL (0.1-1.4); BASOPHILS % (MANUAL) 0 % (0-2); EOSINOPHILS % (MANUAL) 0 % (0-6); LYMPHOCYTES % (MANUAL) 4 % (13-45); MONOCYTES % (MANUAL) 1 % (3-13); SEGMENTED NEUTROPHILS % (MAN) 95 % (42-78); TOTAL CELLS COUNTED 100
[2020-05-18 02:47] LABS: ANISOCYTOSIS SLIGHT; OVALOCYTES 1+; PLATELET COMMENT ADEQUATE; POIKILOCYTOSIS SLIGHT; SCHISTOCYTES SLIGHT; TOXIC GRANULATION 1+
[2020-05-18] MEDS ORDERED: POTASSI CL 20 MEQ/50 ML RIDER 40 MEQ/100 ML RTUPB IV ONE (05:07)
[2020-05-18] MEDS: HYDROCORTISONE SOD SUCCINATE INJ/PF 100 MG/2 ML SDV IV SCH (05:30)
[2020-05-18] MEDS: CARBIDOPA/LEVODOPA 10-100 MG TABLET NG SCH ×3 (05:30→21:13)
[2020-05-18] MEDS: NORMAL SALINE 1000 ML 1,000 ML IV PRN (05:31)
[2020-05-18] MEDS: VANCOMYCIN HCL 1,000 MG in DEXTROSE 5%-WATER 250 ML IV SCH ×3 (06:55→23:26)
[2020-05-18] MEDS ORDERED: INFLUENZA QUAD (6MOS+) 2020-21 VAC 0.5 ML SYR IM ONE (08:00)
[2020-05-18] MEDS: FLUTICASONE/VILANTEROL 200-25 MCG/DOSE IH SCH (11:12)
[2020-05-18] MEDS: LEVETIRACETAM ORAL SOLN 500 MG/5 ML UDCUP NG SCH ×2 (11:13→21:14)
[2020-05-18] MEDS: UMECLIDINIUM BROMIDE 62.5 MCG/DOSE IH SCH (11:13)
[2020-05-18] MEDS: CEFTRIAXONE 1 GM/D5W RTU 1 GM/50 ML RTUPB IV SCH (11:13)
--- NOTE | 2020-05-18 11:49 | PDOC CRITICAL CARE PROG REPORT ---
General Date:: 05/18/20 ICU Day:: 4 Hospital Day:: 4 Resuscitation Status: Full Code Events in the past 12 to 24 Hours:: This 69-year-old male was admitted on 05/15/2020 from [facility] with acute hypoxemic respiratory failure, associated with hypotension. He was apparently initially placed on BiPAP but remained obtunded. Of note, the p heidi has sleep apnea, for which she is supposed to use BiPAP every night. 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 05/18: Remains extubated. On 2 LPM via nasal cannula. Last bedside swallow evaluation yesterday. Tolerated BiPAP support overnight. Only on cefepime and vancomycin for E. coli in the urine and multiple species of Staphylococcus in the blood (MSSA, MRSA and coag negative staph). Review of systems relevant to events:: Pulmonary, neurologic. Reason for ICU Addmission:: Acute hypoxemic respiratory failure - Medications: Medications reviewed and adjusted accordingly: Yes Physical Exam Vital Signs: Temp Pulse Resp BP Pulse Ox 98.4 F 78 34 H 132/67 H 100 05/18/20 08:47 05/18/20 07:00 05/18/20 06:03 05/18/20 06:03 05/18/20 08:00 Intake & Output 05/17/20 05/18/20 05/19/20 06:59 06:59 06:59 Intake Total 4080 3513 320 Output Total 2350 2565 390 Balance 1730 948 -70 Weight 85.8 kg 84.7 kg Weight/Height Weight 84.7 kg Height 1.7 m General appearance: PRESENT: no acute distress, well-developed, well-nourished Head exam: PRESENT: atraumatic, normocephalic Eye exam: PRESENT: conjunctiva pink, EOMI, PERRLA. ABSENT: scleral icterus Mouth exam: PRESENT: moist, tongue midline Neck exam: ABSENT: carotid bruit, JVD, lymphadenopathy, thyromegaly Respiratory exam: PRESENT: clear to auscultation alfredo. ABSENT: rales, rhonchi, wheezes Cardiovascular exam: PRESENT: RRR. ABSENT: diastolic murmur, rubs, systolic murmur GI/Abdominal exam: PRESENT: normal bowel sounds, soft. ABSENT: distended, guarding, mass, organolmegaly, rebound, tenderness Gentrourinary exam: PRESENT: indwelling catheter Extremities exam: PRESENT: full ROM, pedal edema. ABSENT: calf tenderness, clubbing Neurological exam: PRESENT: alert, awake, oriented to person, oriented to place, oriented to time, oriented to situation, CN II-XII grossly intact, other - Tension tremor. No rest tremor. Cogwheel rigidity. Psychiatric exam: PRESENT: appropriate affect, normal mood. ABSENT: homicidal ideation, suicidal ideation Skin exam: PRESENT: dry, intact, warm, other - Gottron's sign. Facial erythema. Shawl sign. Periungual erythema.. ABSENT: cyanosis Tubes/Lines: PRESENT: Central Line - Right IJ, Arterial Catheter Laboratory/Radiographs Laboratory Results: 05/18/20 01:30 05/18/20 01:30 05/17/20 05/18/20 05/18/20 17:22 01:30 01:30 WBC 11.8 H RBC 3.58 L Hgb 10.1 L Hct 30.7 L MCV 86 MCH 28.3 MCHC 33.0 RDW 15.7 H Plt Count 392 Seg Neutrophils % Not Reportable Sodium 138.0 Potassium 2.7 L* 2.7 L* Chloride 101 Carbon Dioxide 28 Anion Gap 9 BUN 8 Creatinine 0.40 L Est GFR ( Amer) > 60 Glucose 126 H Calcium 8.2 L 05/15/20 21:12 Blood Blood Culture (PCR) - Final Staphylococcus Aureus 05/15/20 10:00 Blood Blood Culture (PCR) - Final Staphylococcus Species 05/15/20 21:12 Tracheal Aspirate Gram Stain - Final 05/15/20 21:12 Tracheal Aspirate Sputum Culture - Final Staphylococcus Aureus Normal Maegan Absent 05/15/20 21:44 Lynn Catheter Urine Culture - Final Escherichia Coli 05/15/20 10:08 Throat Throat Culture - Final GREATLY REDUCED NORMAL MAEGAN 05/15/20 05/15/20 05/15/20 09:20 15:08 15:57 CK-MB (CK-2) < 0.22 Troponin I < 0.012 Cancelled 0.025 NT-Pro-B Natriuret Pep 183 H Impressions: Abdomen X-Ray 05/15/20 15:11 IMPRESSION: Nasoenteric tube tip overlies proximal gastric body with side port just distal to GE junction. Chest X-Ray 05/17/20 05:30 IMPRESSION: IMPROVED AERATION. All labs, radiographs, diagnostic studies and EKGs were personally reviewed: Yes In addition, reports of radiographic and diagnostic studies were read: Yes Assessment and Plan - Diagnosis (1) Staphylococcal pneumonia Is this a current diagnosis for this admission?: Yes Plan: He is currently on Rocephin and vancomycin, pending final culture results. (2) Escherichia coli urinary tract infection Is this a current diagnosis for this admission?: Yes (3) Aspiration into lower respiratory tract Qualifiers: Encounter type: initial encounter Qualified Code(s): T17.800A - Unspecified foreign body in other parts of respiratory tract causing asphyxiation, initial encounter Is this a current diagnosis for this admission?: Yes (4) Polymyositis Is this a current diagnosis for this admission?: Yes Plan: * Physical findings suspicious for dermatomyositis. * The patient reports chronic steroid therapy (prednisone 40 mg p.o. daily for over 1 year). * Stop Solu-Cortef. Start Solu-Medrol 80 mg IV daily. His steroid dose may be changed to prednisone 80 mg p.o. daily prior to discharge; however, his dose should be decreased slowly over the course of a year or so. * Change Pepcid to Protonix. (5) COPD (chronic obstructive pulmonary disease) Qualifiers: COPD type: emphysema Emphysema type: centrilobular Qualified Code(s): J43.2 - Centrilobular emphysema Is this a current diagnosis for this admission?: Yes Plan: * Continue bronchodilator therapy. * Add Pulmicort. (6) Sepsis Qualifiers: Sepsis type: methicillin susceptible Staphylococcus aureus Sepsis acute organ dysfunction status: with acute organ dysfunction Severe sepsis acute organ dysfunction type: acute respiratory failure Acute respiratory failure type: with hypoxia Severe sepsis shock status: with septic shock Qualified Code(s): A41.01 - Sepsis due to Methicillin susceptible Staphylococcus aureus; R65.21 - Severe sepsis with septic shock; J96.01 - Acute respiratory failure with hypoxia Is this a current diagnosis for this admission?: Yes Plan: * Clinically improving. * Continue antibiotic therapy. * Remove arterial line. * Follow-up culture results. Plan Summary: Okay to transfer to telemetry from pulmonary standpoint. Critical Time Critical Time (minutes): 60 Level of Care: ICU -: 1. The care of a critical patient is a dynamic process. This note is a support representative synopsis but static in nature. The timeframe for treatments given in order is not necessarily the actual time these treatments may have been done. 2. This patient requires critical care secondary to ongoing requirements for therapy not offered or safe outside the critical care environment. Transfer to a lower level of care will result in altered life or limb morbidity and mor tality. 3. Multidisciplinary rounds completed. 4. ABCDE bundle addressed.
[2020-05-18] MEDS: BUDESONIDE NEB 0.25 MG/2 ML AMPUL NEB SCH ×2 (12:09→19:44)
[2020-05-18 12:43] LABS: ARTERIAL BLOOD BASE EXCESS 3.4 mmol/L; ARTERIAL BLOOD HCO3 26.2 mmol/L (20-24); ARTERIAL BLOOD O2 SATURATION 93.6 % (94-98); ARTERIAL BLOOD PCO2 33.3 mmHg (35-45); ARTERIAL BLOOD PH 7.51 (7.35-7.45); ARTERIAL BLOOD PO2 60.7 mmHg (80-100); ARTERIAL BLOOD TOTAL CO2 27.2 mmol/L (23-27)
[2020-05-18 12:46] LABS: ARTERIAL BLOOD FIO2 2L
[2020-05-18] MEDS: METHYLPREDNISOLONE INJ 125 MG/2 ML SDV IV SCH (13:01)
[2020-05-18] MEDS: FAMOTIDINE INJ/PF 20 MG/2 ML SDV IV SCH (14:42)
[2020-05-18] MEDS: PANTOPRAZOLE SODIUM 40 MG PACKET.DR NG SCH (15:01)
[2020-05-18 15:09] LABS: POTASSIUM 3.3 mmol/L (3.6-5.0)
[2020-05-18] MEDS ORDERED: POTASSIUM CHLORIDE 20 MEQ PACKET PO ONE (18:00)
[2020-05-18] MEDS: IPRATROPIUM/ALBUTEROL 0.5-2.5 MG/3 ML AMPUL NEB PRN (19:44)
[2020-05-18] MEDS: RIVAROXABAN 10 MG TABLET NG SCH (21:13)
[2020-05-18] MEDS ORDERED: FAMOTIDINE 20 MG TABLET NG SCH (22:00)
[2020-05-19] MEDS: CARBIDOPA/LEVODOPA 10-100 MG TABLET NG SCH ×3 (05:27→22:27)
[2020-05-19] MEDS: GUAIFENESIN SYRP 200 MG/10 ML UDC NG SCH ×3 (05:27→17:42)
[2020-05-19] MEDS ORDERED: PANTOPRAZOLE SODIUM 40 MG TABLET.DR PO SCH (06:00)
[2020-05-19] MEDS ORDERED: PHARMACY COMMUNICATION ORDER MC ONE (06:30)
[2020-05-19] MEDS ORDERED: INFLUENZA QUAD (6MOS+) 2020-21 VAC 0.5 ML SYR IM ONE (08:00)
[2020-05-19 08:07] LABS: VANCOMYCIN,TROUGH 18.1 ug/mL (5.0-20.0)
[2020-05-19] MEDS: VANCOMYCIN HCL 1,000 MG in DEXTROSE 5%-WATER 250 ML IV SCH ×3 (08:30→22:26)
[2020-05-19] MEDS: NORMAL SALINE 1000 ML 1,000 ML IV PRN (08:32)
[2020-05-19] MEDS: UMECLIDINIUM BROMIDE 62.5 MCG/DOSE IH SCH (09:38)
[2020-05-19] MEDS: FLUTICASONE/VILANTEROL 200-25 MCG/DOSE IH SCH (09:38)
[2020-05-19] MEDS: DULOXETINE HCL 30 MG CAPSULE.DR PO SCH (09:39)
[2020-05-19] MEDS: LEVETIRACETAM ORAL SOLN 500 MG/5 ML UDCUP NG SCH ×2 (09:39→22:27)
[2020-05-19] MEDS: CEFTRIAXONE 1 GM/D5W RTU 1 GM/50 ML RTUPB IV SCH (09:41)
[2020-05-19] MEDS: METHYLPREDNISOLONE INJ 125 MG/2 ML SDV IV SCH (09:42)
[2020-05-19] MEDS: BUDESONIDE NEB 0.25 MG/2 ML AMPUL NEB SCH ×2 (09:43→20:23)
[2020-05-19] MEDS: PANTOPRAZOLE SODIUM 40 MG PACKET.DR NG SCH (09:43)
[2020-05-19] MEDS: IPRATROPIUM/ALBUTEROL 0.5-2.5 MG/3 ML AMPUL NEB PRN ×2 (09:43→20:24)
[2020-05-19 12:29] LABS: ANION GAP 7 (5-19); BLOOD UREA NITROGEN 8 mg/dL (7-20); CARBON DIOXIDE 27 mmol/L (22-30); CHLORIDE 107 mmol/L (98-107); GLUCOSE 105 mg/dL (75-110); POTASSIUM 3.2 mmol/L (3.6-5.0)
--- NOTE | 2020-05-19 13:02 | Progress Note ---
Provider Note Provider Note: ID Note- I reviewed the patient's chart and personally examined the CXR. Patient has MRSA in blood and MSSA in sputum cultures. CXR is abnormal. Recommend treating with vancomycin to achieve trough level of 10-15 mcg/ml. Patient should have repeat blood cultures to document clearance of the bacteremia. He should have a TTE (if this has not been done) to rule out endocarditis. If TTE is negative, then patient should have a minimum of 2 weeks of IV vancomycin starting from the first negative blood culture. Recommend checking patient for back pain. If he complains of back pain or has any weakness in upper or lower extremities, then he should have an MRI of the spine (confined to area of localized pain). Please contact me if there are questions. Brijesh Galleogs MD Pager: [phone]
[2020-05-19] MEDS ORDERED: POTASSI CL 20 MEQ/50 ML RIDER 20 MEQ/50 ML RTUPB IV ONE (18:28)
[2020-05-19] MEDS: POTASSI CL 20 MEQ/50 ML RIDER 20 MEQ/50 ML RTUPB IV SCH ×2 (18:32→22:26)
--- NOTE | 2020-05-19 18:40 | RADIOLOGY REPORT (SQ) ---
EXAM DESCRIPTION: CHEST SINGLE VIEW IMAGES COMPLETED DATE/TIME: 05/19/2020 6:15 pm REASON FOR STUDY: r/o chf vs pneumonia COMPARISON: 05/17/2020 TECHNIQUE: Single frontal radiographic view of the chest acquired. NUMBER OF VIEWS: One view. LIMITATIONS: None. FINDINGS: LUNGS AND PLEURA: No pneumothorax. Similar interstitial markings. No consolidation or pl eural effusion. MEDIASTINUM AND HILAR STRUCTURES: Stable. HEART AND VASCULAR STRUCTURES: Stable. BONES: No acute findings. HARDWARE: None in the chest. OTHER: No other significant finding. IMPRESSION: NO ACUTE FINDINGS. TECHNICAL DOCUMENTATION: JOB ID: [id number] [place]-72 2010 [employer]- All Rights Reserved Reading location - IP/workstation name: [email or web address]
[2020-05-19] MEDS: RIVAROXABAN 10 MG TABLET NG SCH (22:26)
[2020-05-20] MEDS: GUAIFENESIN SYRP 200 MG/10 ML UDC NG SCH ×4 (00:33→17:23)
[2020-05-20] MEDS: POTASSI CL 20 MEQ/50 ML RIDER 20 MEQ/50 ML RTUPB IV SCH ×6 (00:33→17:57)
[2020-05-20] MEDS: IPRATROPIUM/ALBUTEROL 0.5-2.5 MG/3 ML AMPUL NEB SCH ×5 (01:14→19:41)
[2020-05-20] MEDS: CARBIDOPA/LEVODOPA 10-100 MG TABLET NG SCH (05:32)
--- NOTE | 2020-05-20 07:59 | PDOC PROGRESS REPORT ---
Subjective Progress Note for:: 05/19/20 Subjective:: 05/19/2020: Matt Dalton is a 69 year old male with PMHx significant for obesity, CHF, sleep apnea, PNA, polymyositis, possibly parkinsonism, and COPD who presented on 05/15/2020 from [facility] for SOB. He was found to have acute hypoxemic respiratory failure subsequntially admitted to the ICU for further care and evaluation. Upon evaluation he was found to be an aspiration risk and requiring itubation. In the ICU an endotracheal tube, central line and arterial line were placed. Cefepime and Vancomycin were started for E. Coli in the urine and MRSA in the blood. He had an overall uneventful course in the ICU and was extubated and transferred to the hospitalist service on 05/18/2020. Previous records from [facility] were reviewed. Patient was admitted to the [facility] director service on 04/13/20 for AMS and acute respiratory failure r/t pneumonia requiring intubation with extubation on 04/16/20 and inevitably discharged on 04/21/2020. Patient seen on afternoon rounds. He is sitting upright in bed, resting comfortably. He is on 2L NC. He reports sore throat and lost voice, suspect secondary to recent intubation. C/o occasional cough, but is otherwise feeling well and provides no complaints. Denies fever, chills, CP, palpitaitons, SOB, abd pain, NVD. Patient is a resident at [facility], facility has been contacted requesting records. Reason For Visit: UTI, COPD, ACUTE RESPIRATORY FILURE, GENERALIZED Physical Exam Vital Signs: Temp Pulse Resp BP Pulse Ox 97.4 F 78 20 121/64 98 05/19/20 16:15 05/20/20 02:06 05/20/20 02:06 05/19/20 16:15 05/20/20 00:16 Intake & Output 05/18/20 05/19/20 05/20/20 06:59 06:59 06:59 Intake Total 3513 2320 3200 Output Total 2565 1765 3000 Balance 948 555 200 Weight 84.7 kg 90.1 kg 81.5 kg General appearance: PRESENT: cooperative, mild distress, obese Head exam: PRESENT: atraumatic, normocephalic Eye exam: PRESENT: conjunctiva pink, EOMI, PERRLA. ABSENT: scleral icterus Mouth exam: PRESENT: dry mucosa, tongue midline Throat exam: PRESENT: other - Hoarse voice Neck exam: PRESENT: full ROM. ABSENT: JVD, lymphadenopathy, tenderness Respiratory exam: PRESENT: rhonchi - in all lung nolasco. Patien was unable to cough or take a deep breath to clear airway, other - Supplemental O2 via NC Cardiovascular exam: PRESENT: RRR, +S1, +S2. ABSENT: diastolic murmur, systolic murmur GI/Abdominal exam: PRESENT: normal bowel sounds, soft. ABSENT: ascites, distended, tenderness Gentrourinary exam: PRESENT: indwelling catheter Extremities exam: PRESENT: other - Limited mobility, bedbound/total care at baseline. ABSENT: calf tenderness, full ROM, pedal edema Musculoskeletal exam: ABSENT: ambulatory, deformity, dislocation Neurological exam: PRESENT: alert, awake, oriented to person, oriented to place, oriented to time, motor sensory deficit Psychiatric exam: PRESENT: appropriate affect, normal mood Skin exam: PRESENT: dry, other - Heliotropic rash.. ABSENT: rash Results Laboratory Results: 05/18/20 01:30 05/19/20 05:15 05/19/20 05/19/20 05:15 05:15 Sodium 140.9 Cancelled Potassium 3.2 L Cancelled Chloride 107 Cancelled Carbon Dioxide 27 Cancelled Anion Gap 7 Cancelled BUN 8 Cancelled Creatinine 0.41 L Cancelled Est GFR ( Amer) > 60 Cancelled Est GFR (Non-Af Amer) Cancelled Glucose 105 Cancelled Calcium 8.0 L Cancelled Magnesium 2.0 05/15/20 21:12 Blood Blood Culture (PCR) - Final Staphylococcus Aureus 05/15/20 05/15/20 05/15/20 09:20 15:08 15:57 CK-MB (CK-2) < 0.22 Troponin I < 0.012 Cancelled 0.025 NT-Pro-B Natriuret Pep 183 H Impressions: Abdomen X-Ray 05/15/20 15:11 IMPRESSION: Nasoenteric tube tip overlies proximal gastric body with side port just distal to GE junction. Chest X-Ray 05/19/20 00:00 IMPRESSION: NO ACUTE FINDINGS. Assessment and Plan - Diagnosis (1) Bacteremia due to methicillin resistant Staphylococcus aureus Is this a current diagnosis for this admission?: Yes Plan: - Etiology unknown - Consulted ID. MRSA in blood (05/15/2020) - Currently on Vanc and Rocephin - Vanc trough with target level 10-15. - Repeat BC pending - TTE ordered - If negative continue IV vanc x2 weeks at least (2) COPD (chronic obstructive pulmonary disease) Qualifiers: COPD type: emphysema Emphysema type: centrilobular Qualified Code(s): J43.2 - Centrilobular emphysema Is this a current diagnosis for this admission?: Yes Plan: - Continue bronchodilator therapy. - Add Pulmicort. - Continue with O2 therapy - Continue to monitor (3) Escherichia coli urinary tract infection Is this a current diagnosis for this admission?: Yes Plan: - UC + E. Coli 05/15/2020 - Rocephin therapy day 5 - Pt with chronic urinary catheter - Consider removal and placement (4) Polymyositis Is this a current diagnosis for this admission?: Yes Plan: - Physical findings suspicious for dermatomyositis. - The patient reports chronic steroid therapy (prednisone 40 mg p.o. daily for over 1 year). - Continue Solu-Medrol 80 mg IV daily. - Plan to change to prednisone 80 mg p.o. daily prior to discharge - Recommend slow taper of dose over the course of a year or so. - Continue on Protonix. (5) Staphylococcal pneumonia Is this a current diagnosis for this admission?: Yes Plan: - CXR abnormal - MSSA sputum culture 05/15/20 - Currently on Rocephin and vancomycin (6) Sepsis Qualifiers: Sepsis type: methicillin susceptible Staphylococcus aureus Sepsis acute organ dysfunction status: with acute organ dysfunction Severe sepsis acute organ dysfunction type: acute respiratory failure Acute respiratory failure type: with hypoxia Severe sepsis shock status: with septic shock Qualified Code(s): A41.01 - Sepsis due to Methicillin susceptible Staphylococcus aureus; R65.21 - Severe sepsis with septic shock; J96.01 - Acute respiratory failure with hypoxia Is this a current diagnosis for this admission?: Yes Plan: - Improved - Continue antibiotic therapy. - Arterial line removed. Central line removed. Two peripheral IVs placed. - Follow-up culture pending (7) Hoarse voice quality Is this a current diagnosis for this admission?: Yes Plan: - Hoarse voice on presentation - Chronic vs secondary to recent intubation - Records from [facility] requested - Records from [facility] reviewed noting hoarse voice following previous intubation as well - Remain unaware of baseline (8) Aspiration into lower respiratory tract Qualifiers: Encounter type: initial encounter Qualified Code(s): T17.800A - Unspecified foreign body in other parts of respiratory tract causing asphyxiation, initial encounter Is this a current diagnosis for this admission?: Yes Plan: - pt historically bedbound at nursing facility - probably not a major aspiration; - CXR reviewed, no infiltrate, fever or secretions. Not enough to call PNA or sepsis. - Time Time Spent with patient: 15-24 minutes Medications reviewed and adjusted accordingly: Yes Anticipated Discharge Disposition: Intermediate Facility Anticipated Discharge Timeframe: within 48 hours
[2020-05-20] MEDS: BUDESONIDE NEB 0.25 MG/2 ML AMPUL NEB SCH ×2 (08:15→19:41)
[2020-05-20] MEDS: VANCOMYCIN HCL 1,000 MG in DEXTROSE 5%-WATER 250 ML IV SCH ×3 (08:31→22:28)
[2020-05-20 09:17] LABS: HEMATOCRIT 33.2 % (37.9-51.0); HEMOGLOBIN 10.9 g/dL (13.5-17.0); MEAN CORPUSCULAR HEMOGLOBIN 27.9 pg (27.0-33.4); MEAN CORPUSCULAR HGB CONC 32.7 g/dL (32.0-36.0); MEAN CORPUSCULAR VOLUME 86 fl (80-97); PLATELET COUNT 447 10^3/uL (150-450); RED BLOOD COUNT 3.89 10^6/uL (4.35-5.55); RED CELL DISTRIBUTION WIDTH 15.1 % (11.5-14.0); WHITE BLOOD COUNT 9.3 10^3/uL (4.0-10.5)
[2020-05-20 09:51] LABS: ALBUMIN 3.1 g/dL (3.5-5.0); ALKALINE PHOSPHATASE 55 U/L (38-126); ANION GAP 7 (5-19); ASPARTATE AMINO TRANSFERASE 23 U/L (17-59); BILIRUBIN,DIRECT 0.3 mg/dL (0.0-0.4); BILIRUBIN,TOTAL 0.5 mg/dL (0.2-1.3); BLOOD UREA NITROGEN 8 mg/dL (7-20); CALCIUM 8.3 mg/dL (8.4-10.2); CARBON DIOXIDE 29 mmol/L (22-30); CHLORIDE 106 mmol/L (98-107); GLUCOSE 87 mg/dL (75-110); POTASSIUM 3.4 mmol/L (3.6-5.0); TOTAL PROTEIN 6.4 g/dL (6.3-8.2)
[2020-05-20] MEDS: DULOXETINE HCL 30 MG CAPSULE.DR PO SCH (10:07)
[2020-05-20] MEDS: PREDNISONE 20 MG TABLET PO SCH (10:07)
[2020-05-20] MEDS: CARBIDOPA/LEVODOPA 10-100 MG TABLET PO SCH ×3 (10:07→17:33)
[2020-05-20] MEDS: LEVETIRACETAM ORAL SOLN 500 MG/5 ML UDCUP PO SCH ×2 (10:07→22:29)
[2020-05-20] MEDS: PANTOPRAZOLE SODIUM 40 MG PACKET.DR NG SCH (10:08)
[2020-05-20] MEDS: FLUTICASONE/VILANTEROL 200-25 MCG/DOSE IH SCH (10:08)
[2020-05-20] MEDS: CEFTRIAXONE 1 GM/D5W RTU 1 GM/50 ML RTUPB IV SCH (10:08)
[2020-05-20] MEDS: UMECLIDINIUM BROMIDE 62.5 MCG/DOSE IH SCH (10:09)
--- NOTE | 2020-05-20 13:02 | PDOC PROGRESS REPORT ---
<MEHRDAD BAIRD - Last Filed: 05/20/20 13:57> Subjective Progress Note for:: 05/20/20 Subjective:: 05/19/2020: Matt Dalton is a 69 year old male with PMHx significant for obesity, CHF, sleep apnea, PNA, polymyositis, possibly parkinsonism, and COPD who presented on 05/15/2020 from [facility] for SOB. He was found to have acute hypoxemic respiratory failure subsequntially admitted to the ICU for further care and evaluation. Upon evaluation he was found to be an aspira tion risk and requiring itubation. In the ICU an endotracheal tube, central line and arterial line were placed. Cefepime and Vancomycin were started for E. Coli in the urine and MRSA in the blood. He had an overall uneventful course in the ICU and was extubated and transferred to the hospitalist service on 05/18/2020. Previous records from [facility] were reviewed. Patient was admitted to the hygiene assistant service on 04/13/20 for AMS and acute respiratory failure r/t pneumonia requiring intubation with extubation on 04/16/20 and inevitably discharged on 04/21/2020. Patient seen on afternoon rounds. He is sitting upright in bed, resting comfortably. He is on 2L NC. He reports sore throat and lost voice, suspect secondary to recent intubation. C/o occasional cough, but is otherwise feeling well and provides no complaints. Denies fever, chills, CP, palpitaitons, SOB, abd pain, NVD. Patient is a resident at [facility], facility has been contacted requesting records. 05/20/2020: Patient seen on morning rounds. Resting in bed comfortably. Cough, sore throat and hoarse voice improved from previous. Denies fever, chills, CP, palpitations, SOB, abd pain, NVD. Discussed case with pt's nurse. Per nurse pt had catheter in place at time of admission, catheter was changed during his ICU stay. Reason For Visit: UTI, COPD, ACUTE RESPIRATORY FILURE, GENERALIZED Physical Exam Vital Signs: Temp Pulse Resp BP Pulse Ox 97.4 F 85 21 H 133/67 H 95 05/20/20 08:58 05/20/20 08:15 05/20/20 08:15 05/20/20 08:00 05/20/20 08:15 Intake & Output 05/19/20 05/20/20 05/21/20 06:59 06:59 06:59 Intake Total 2320 3200 300 Output Total 1765 3000 2150 Balance 555 200 -1850 Weight 90.1 kg 81.5 kg General appearance: PRESENT: no acute distress, cooperative, well-developed Head exam: PRESENT: atraumatic, normocephalic Eye exam: PRESENT: conjunctiva pink, EOMI, PERRLA. ABSENT: scleral icterus Mouth exam: PRESENT: dry mucosa, tongue midline, other - Hoarse voice, improved from yesterday Neck exam: PRESENT: full ROM. ABSENT: JVD, lymphadenopathy, tenderness Respiratory exam: PRESENT: rhonchi - across all lung nolasco, unable to clear with cough, tachypnea Cardiovascular exam: PRESENT: RRR, +S1, +S2. ABSENT: diastolic murmur, systolic murmur GI/Abdominal exam: PRESENT: normal bowel sounds, soft, other - Diastasis worse when lying supine. ABSENT: ascites, distended, firm, guarding, tenderness Gentrourinary exam: PRESENT: indwelling catheter Extremities exam: ABSENT: full ROM - bedbound at baseline, pedal edema, tenderness Musculoskeletal exam: ABSENT: ambulatory - bedbound at baseline, deformity, dislocation, full ROM, tenderness Neurological exam: PRESENT: alert, awake, oriented to person, oriented to place, oriented to time, oriented to situation. ABSENT: altered Psychiatric exam: PRESENT: appropriate affect, normal mood Skin exam: PRESENT: dry, erythema - Unstagable chronic sacral ulcer activly bleeding on exam, there is fecal matter noted on wound bed., other - Onychomycosis changes to nails. Previous skin graft medial malleolus, left.. ABSENT: cyanosis, rash Results Laboratory Results: 05/20/20 08:40 05/20/20 08:40 05/20/20 05/20/20 08:40 08:40 WBC 9.3 RBC 3.89 L Hgb 10.9 L Hct 33.2 L MCV 86 MCH 27.9 MCHC 32.7 RDW 15.1 H Plt Count 447 Sodium 142.1 Potassium 3.4 L Chloride 106 Carbon Dioxide 29 Anion Gap 7 BUN 8 Creatinine 0.36 L Est GFR ( Amer) > 60 Glucose 87 Calcium 8.3 L Magnesium 1.9 Total Bilirubin 0.5 AST 23 Alkaline Phosphatase 55 Total Protein 6.4 Albumin 3.1 L 05/15/20 09:20 Blood Blood Culture - Final NO GROWTH IN 5 DAYS 05/15/20 21:12 Blood Blood Culture (PCR) - Final Staphylococcus Aureus 05/15/20 05/15/20 05/15/20 09:20 15:08 15:57 CK-MB (CK-2) < 0.22 Troponin I < 0.012 Cancelled 0.025 NT-Pro-B Natriuret Pep 183 H Impressions: Abdomen X-Ray 05/15/20 15:11 IMPRESSION: Nasoenteric tube tip overlies proximal gastric body with side port just distal to GE junction. Chest X-Ray 05/19/20 00:00 IMPRESSION: NO ACUTE FINDINGS. Assessment and Plan - Diagnosis (1) Bacteremia due to methicillin resistant Staphylococcus aureus Is this a current diagnosis for this admission?: Yes Plan: - Etiology unknown; possibly secondary to chronic sacral ulcer - Consulted ID. MRSA in blood (05/15/2020) - Currently on Vanc and Rocephin - Vanc with current trough level 18. - Repeat BC pending; at 48hours of -BC order PICC placement - TTE ordered - If negative continue IV vanc x2 weeks at least (2) Escherichia coli urinary tract infection Is this a current diagnosis for this admission?: Yes Plan: - UC + E. Coli 05/15/2020 - Rocephin therapy day 6 - Pt with chronic urinary catheter - Per nurse pt chronic cath; catheter was changed in the ICU; no further attention needed (3) Polymyositis Is this a current diagnosis for this admission?: Yes Plan: - Physical findings suspicious for dermatomyositis. - The patient reports chronic steroid therapy (prednisone 40 mg p.o. daily for over 1 year). - Previously on Solu-Medrol 80 mg IV daily. - Started on prednisone 80 mg p.o; will d/c at this current daily dose - Recommend slow taper of dose over the course of a year or so. - Continue on Protonix. (4) Sepsis Qualifiers: Sepsis type: methicillin susceptible Staphylococcus aureus Sepsis acute organ dysfunction status: with acute organ dysfunction Severe sepsis acute organ dysfunction type: acute respiratory failure Acute respiratory failure type: with hypoxia Severe sepsis shock status: with septic shock Qualified Code(s): A41.01 - Sepsis due to Methicillin susceptible Staphylococcus aureus; R65.21 - Severe sepsis with septic shock; J96.01 - Acute respiratory failure with hypoxia Is this a current diagnosis for this admission?: Yes Plan: - Improved - Continue antibiotic therapy. - Arterial line removed. Central line removed. Two peripheral IVs placed. - Follow-up culture pending (5) Unstageable pressure ulcer of sacral region Is this a current diagnosis for this admission?: Yes Plan: - Unstageable chronic pressure ulcer of sacral region with actively bleeding b ase and feces in wound bed. - Possible source of infection; CT lumbar and sacrum ordered, pending - Allevyn dressing removed, wound cleaned and Allevyn dressing reapplied - Wound care every other day with dressing changes (6) Hoarse voice quality Is this a current diagnosis for this admission?: Yes Plan: - Hoarse voice on presentation; improved today - Chronic vs secondary to recent intubation - Records from [facility] requested - Records from [facility] reviewed noting hoarse voice following previous intubation as well - Remain unaware of baseline (7) Aspiration into lower respiratory tract Qualifiers: Encounter type: initial encounter Qualified Code(s): T17.800A - Unspecified foreign body in other parts of respiratory tract causing asphyxiation, initial encounter Is this a current diagnosis for this admission?: Yes Plan: - Pt seen by speech therapy. - Significant risk of aspiration on swallow study. - Recommends barium swallow for further evaluation - Results pending (8) Staphylococcal pneumonia Is this a current diagnosis for this admission?: Yes Plan: - CXR abnormal - MSSA sputum culture 05/15/20 - Currently on Rocephin and vancomycin (9) COPD (chronic obstructive pulmonary disease) Qualifiers: COPD type: emphysema Emphysema type: centrilobular Qualified Code(s): J43.2 - Centrilobular emphysema Is this a current diagnosis for this admission?: Yes Plan: - Continue bronchodilator therapy. - Add Pulmicort. - Continue with O2 therapy - Continue to monitor - Time Time Spent with patient: 25-34 minutes Medications reviewed and adjusted accordingly: Yes <VIVI WHITAKER - Last Filed: 05/20/20 18:01> Subjective Reason For Visit: UTI, COPD, ACUTE RESPIRATORY FILURE, GENERALIZED Physical Exam Vital Signs: Temp Pulse Resp BP Pulse Ox 98.2 F 92 24 H 150/84 H 93 05/20/20 16:08 05/20/20 16:08 05/20/20 16:08 05/20/20 16:08 05/20/20 16:08 Intake & Output 05/19/20 05/20/20 05/21/20 06:59 06:59 06:59 Intake Total 2320 3200 450 Output Total 1765 3000 3350 Balance 555 200 -2900 Weight 90.1 kg 81.5 kg Results Laboratory Results: 05/20/20 08:40 05/20/20 08:40 05/20/20 05/20/20 08:40 08:40 WBC 9.3 RBC 3.89 L Hgb 10.9 L Hct 33.2 L MCV 86 MCH 27.9 MCHC 32.7 RDW 15.1 H Plt Count 447 Sodium 142.1 Potassium 3.4 L Chloride 106 Carbon Dioxide 29 Anion Gap 7 BUN 8 Creatinine 0.36 L Est GFR ( Amer) > 60 Glucose 87 Calcium 8.3 L Magnesium 1.9 Total Bilirubin 0.5 AST 23 Alkaline Phosphatase 55 Total Protein 6.4 Albumin 3.1 L 05/15/20 09:20 Blood Blood Culture - Final NO GROWTH IN 5 DAYS 05/15/20 05/15/20 05/15/20 09:20 15:08 15:57 CK-MB (CK-2) < 0.22 Troponin I < 0.012 Cancelled 0.025 NT-Pro-B Natriuret Pep 183 H Impressions: Abdomen X-Ray 05/15/20 15:11 IMPRESSION: Nasoenteric tube tip overlies proximal gastric body with side port just distal to GE junction. Chest X-Ray 05/19/20 00:00 IMPRESSION: NO ACUTE FINDINGS. Lumbar Spine CT 05/20/20 00:00 IMPRESSION: Degenerative disc disease, spondylosis, mild concentric disc bulging as described. No significant stenoses. No evidence of sacral osteomyelitis. Assessment and Plan - Diagnosis (1) Catheter-associated urinary tract infection Qualifiers: Indwelling urinary catheter type: indwelling urethral catheter Encounter type: subsequent encounter Qualified Code(s): T83.511D - Infection and inflammatory reaction due to indwelling urethral catheter, subsequent encounter; N39.0 - Urinary tract infection, site not specified Is this a current diagnosis for this admission?: Yes (2) Aspiration into lower respiratory tract Qualifiers: Encounter type: initial encounter Qualified Code(s): T17.800A - Unspecified foreign body in other parts of respiratory tract causing asphyxiation, initial encounter Is this a current diagnosis for this admission?: Yes (3) Bacteremia due to methicillin resistant Staphylococcus aureus Is this a current diagnosis for this admission?: Yes (4) COPD (chronic obstructive pulmonary disease) Qualifiers: COPD type: emphysema Emphysema type: centrilobular Qualified Code(s): J43.2 - Centrilobular emphysema Is this a current diagnosis for this admission?: Yes (5) Dehydration Is this a current diagnosis for this admission?: Yes (6) Escherichia coli urinary tract infection Is this a current diagnosis for this admission?: Yes (8) Hoarse voice quality Is this a current diagnosis for this admission?: Yes (9) Hypoadrenalism Is this a current diagnosis for this admission?: Yes (10) Sacral decubitus ulcer Qualifiers: Pressure injury stage: stage 3 Qualified Code(s): L89.153 - Pressure ulcer of sacral region, stage 3 Is this a current diagnosis for this admission?: Yes (11) Staphylococcal pneumonia Is this a current diagnosis for this admission?: Yes (12) Unstageable pressure ulcer of sacral region Is this a current diagnosis for this admission?: Yes (13) Acute kidney injury Is this a current diagnosis for this admission?: Yes (14) Acute metabolic encephalopathy Is this a current diagnosis for this admission?: Yes (15) Autoimmune disease Is this a current diagnosis for this admission?: Yes (16) Sepsis Qualifiers: Sepsis type: methicillin susceptible Staphylococcus aureus Sepsis acute organ dysfunction status: with acute organ dysfunction Severe sepsis acute organ dysfunction type: acute respiratory failure Acute respiratory failure type: with hypoxia Severe sepsis shock status: with septic shock Qualified Code(s): A41.01 - Sepsis due to Methicillin susceptible Staphylococcus aureus; R65.21 - Severe sepsis with septic shock; J96.01 - Acute respiratory failure with hypoxia Is this a current diagnosis for this admission?: Yes - Time Time Spent with patient: 35 or more minutes Medications reviewed and adjusted accordingly: Yes Anticipated Discharge Disposition: [facility] Anticipated Discharge Timeframe: within 48 hours
--- NOTE | 2020-05-20 15:13 | RADIOLOGY REPORT (SQ) ---
EXAM DESCRIPTION: CT LUMBAR SPINE WITHOUT IMAGES COMPLETED DATE/TIME: 05/20/2020 2:59 pm REASON FOR STUDY: Bacteremia MRSA ?souce, chronic sacral wound COMPARISON: None. TECHNIQUE: Axial images acquired through the lumbar spine without intravenous contrast. Images revi ewed with lung, soft tissue and bone windows. Reconstructed coronal and sagittal MPR images reviewed . All images stored on PACS. All CT scanners at this facility use dose modulation, iterative reconstruction, and/or weight based d osing when appropriate to reduce radiation dose to as low as reasonably achievable (ALARA). [facility]: Dose Right [facility]: CareDose [facility]: Dose Right [facility]: Teradose 4D [facility]: [employer] RADIATION DOSE: mGy. LIMITATIONS: None. FINDINGS: SEGMENTATION: Normal. No transitional anatomy. ALIGNMENT: Normal. VERTEBRAL BODIES: No fractures. No dislocation. No acute findings. There are prominent anterior os teophytes from L2-L4 and in the lower thoracic spine. DISCS: Disc spaces are narrowed from L2 to the L5. Mild concentric disc bulging at L3-4, L4 5, L5-S1 . No central canal or foraminal stenosis. PEDICLES, TRANSVERSE PROCESSES: No fractures. No dislocation. No acute findings. FACETS, POSTERIOR ELEMENTS: No fractures. No dislocation. No spinal stenosis. HARDWARE: None in the spine. VISUALIZED RIBS: No fractures. SOFT TISSUES: No significant or acute finding in adjacent soft tissues. OTHER: No other significant finding. IMPRESSION: Degenerative disc disease, spondylosis, mild concentric disc bulging as described. No s ignificant stenoses. No evidence of sacral osteomyelitis. TECHNICAL DOCUMENTATION: JOB ID: [id number] Quality ID # [id number]: Final reports with documentation of one or more dose reduction techniques (e.g., Au tomated exposure control, adjustment of the mA and/or kV according to patient size, use of iterative reconstruction technique) 2010 [employer]- All Rights Reserved Reading location - IP/workstation name: [email or web address]
[2020-05-20] MEDS: NORMAL SALINE 1000 ML 1,000 ML IV PRN (16:33)
[2020-05-20] MEDS: POTASSIUM CHLORIDE 20 MEQ PACKET PO SCH (17:23)
--- NOTE | 2020-05-20 19:10 | XCELERA REPORT ---
[address] [address] Transthoracic Echocardiogram Report Name: NIKHIL ESCOBAR Age: 69 yrs Gender: Male : 1950 Patient Status: Inpatient Patient Location: [address] [place] [address] Study Date: 05/19/2020 06:17 PM Height: 67 in Weight: 198 lb BSA: 2.0 m2 Procedure: A two-dimensional transthoracic echocardiogram with color flow and Doppler was performed. Study Quality: Poor. Reason For Study: Bacteremia-MRSA History: Bacteremia-MRSA. Ordering Physician: MEHRDAD BAIRD Performed By: Sue Ramirez Interpretation Summary No vegetations or evidence of endocaaditis,.If clinical suspicion is higggh recommend SERENE. The left ventricle is grossly normal size. Probably no LVH and no defenite regional wall motion abnormality. LV EF is 45% to 50% Left ventricular systolic function is mild to moderately reduced. LV diastolic function could not be adequately assessed. The right ventricle is not well visualized secondary to technical limitations Right atrium not well visualized secondary to technical limitations The left atrium is mildly dilated. There is no evidence of mitral valve prolapse. There is no mitral valve stenosis. There is a mild amount of mitral regurgitation There is no aortic valvular vegetation. There is no aortic valve stenosis No aortic regurgitation is present. There is no tricuspid stenosis. There is a mild to moderate amount of tricuspid regurgitation There is mild pulmonary hypertension by echo RVSP is 33 to 38 mm of HG ,with RA mean of 5 to 10 There is no pulmonic valvular stenosis. The aortic root is not well visualized. The inferior vena cava appeared normal and decreased > 50% with respiration (RAP 5-10 mmHg) There is no pericardial effusion. No vegetations or evidence of endocaaditis,.If clinical suspicion is higleylah recommend SERENE. MMode/2D Measurements & Calculations RVDd: 2.9 cm LVIDd: 5.5 cm FS: 24.3 % Ao root diam: 2.7 cm IVSd: 0.77 cm LVIDs: 4.2 cm EDV(Teich): 149.8 ml Ao root area: 5.7 cm2 LVPWd: 0.85 cm ESV(Teich): 78.3 ml LA dimension: 4.4 cm EF(Teich): 47.8 % Doppler Measurements & Calculations MV E max luna: MV P1/2t max luna: Ao V2 max: LV V1 max P.2 cm/sec 87.5 cm/sec 91.2 cm/sec 2.3 mmHg MV A max luna: MV P1/2t: 77.5 msec Ao max PG: LV V1 max: 68.2 cm/sec MVA(P1/2t): 2.8 cm2 3.3 mmHg 75.3 cm/sec MV E/A: 1.1 MV dec slope: 330.8 cm/sec2 MV dec time: 0.20 sec PA V2 max: PI end-d luna: TR max luna: MV P1/2t-pr_phl: 63.2 cm/sec 80.1 cm/sec 263.7 cm/sec 77.5 msec PA max PG: TR max P.6 mmHg 27.8 mmHg Left Ventricle The left ventricle is grossly normal size. Probably no LVH and no defenite regional wall motion abnormality. LV EF is 45% to 50%. Left ventricular systolic function is mild to moderately reduced. LV diastolic function could not be adequately assessed. Right Ventricle The right ventricle is not well visualized secondary to technical limitations. Atria Right atrium not well visualized secondary to technical limitations. The left atrium is mildly dilated. Mitral Valve There is no evidence of mitral valve prolapse. There is no mitral valve stenosis. There is a mild amount of mitral regurgitation. Aortic Valve There is no aortic valvular vegetation. There is no aortic valve stenosis. No aortic regurgitation is present. Tricuspid Valve There is no tricuspid stenosis. There is a mild to moderate amount of tricuspid regurgitation. There is mild pulmonary hypertension by echo. RVSP is 33 to 38 mm of HG ,with RA mean of 5 to 10. Pulmonic Valve There is no pulmonic valvular stenosis. There is no pulmonic valvular regurgitation. Great Vessels The aortic root is not well visualized. The inferior vena cava appeared normal and decreased > 50% with respiration (RAP 5-10 mmHg). Effusions There is no pericardial effusion. : MEHRDAD BAIRD Lakshmi
[2020-05-20] MEDS: RIVAROXABAN 10 MG TABLET NG SCH (22:29)
[2020-05-21] MEDS: GUAIFENESIN SYRP 200 MG/10 ML UDC NG SCH ×4 (00:18→17:22)
[2020-05-21] MEDS: IPRATROPIUM/ALBUTEROL 0.5-2.5 MG/3 ML AMPUL NEB SCH ×4 (02:54→19:47)
[2020-05-21 05:26] LABS: HEMATOCRIT 33.8 % (37.9-51.0); HEMOGLOBIN 11.3 g/dL (13.5-17.0); MEAN CORPUSCULAR HEMOGLOBIN 28.3 pg (27.0-33.4); MEAN CORPUSCULAR HGB CONC 33.3 g/dL (32.0-36.0); MEAN CORPUSCULAR VOLUME 85 fl (80-97); PLATELET COUNT 453 10^3/uL (150-450); RED BLOOD COUNT 3.98 10^6/uL (4.35-5.55); RED CELL DISTRIBUTION WIDTH 15.7 % (11.5-14.0); WHITE BLOOD COUNT 8.1 10^3/uL (4.0-10.5)
[2020-05-21 05:46] LABS: ANION GAP 8 (5-19); BLOOD UREA NITROGEN 5 mg/dL (7-20); CALCIUM 8.6 mg/dL (8.4-10.2); CARBON DIOXIDE 26 mmol/L (22-30); CHLORIDE 107 mmol/L (98-107); GLUCOSE 85 mg/dL (75-110); POTASSIUM 3.7 mmol/L (3.6-5.0)
[2020-05-21 05:51] LABS: VANCOMYCIN,TROUGH 22.5 ug/mL (5.0-20.0)
[2020-05-21] MEDS: VANCOMYCIN HCL 1,000 MG in DEXTROSE 5%-WATER 250 ML IV SCH ×2 (07:39→14:47)
[2020-05-21] MEDS: BUDESONIDE NEB 0.25 MG/2 ML AMPUL NEB SCH ×2 (08:44→19:47)
--- NOTE | 2020-05-21 09:22 | ST Inp Modified Barium Swallow ---
Medical Diagnosis - Medical Diagnoses Medical Diagnosis Description & ICD-10 Code(s): dysphagia R13.10 - ICD-10 Tx Diagnosis Coding (1) Acute respiratory failure ICD-10 Code(s): J96.00 - ACUTE RESPIRATORY FAILURE, UNSP W HYPOXIA OR HYPERCAPNIA (2) Aspiration into lower respiratory tract ICD-10 Code(s): T17.800A - UNSP FOREIGN BODY IN OTH PRT RESP TRACT CAUSING ASPHYX, INIT (3) Pneumonia ICD-10 Code(s): J18.9 - PNEUMONIA, UNSPECIFIED ORGANISM Inpatient MBS - General Date: 05/21/20 Date of Onset: 05/15/20 - admit date - History -: Medical - per EMR: patient admitted 05/15 from [facility] with acute hypoxemic respiratory failure. Prior medical history includes COPD, CHF, possible Parkinson's or parkinsonian. Patient was intubated from 05/16-05/17. Subsequently, it was reported that the patient passed a swallow screen, of note, it stated that the patient swallows 30 mL without difficulty, however, a passed swallow screen should be 90 mL without s/s of aspiration. Formal speech evaluation ordered due to concern for aspiration, which revealed coughing with 90 mL of water. MBSS indicated at that time. Unsure of baseline diet at facility. Patient reports "I've had this test at [facility]", difficulty being able to tell results of swallow test other than, "I need to go slow". Asked if the patient had an x-ray, or if a camera was placed down his throat, patient states "a camera". Patient may have had a Fibertoptic Endoscopic Evaluation of Swallowing (FEES). Medications: Medications Reviewed Allergies: No known allergies - Subjective Current Nutritional Means: PO Current PO Diet: Regular - with thin liquids Current Symptoms: Coughing, Pneumonia Pain: Patient reports, 0/5 - Objective Assessment: Upright, Left Lateral - Food Trials Food Trials Used: Thin liquids, [place] thick liquids, Pureed, Regular The Patient: Required Assist, fed by ST - Assessment Labial Function: Within Normal Limits Lingual Function: Within Functional Limits Mandibular Function: Within Functional Limits Dentition: Partial Velo-Pharyngeal Function: Unremarkable Laryngeal Function: weak voicing - Pharyngeal Stage Initiation of Pharyngeal Stage: Delayed - dumping of liquid bolus into pharynx prior to true initiation of swallow reflex Decreased Laryngeal Elevation: Yes - mild Reduced Velo-Pharyngeal Closure: no Reduced Pressure Generation: Yes - mild Reduced Tongue Base Retraction: Yes Pre-Swallowing Pooling in Valleculae: Moderate Pre-Swallowing Pooling in Pyriforms: Mild Reduced Epiglottic Excursion: No Reduced Pharyngeal Peristalsis: No Multiple Swallows With: Cleared w/ Dry Swallow Post Swallow Residuals in Valleculae: Mild Post Swallow Residuals in Pyriforms: Mild Post Swallow Residuals: tongue-base - Impression/Summary Laryngeal Penetration: Yes - intermittent penetration seen with thin and nectar thick liquids Tracheal Aspiration: yes - likely trace aspiration with thin liquids (difficult to clearly observe), overt aspiration with nectar thick liquids with no cough or other reaction. Productive Cough: No Effective Clearing: no Patient Presents With: Oral-Pharyngeal dysph. - moderate Risk of Aspiration: Moderate Risk Due To: Patient demonstrates premature spillage of liquid into pharynx prior to swallow initiation, resulting in liquid (thin and nectar) entering the open laryngeal vestibule prior to the swallow. There is also tongue base residue of solids post swallow, able to be cleared with cued second swallow. No signs that the patient has sensation of penetration, aspiration, or residue. Trace aspiration of thin liquid was likely, though not directly observed due to positioning. Overt and large amount of aspiration of nectar thick liquid was observed x1. - Recommendations Solid Diet Recommendations: Mechanical Soft, Ground Meat Liquid Diet Recommendations: Thin Strict Aspitarion Precautions: Yes Recommended Techniques: Fully Upright During Meal, Small Bites and Sips Supervision: requires assistance - Time Total Time: 30 Total Timed Minutes: 30
[2020-05-21] MEDS: FLUTICASONE/VILANTEROL 200-25 MCG/DOSE IH SCH (10:04)
[2020-05-21] MEDS: CARBIDOPA/LEVODOPA 10-100 MG TABLET PO SCH ×3 (10:05→17:22)
[2020-05-21] MEDS: CEFTRIAXONE 1 GM/D5W RTU 1 GM/50 ML RTUPB IV SCH (10:05)
[2020-05-21] MEDS: PANTOPRAZOLE SODIUM 40 MG PACKET.DR NG SCH (10:05)
[2020-05-21] MEDS: POTASSIUM CHLORIDE 20 MEQ PACKET PO SCH ×3 (10:05→17:22)
[2020-05-21] MEDS: PREDNISONE 20 MG TABLET PO SCH (10:05)
[2020-05-21] MEDS: UMECLIDINIUM BROMIDE 62.5 MCG/DOSE IH SCH (10:05)
[2020-05-21] MEDS: DULOXETINE HCL 30 MG CAPSULE.DR PO SCH (10:05)
[2020-05-21] MEDS: LEVETIRACETAM ORAL SOLN 500 MG/5 ML UDCUP PO SCH (10:06)
--- NOTE | 2020-05-21 11:09 | RADIOLOGY REPORT (SQ) ---
EXAM DESCRIPTION: COOKIE SWALLOW IMAGES COMPLETED DATE/TIME: 05/21/2020 8:57 am REASON FOR STUDY: signs of aspiration, poss. parkinsons COMPARISON: None. TECHNIQUE: Videofluoroscopic swallowing examination was performed in conjunction with speech patholo gy. Videofluoroscopic imaging was obtained and reviewed and these are the findings: RADIATION DOSE: Fluoro time 4.7 minutes 1 images saved to PACS. LIMITATIONS: None FINDINGS: The patient was brought into the fluoro room and placed upright on a modified barium swall ow chair. The patient was then given multiple consistencies mixed with barium to swallow under live fluoroscopic video guidance. According to the Speech Pathologist there was deep laryngeal penetratio n to the vocal cords was seen with thin barium, with probable trace aspiration. Aspiration was seen with nectar thick consistency. Thicker consistencies and solids were swallowed without incident. Ple ase refer to the speech pathology report for further details. IMPRESSION: ASPIRATION WITH NECTAR THICK CONSISTENCY. DEEP LARYNGEAL PENETRATION WITH PROBABLE ASPI RATION WITH THIN BARIUM. PLEASE SEE SPEECH PATHOLOGIST REPORT FOR OTHER FINDINGS AND RECOMMENDATIONS. COMMENT: None Quality ID [id number]: Final reports for procedures using fluoroscopy that document radiation exposure nando mike, or exposure time and number of fluorographic images (if radiation exposure indices are not avail able) TECHNICAL DOCUMENTATION: JOB ID: [id number] 2010 [employer]- All Rights Reserved Reading location - IP/workstation name: [id number]
--- NOTE | 2020-05-21 16:05 | RADIOLOGY REPORT (SQ) ---
EXAM DESCRIPTION: PICC INSERTION IMAGES COMPLETED DATE/TIME: 05/21/2020 3:50 pm REASON FOR STUDY: for IV antibiotics COMPARISON: None. FLUOROSCOPY TIME: 1 minutes 4 seconds 2 images saved to PACS. TECHNIQUE: Fluoroscopic and ultrasound guided PICC placement. LIMITATIONS: None. PROCEDURE: After written consent and assessment were obtained, the patient was brought into the fluo roscopy room and placed supine on the table. Ultrasound evaluation of potential access sites were per formed. After successfully identifying a patent left basilic vein, the left arm was prepped and drape d in a sterile fashion along with the ultrasound probe. The entry site was anesthetized with 1% lidoc audra. A 21 gauge 7 cm needle was advanced through the skin and into the basilic vein under live ultra sound guidance. An ultrasound image was saved to PACS confirming access site. A .018 guide wire was then inserted through the needle and into the venous system. The needle was then removed and an 11 b lade scalpel was used to make a 1cm skin incision. A 5 fr peel-away sheath was advanced over the wir e and into the venous system. A measurement was then made using the existing wire and live fluoroscop ic guidance. The wire was then removed and trimmed. The PICC was advanced through the peel-away sheat h and into the venous system. The peel-away sheath was removed and the catheter was adhered to the pa tients arm with a stat lock. The catheter was then aspirated and flushed and a sterile bandage was pl aced over the access site. A fluoroscopic spot image was saved to PACS confirming the catheter tip w ithin the superior vena cava. IMPRESSION: SUCCESSFUL PLACEMENT OF A 5 FR DUAL LUMEN 42 CM PICC IN THE LEFT BASILIC VEIN. COMMENT: Patient medication list reviewed: Yes- Quality ID# [id number]:Eligible professional attests to doc umenting in the medical record they obtained, updated, or reviewed the patient's current medications. . Quality ID 145: Final reports for procedures using fluoroscopy that document radiation exposure nando mike, or exposure time and number of fluorographic images (if radiation exposure indices are not avail able) Quality ID #76: The patient was prepped and draped using maximum sterile barrier technique including cap, mask, sterile gown, sterile gloves, a large sterile sheet, hand hygiene, and 2% Chlorhexidine fo r cutaneous antisepsis. When ultrasound is used, sterile ultrasound techniques are followed requiring sterile gel and sterile probes. TECHNICAL DOCUMENTATION: JOB ID: [id number] 2010 [employer]- All Rights Reserved Reading location - IP/workstation name: [email or web address]
[2020-05-21] MEDS ORDERED: NORMAL SALINE 10 ML SDV (AFTER EACH USE) IV PRN (18:00)
--- NOTE | 2020-05-21 18:33 | PDOC PROGRESS REPORT ---
Subjective Progress Note for:: 05/21/20 Subjective:: 05/19/2020: Matt Dalton is a 69 year old male with PMHx significant for obesity, CHF, sleep apnea, PNA, polymyositis, possibly parkinsonism, and COPD who [facility]. He was found to have acute hypoxemic respiratory failure subsequntially admitted to the ICU for further care and evaluation. Upon evaluation he was found to be an aspiration risk and requiring itubation. In the ICU an endotracheal tube, central line and arterial line were placed. Cefepime and Vancomycin were started for E. Coli in the urine and MRSA in the blood. He had an overall uneventful course in the ICU and was extubated and transferred to the hospitalist service on 05/18/2020. Previous records from [facility] were reviewed. Patient was admitted to the roll picker service on 04/13/20 for AMS and acute respiratory failure r/t pneumonia requiring intubation with extubation on 04/16/20 and inevitably discharged on 04/21/2020. Patient seen on afternoon rounds. He is sitting upright in bed, resting comfortably. He is on 2L NC. He reports sore throat and lost voice, suspect secondary to recent intubation. C/o occasional cough, but is otherwise feeling well and provides no complaints. Denies fever, chills, CP, palpitaitons, SOB, abd pain, NVD. Patient is a resident at [facility], facility has been contacted requesting records. 05/20/2020: Patient seen on morning rounds. Resting in bed comfortably. Cough, sore throat and hoarse voice improved from previous. Denies fever, chills, CP, palpitations, SOB, abd pain, NVD. Discussed case with pt's nurse. Per nurse pt had catheter in place at time of admission, catheter was changed during his ICU stay. 05/21/2020: Patient seen on afternoon rounds. He is resting in bed comfortably. Cough, sore throat and hoarse voice continue to improve. Denies fever, chills, CP, palpitations, SOB, abd pain, NVD. Discussed case with pt's nurse. Reports PICC line placement prior. No other concerns or complaints at this time. Reason For Visit: UTI, COPD, ACUTE RESPIRATORY FILURE, GENERALIZED Physical Exam Vital Signs: Temp Pulse Resp BP Pulse Ox 98.1 F 90 20 129/72 H 98 05/21/20 16:59 05/21/20 16:59 05/21/20 16:59 05/21/20 16:59 05/21/20 16:59 Intake & Output 05/20/20 05/21/20 05/22/20 06:59 06:59 06:59 Intake Total 3200 2500 1327 Output Total 3000 6575 1100 Balance 200 -4075 227 Weight 81.5 kg 79.9 kg General appearance: PRESENT: no acute distress, cooperative, well-developed, well-nourished Head exam: PRESENT: atraumatic, normocephalic Eye exam: PRESENT: conjunctiva pink, EOMI, PERRLA Mouth exam: PRESENT: dry mucosa, tongue midline Neck exam: ABSENT: carotid bruit, full ROM, lymphadenopathy, tenderness Respiratory exam: PRESENT: rhonchi - all lung nolasco, improving, unlabored, ot her - Supplemental O2 2L NC. ABSENT: tachypnea Cardiovascular exam: PRESENT: RRR, +S1, +S2 Pulses: PRESENT: normal radial pulses GI/Abdominal exam: PRESENT: normal bowel sounds, soft, other - diastasis when lying supine. ABSENT: ascites, firm, tenderness Gentrourinary exam: PRESENT: indwelling catheter - chronic Extremities exam: PRESENT: other - limited mobility, bedbound/total care at baseline. R hand activly trembles on exam, consisten with parckansons. ABSENT: pedal edema Musculoskeletal exam: ABSENT: ambulatory, dislocation Neurological exam: PRESENT: alert, awake, oriented to person, oriented to place. ABSENT: altered Psychiatric exam: PRESENT: normal mood Skin exam: PRESENT: dry, other - Heliotropic rash. Onychomycosis changes to nails. Evidence of previous skin graft on left malleolus. Scattered echymosis all extremities. Dressing on sacral wound.. ABSENT: cyanosis, rash Results Laboratory Results: 05/21/20 04:49 05/21/20 04:49 05/21/20 05/21/20 04:49 04:49 WBC 8.1 RBC 3.98 L Hgb 11.3 L Hct 33.8 L MCV 85 MCH 28.3 MCHC 33.3 RDW 15.7 H Plt Count 453 H Sodium 140.9 Potassium 3.7 Chloride 107 Carbon Dioxide 26 Anion Gap 8 BUN 5 L Creatinine 0.35 L Est GFR ( Amer) > 60 Glucose 85 Calcium 8.6 Magnesium 1.9 05/15/20 21:12 Blood Blood Culture (PCR) - Final Staphylococcus Aureus 05/15/20 21:12 Blood Blood Culture - Final Mrsa (Meth Resis Staph Aureus) Staphylococcus Capitis 05/15/20 05/15/20 05/15/20 09:20 15:08 15:57 CK-MB (CK-2) < 0.22 Troponin I < 0.012 Cancelled 0.025 NT-Pro-B Natriuret Pep 183 H Impressions: Abdomen X-Ray 05/15/20 15:11 IMPRESSION: Nasoenteric tube tip overlies proximal gastric body with side port just distal to GE junction. Chest X-Ray 05/19/20 00:00 IMPRESSION: NO ACUTE FINDINGS. Lumbar Spine CT 05/20/20 00:00 IMPRESSION: Degenerative disc disease, spondylosis, mild concentric disc bulging as described. No significant stenoses. No evidence of sacral osteomyelitis. Modified Barium Swallow 05/21/20 00:00 IMPRESSION: ASPIRATION WITH NECTAR THICK CONSISTENCY. DEEP LARYNGEAL PENETRATION WITH PROBABLE ASPIRATION WITH THIN BARIUM. PLEASE SEE SPEECH PATHOLOGIST REPORT FOR OTHER FINDINGS AND RECOMMENDATIONS. PICC Line Insertion 05/21/20 00:00 IMPRESSION: SUCCESSFUL PLACEMENT OF A 5 FR DUAL LUMEN 42 CM PICC IN THE LEFT BASILIC VEIN. Assessment and Plan - Diagnosis (1) Bacteremia due to methicillin resistant Staphylococcus aureus Is this a current diagnosis for this admission?: Yes Plan: - Etiology remains unknown regardless of investigative workup - Consulted ID. MRSA in blood (05/15/2020) - Currently on Vanc and Rocephin - Vanc with current trough level 22. Pharmacy contacted, they are aware, they will adjust dosage. - BC negative. - TTE, without evidence of vegetations - Continue IV vanc x2 weeks from negative culture/TTE (dc date will be 06/04/2020) - PICC placed today - Plan to discharge tomorrow (2) Pharyngeal dysphagia Is this a current diagnosis for this admission?: Yes Plan: Pt seen by speech therapy found to have significant risk of aspiration on swallow study. - Barium swallow completed. Results reviewed. - Moderate risk of aspiration with aspiration of thin and thick liquids observed. - Recommends: soft diet with ground meats, thin liquids, strict aspiration precautions, fully upright with meals, small bites, assistance required - Consider code discussion with pt and pt's family at this time (3) Escherichia coli urinary tract infection Is this a current diagnosis for this admission?: Yes Plan: - UC + E. Coli 05/15/2020 - Rocephin therapy day 7 - Pt with chronic urinary catheter - Per nurse pt chronic cath; catheter was changed in the ICU; no further attention needed (4) Polymyositis Is this a current diagnosis for this admission?: Yes Plan: - Physical findings suspicious for dermatomyositis. - The patient reports chronic steroid therapy (prednisone 40 mg p.o. daily for over 1 year). - Previously on Solu-Medrol 80 mg IV daily. - Started on prednisone 80 mg p.o; will d/c at this current daily dose - Recommend slow taper of dose over the course of a year or so. - Continue on Protonix. (5) Sepsis Qualifiers: Sepsis type: methicillin susceptible Staphylococcus aureus Sepsis acute organ dysfunction status: with acute organ dysfunction Severe sepsis acute organ dysfunction type: acute respiratory failure Acute respiratory failure type: with hypoxia Severe sepsis shock status: with septic shock Qualified Code(s): A41.01 - Sepsis due to Methicillin susceptible Staphylococcus aureus; R65.21 - Severe sepsis with septic shock; J96.01 - Acute respiratory failure with hypoxia Is this a current diagnosis for this admission?: Yes Plan: - Resolved - Continue antibiotic therapy. - Arterial line removed. Central line removed. Two peripheral IVs placed. - Follow-up culture negative at 48 hours (6) Unstageable pressure ulcer of sacral region Is this a current diagnosis for this admission?: Yes Plan: - Unstageable chronic pressure ulcer of sacral region with actively bleeding base and feces in wound bed. - CT lumbar and sacrum ordered without evidence of abscess or osteomylitis - Allevyn dressing in place, wound care and dressing changes every other day - Consider offloading the area at nursing facility (7) Hoarse voice quality Is this a current diagnosis for this admission?: Yes Plan: - Hoarse voice on presentation; continues to improve. - Appears to be at his baseline voice today (8) Aspiration into lower respiratory tract Qualifiers: Encounter type: initial encounter Qualified Code(s): T17.800A - Unspecified foreign body in other parts of respiratory tract causing asphyxiation, initial encounter Is this a current diagnosis for this admission?: Yes Plan: - Suspected cause of respiratory distress requiring intubation with intensive care attention - Pt high risk of recurrent aspiration as discussed in Barium swallow study - Treat as discussed above (Dysphagia) (9) Staphylococcal pneumonia Is this a current diagnosis for this admission?: Yes Plan: - CXR abnormal - MSSA sputum culture 05/15/20 - Currently on Rocephin and vancomycin (10) COPD (chronic obstructive pulmonary disease) Qualifiers: COPD type: emphysema Emphysema type: centrilobular Qualified Code(s): J43.2 - Centrilobular emphysema Is this a current diagnosis for this admission?: Yes Plan: - Continue bronchodilator therapy. - Continue wit hPulmicort. - Continue with O2 therapy (11) Systolic congestive heart failure Qualifiers: Heart failure chronicity: chronic Qualified Code(s): I50.22 - Chronic systolic (congestive) heart failure Is this a current diagnosis for this admission?: Yes Plan: - Echo performed 05/19/2020: Systolic dyfunction with LVEF 45-50% - Home medications include: Furosemide 40mg - Consider outpatient therapy with clinically supported ACEI/ARB and BB. - Time Time Spent with patient: 15-24 minutes Medications reviewed and adjusted accordingly: Yes Anticipated Discharge Disposition: Halfway Facility Anticipated Discharge Timeframe: within 24 hours
[2020-05-22] MEDS: GUAIFENESIN SYRP 200 MG/10 ML UDC NG SCH ×4 (00:34→18:18)
[2020-05-22] MEDS: LEVETIRACETAM ORAL SOLN 500 MG/5 ML UDCUP PO SCH ×2 (00:34→10:41)
[2020-05-22] MEDS: RIVAROXABAN 10 MG TABLET NG SCH (00:56)
[2020-05-22] MEDS: NORMAL SALINE 10 ML SDV (SCHEDULED) IV SCH ×2 (00:56→10:41)
[2020-05-22] MEDS: VANCOMYCIN HCL 1,000 MG in DEXTROSE 5%-WATER 250 ML IV SCH ×2 (00:56→08:38)
[2020-05-22] MEDS: IPRATROPIUM/ALBUTEROL 0.5-2.5 MG/3 ML AMPUL NEB SCH ×3 (02:23→14:27)
[2020-05-22] MEDS: BUDESONIDE NEB 0.25 MG/2 ML AMPUL NEB SCH (08:39)
[2020-05-22 09:02] LABS: HEMATOCRIT 33.8 % (37.9-51.0); HEMOGLOBIN 11.1 g/dL (13.5-17.0); MEAN CORPUSCULAR HEMOGLOBIN 28.2 pg (27.0-33.4); MEAN CORPUSCULAR HGB CONC 32.8 g/dL (32.0-36.0); MEAN CORPUSCULAR VOLUME 86 fl (80-97); PLATELET COUNT 470 10^3/uL (150-450); RED BLOOD COUNT 3.93 10^6/uL (4.35-5.55); RED CELL DISTRIBUTION WIDTH 15.5 % (11.5-14.0); WHITE BLOOD COUNT 7.7 10^3/uL (4.0-10.5)
[2020-05-22 09:16] LABS: ANION GAP 6 (5-19); BLOOD UREA NITROGEN 9 mg/dL (7-20); CALCIUM 8.6 mg/dL (8.4-10.2); CARBON DIOXIDE 29 mmol/L (22-30); CHLORIDE 104 mmol/L (98-107); GLUCOSE 94 mg/dL (75-110)
[2020-05-22 09:20] LABS: VANCOMYCIN,TROUGH 14.6 ug/mL (5.0-20.0)
[2020-05-22] MEDS ORDERED: VANCOMYCIN HCL 1,000 MG in DEXTROSE 5%-WATER 250 ML IV SCH (10:30)
[2020-05-22] MEDS: DULOXETINE HCL 30 MG CAPSULE.DR PO SCH (10:37)
[2020-05-22] MEDS: POTASSIUM CHLORIDE 20 MEQ PACKET PO SCH ×3 (10:37→18:18)
[2020-05-22] MEDS: PREDNISONE 20 MG TABLET PO SCH (10:37)
[2020-05-22] MEDS: FLUTICASONE/VILANTEROL 200-25 MCG/DOSE IH SCH (10:37)
[2020-05-22] MEDS: UMECLIDINIUM BROMIDE 62.5 MCG/DOSE IH SCH (10:37)
[2020-05-22] MEDS: CEFTRIAXONE 1 GM/D5W RTU 1 GM/50 ML RTUPB IV SCH (10:39)
[2020-05-22] MEDS: PANTOPRAZOLE SODIUM 40 MG PACKET.DR NG SCH (10:40)
[2020-05-22] MEDS: CARBIDOPA/LEVODOPA 10-100 MG TABLET PO SCH ×3 (10:40→18:18)
--- NOTE | 2020-05-22 14:17 | PDOC TRANSFER SUMMARY ---
<MEHRDAD BAIRD - Last Filed: 05/22/20 14:10> Impression - Admit/DC Date/PCP Admission Date/Primary Care Provider: 05/15/20 15:59 ANG ALVAREZ MD Discharge Date: 05/22/20 - Discharge Diagnosis (1) Bacteremia due to methicillin resistant Staphylococcus aureus Is this a current diagnosis for this admission?: Yes (2) Pharyngeal dysphagia Is this a current diagnosis for this admission?: Yes (3) Escherichia coli urinary tract infection Is this a current diagnosis for this admission?: Yes (4) Polymyositis Is this a current diagnosis for this admission?: Yes (5) Sepsis Is this a current diagnosis for this admission?: Yes (6) Unstageable pressure ulcer of sacral region Is this a current diagnosis for this admission?: Yes (7) Hoarse voice quality Is this a current diagnosis for this admission?: Yes (8) Aspiration into lower respiratory tract Is this a current diagnosis for this admission?: Yes (9) Staphylococcal pneumonia Is this a current diagnosis for this admission?: Yes (10) COPD (chronic obstructive pulmonary disease) Is this a current diagnosis for this admission?: Yes (11) Systolic congestive heart failure Is this a current diagnosis for this admission?: Yes (12) Advance care planning Is this a current diagnosis for this admission?: Yes - Assessment Summary: Matt Dalton is a 69 year old bed-bound man with PMH significant for CHF, VIKKI, atrial fibrillation on AC, aspiration PNA, parkinsonism, COPD who presented on 05/15/2020 from his long-term care facility for SOB. Aspiration Pneumonia, Acute Hypoxemic Respiratory Failure: He was found to have acute hypoxemic respiratory failure and admitted to the ICU for further care and evaluation. He was intubated, central line and arterial line were placed. Cefepime and Vancomycin were started for concern for sepsis. He had an overall uneventful course in the ICU and was extubated and transferred to the hospitalist service on 05/18/2020. 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 E coli CAUTI: his Lynn catheter was exchanged on admission. He completed a course of IV antibiotic treatment. * His Lynn catheter should be exchanged every 4 weeks to prevent future infections. MRSA Bacteremia: thought to be due to central line placed in the ICU. His infected central line was removed on 05/19 and he has been receiving IV vancomycin therapy. ID was consulted. PICC line was placed on 05/21/2020 for IV antibiotics. * He will complete IV Vancomycin on 06/01/2020, after which his PICC line should be removed. 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 He has been started on a mechanical soft diet with thin liquids. Strict aspiration precautions advised feedings. Advance Care Planning: Family meeting was held with patient and family on 05/22/2020 to discuss his chronic aspiration and high future risk of aspiration pneumonia as a result. The patient would like his sister, Alysia, to be his medical POA. Code status has been changed to DNR/DNI. He is interested in pursuing hospice services at his long-term care facility. * Please refer patient to a Hospice agency to begin transition to hospice. Sacral Decubitus Wound: he will require ongoing wound care, frequent turns and air mattress. COPD: no evidence of exacerbation during this hospitalization. VIKKI: continue BIPAP at 10/ at night. Code Status: DNR/DNI - Additional Information Resuscitation Status: Do Not Resuscitate Referrals: ANG ALVAREZ MD [Primary Care Provider] - Follow up as needed Home Medications: Acetaminophen [Tylenol] 650 mg PO Q4HP PRN 04/13/20 Apremilast [Otezla] 30 mg PO BID 04/13/20 Carbidopa/Levodopa [Sinemet 10-100 mg Tablet] 1 each PO Q8 04/13/20 Fluticasone/Vilanterol [Breo 200-25 Mcg Ellipta 14 Dose/Dpi] 1 inh IH DAILY 04/13/20 Furosemide [Lasix 40 mg Tablet] 40 mg PO QAM 04/13/20 Gabapentin 1,200 mg PO Q8 04/13/20 Guaifenesin [Mucus ER] 600 mg PO BID 04/13/20 Mag Hydrox/Aluminum Hyd/Simeth [Mylanta Maximum Strength Liq] 20 ml PO Q4HP PRN 04/13/20 Pantoprazole Sodium [Protonix] 40 mg PO BID 04/13/20 Polyethylene Glycol 3350 [Miralax Powder 17 gm/Packet] 1 packet PO Q12HP PRN 04/13/20 Propylene Glycol [Systane Complete] 1 drop OU Q4HP PRN 04/13/20 Rivaroxaban [Xarelto] 20 mg PO QHS 04/13/20 Umeclidinium Bee [Incruse 62.5 Mcg Ellipta 7 Dose/Dpi] 1 inh IH DAILY 04/13/20 Duloxetine HCl [Cymbalta 30 mg Capsule.dr] 30 mg PO DAILY 05/15/20 Ipratropium/Albuterol Sulfate [Duoneb 3 ml Ampul] 3 ml NEB RTQ4 05/15/20 Levetiracetam [Keppra 500 mg Tablet] 500 mg PO BID 05/15/20 Menthol/Zinc Oxide [Calmoseptine Ointment] 1 applic TOP BID 05/15/20 Potassium Chloride [Potassium Chloride 20 Meq Packet] 20 meq PO TID packet 05/22/20 Vancomycin HCl [Vancocin Inj 1000 mg Vial] 1,250 mg IV Q12 vial 05/22/20 Physical Exam Vital Signs: Temp Pulse Resp BP Pulse Ox 98.5 F 87 16 146/100 H 99 05/21/20 23:41 05/22/20 08:39 05/22/20 08:39 05/21/20 23:41 05/22/20 08:39 Intake & Output 05/21/20 05/22/20 05/23/20 06:59 06:59 06:59 Intake Total 2500 1327 50 Output Total 6575 2200 Balance -2834 -357 50 Weight 79.9 kg 78.2 kg General appearance: PRESENT: no acute distress, cooperative Head exam: PRESENT: atraumatic, normocephalic Eye exam: PRESENT: conjunctiva pink, EOMI Mouth exam: PRESENT: dry mucosa, tongue midline Neck exam: ABSENT: full ROM - Limited ROM neck, chronic, lymphadenopathy, tenderness Cardiovascular exam: PRESENT: RRR. ABSENT: tachycardia GI/Abdominal exam: PRESENT: normal bowel sounds, soft. ABSENT: distended, firm, tenderness Gentrourinary exam: PRESENT: indwelling catheter - Chronic Extremities exam: PRESENT: other - Bedbound at baseline Musculoskeletal exam: ABSENT: ambulatory, deformity, dislocation Neurological exam: PRESENT: alert, awake, oriented to person, oriented to place, oriented to time, oriented to situation, CN II-XII grossly intact. ABSENT: motor sensory deficit Psychiatric exam: PRESENT: appropriate affect, normal mood Skin exam: PRESENT: dry, other - PICC line in place left arm. No surroudning erythema. Onychmychosis naills. Evidence of prior skin graft left malleolus, sacral wound with dressing in place. ABSENT: erythema Results Laboratory Results: WBC 7.7 10^3/uL (4.0-10.5) 05/22/20 08:00 RBC 3.93 10^6/uL (4.35-5.55) L 05/22/20 08:00 Hgb 11.1 g/dL (13.5-17.0) L 05/22/20 08:00 Hct 33.8 % (37.9-51.0) L 05/22/20 08:00 MCV 86 fl (80-97) 05/22/20 08:00 MCH 28.2 pg (27.0-33.4) 05/22/20 08:00 MCHC 32.8 g/dL (32.0-36.0) 05/22/20 08:00 RDW 15.5 % (11.5-14.0) H 05/22/20 08:00 Plt Count 470 10^3/uL (150-450) H 05/22/20 08:00 Lymph % (Auto) Not Reportable 05/18/20 01:30 [place] % (Auto) Not Reportable 05/18/20 01:30 Eos % (Auto) Not Reportable 05/18/20 01:30 Baso % (Auto) Not Reportable 05/18/20 01:30 Absolute Neuts (auto) Not Reportable 05/18/20 01:30 Absolute Lymphs (auto) Not Reportable 05/18/20 01:30 Absolute Monos (auto) Not Reportable 05/18/20 01:30 Absolute Eos (auto) Not Reportable 05/18/20 01:30 Absolute Basos (auto) Not Reportable 05/18/20 01:30 Total Counted 100 05/18/20 01:30 Seg Neutrophils % Not Reportable 05/18/20 01:30 Seg Neuts % (Manual) 95 % (42-78) H 05/18/20 01:30 Lymphocytes % (Manual) 4 % (13-45) L 05/18/20 01:30 Monocytes % (Manual) 1 % (3-13) L 05/18/20 01:30 Eosinophils % (Manual) 0 % (0-6) 05/18/20 01:30 Basophils % (Manual) 0 % (0-2) 05/18/20 01:30 Abs Neuts (Manual) 11.2 10^3/uL (1.7-8.2) H 05/18/20 01:30 Abs Lymphs (Manual) 0.5 10^3/uL (0.5-4.7) 05/18/20 01:30 Abs Monocytes (Manual) 0.1 10^3/uL (0.1-1.4) 05/18/20 01:30 Absolute Eos (Manual) 0.0 10^3/uL (0.0-0.6) 05/18/20 01:30 Abs Basophils (Manual) 0.0 10^3/uL (0.0-0.2) 05/18/20 01:30 Toxic Granulation 1+ 05/18/20 01:30 Platelet Comment ADEQUATE 05/18/20 01:30 Poikilocytosis SLIGHT 05/18/20 01:30 Anisocytosis SLIGHT 05/18/20 01:30 Ovalocytes 1+ 05/18/20 01:30 [place] Cells SLIGHT 05/17/20 05:00 Schistocytes SLIGHT 05/18/20 01:30 PT 23.3 SEC (11.4-15.4) H 05/15/20 09:42 INR 2.06 05/15/20 09:42 APTT 45.5 SEC (23.5-35.8) H 05/15/20 09:42 D-Dimer 0.47 ug/mL (0.00-0.50) 05/15/20 09:42 Carbonic Acid 1.00 mmol/L (1.05-1.35) L 05/18/20 12:34 HCO3/H2CO3 Ratio 26:1 05/18/20 12:34 ABG pH 7.51 (7.35-7.45) H 05/18/20 12:34 ABG pCO2 33.3 mmHg (35-45) L 05/18/20 12:34 ABG pO2 60.7 mmHg (80-100) L 05/18/20 12:34 ABG HCO3 26.2 mmol/L (20-24) H 05/18/20 12:34 ABG Total CO2 27.2 mmol/L (23-27) H 05/18/20 12:34 ABG O2 Saturation 93.6 % (94-98) L 05/18/20 12:34 ABG Base Excess 3.4 mmol/L 05/18/20 12:34 FiO2 2L 05/18/20 12:34 Sodium 139.4 mmol/L (137-145) 05/22/20 08:20 Potassium 4.0 mmol/L (3.6-5.0) 05/22/20 08:20 Chloride 104 mmol/L (98-107) 05/22/20 08:20 Carbon Dioxide 29 mmol/L (22-30) 05/22/20 08:20 Anion Gap 6 (5-19) 05/22/20 08:20 BUN 9 mg/dL (7-20) 05/22/20 08:20 Creatinine 0.42 mg/dL (0.52-1.25) L 05/22/20 08:20 Est GFR ( Amer) > 60 (>60) 05/22/20 08:20 Est GFR (Non-Af Amer) Cancelled 05/19/20 05:15 Est GFR (MDRD) Non-Af > 60 (>60) 05/22/20 08:20 Glucose 94 mg/dL (75-110) 05/22/20 08:20 Lactic Acid 3.1 mmol/L (0.7-2.1) H 05/15/20 22:45 Calcium 8.6 mg/dL (8.4-10.2) 05/22/20 08:20 Phosphorus 1.3 mg/dL (2.5-4.5) L 05/17/20 05:00 Magnesium 1.9 mg/dL (1.6-2.3) 05/22/20 08:20 Ferritin 73.10 ng/mL (17.9-464.0) 05/15/20 09:20 Total Bilirubin 0.5 mg/dL (0.2-1.3) 05/20/20 08:40 Direct Bilirubin 0.3 mg/dL (0.0-0.4) 05/20/20 08:40 Neonat Total Bilirubin Not Reportable 05/20/20 08:40 Neonat Direct Bilirubin Not Reportable 05/20/20 08:40 Neonat Indirect Bili Not Reportable 05/20/20 08:40 AST 23 U/L (17-59) 05/20/20 08:40 ALT 6 U/L (<50) 05/20/20 08:40 Alkaline Phosphatase 55 U/L (38-126) 05/20/20 08:40 Lactate Dehydrogenase 179 U/L (120-246) 05/15/20 09:20 CK-MB (CK-2) < 0.22 ng/mL (<4.55) 05/15/20 09:20 Troponin I 0.025 ng/mL 05/15/20 15:57 NT-Pro-B Natriuret Pep 183 pg/mL (<125) H 05/15/20 09:20 Total Protein 6.4 g/dL (6.3-8.2) 05/20/20 08:40 Albumin 3.1 g/dL (3.5-5.0) L 05/20/20 08:40 Lipase 28.7 U/L (23-300) 05/15/20 09:20 EGFR Cancelled 05/19/20 05:15 Random Cortisol 12.90 ug/dL (None Established) 05/15/20 09:20 Cortisol AM Sample 5.24 ug/dL (4.46-22.7) 05/20/20 08:40 Urine Color YELLOW 05/15/20 10:41 Urine Appearance CLOUDY 05/15/20 10:41 Urine pH 5.0 (5.0-9.0) 05/15/20 10:41 Ur Specific [place] 1.019 05/15/20 10:41 Urine Protein 30 mg/dL (NEGATIVE) H 05/15/20 10:41 Urine Glucose (UA) NEGATIVE mg/dL (NEGATIVE) 05/15/20 10:41 Urine Ketones NEGATIVE mg/dL (NEGATIVE) 05/15/20 10:41 Urine Blood SMALL (NEGATIVE) H 05/15/20 10:41 Urine Nitrite POSITIVE (NEGATIVE) H 05/15/20 10:41 Urine Bilirubin NEGATIVE (NEGATIVE) 05/15/20 10:41 Urine Urobilinogen NEGATIVE mg/dL (<2.0) 05/15/20 10:41 Ur Leukocyte Esterase LARGE (NEGATIVE) H 05/15/20 10:41 Urine WBC (Auto) >182 /HPF 05/15/20 10:41 Urine RBC (Auto) 8 /HPF 05/15/20 10:41 U Hyaline Cast (Auto) 2 /LPF 05/15/20 10:41 Urine Bacteria (Auto) 1+ /HPF 05/15/20 10:41 Urine WBC Clumps MOD /HPF 05/15/20 10:41 Calcium Oxalate Cr Auto RARE /HPF 05/15/20 10:41 Urine Mucus (Auto) RARE /LPF 05/15/20 10:41 Urine Ascorbic Acid NEGATIVE (NEGATIVE) 05/15/20 10:41 Time Trough Drawn 81905/22/20 08:20 Vancomycin Trough 14.6 ug/mL (5.0-20.0) 05/22/20 08:20 COVID-19 Source See comment 05/15/20 10:07 COVID-19 (DIAZ) Not Detected (Not Detect) 05/15/20 10:07 Influenza A (Rapid) NEGATIVE (NEGATIVE) 05/15/20 10:41 Influenza B (Rapid) NEGATIVE (NEGATIVE) 05/15/20 10:41 Group A Strep Rapid NEGATIVE (NEGATIVE) 05/15/20 10:08 05/15/20 05/15/20 05/15/20 09:20 15:08 15:57 CK-MB (CK-2) < 0.22 Troponin I < 0.012 Cancelled 0.025 NT-Pro-B Natriuret Pep 183 H Impressions: Chest X-Ray 05/15/20 00:00 IMPRESSION: 1. Interval line and tube placement as above. 2. Developing bilateral infiltration or edema. copyright 2010 [employer]- All Rights Reserved Chest X-Ray 05/15/20 09:43 IMPRESSION: No evidence of acute cardiopulmonary process. Abdomen X-Ray 05/15/20 15:11 IMPRESSION: Nasoenteric tube tip overlies proximal gastric body with side port just distal to GE junction. Chest X-Ray 05/17/20 05:30 IMPRESSION: IMPROVED AERATION. Chest X-Ray 05/19/20 00:00 IMPRESSION: NO ACUTE FINDINGS. Lumbar Spine CT 05/20/20 00:00 IMPRESSION: Degenerative disc disease, spondylosis, mild concentric disc bulging as described. No significant stenoses. No evidence of sacral osteomyelitis. Modified Barium Swallow 05/21/20 00:00 IMPRESSION: ASPIRATION WITH NECTAR THICK CONSISTENCY. DEEP LARYNGEAL PENET RATION WITH PROBABLE ASPIRATION WITH THIN BARIUM. PLEASE SEE SPEECH PATHOLOGIST REPORT FOR OTHER FINDINGS AND RECOMMENDATIONS. PICC Line Insertion 05/21/20 00:00 IMPRESSION: SUCCESSFUL PLACEMENT OF A 5 FR DUAL LUMEN 42 CM PICC IN THE LEFT BASILIC VEIN. Plan Time Spent: Greater than 30 Minutes Stroke Is this a Stroke Patient?: No Acute Heart Failure Is this a Heart Failure Patient?: No <VIVI WHITAKER - Last Filed: 05/22/20 14:33> Impression - Admit/DC Date/PCP Admission Date/Primary Care Provider: 05/15/20 15:59 ANG ALVAREZ MD - Discharge Diagnosis (1) Catheter-associated urinary tract infection Is this a current diagnosis for this admission?: Yes (2) Aspiration into lower respiratory tract Is this a current diagnosis for this admission?: Yes (3) Bacteremia due to methicillin resistant Staphylococcus aureus Is this a current diagnosis for this admission?: Yes (4) COPD (chronic obstructive pulmonary disease) Is this a current diagnosis for this admission?: Yes (5) Dehydration Is this a current diagnosis for this admission?: Yes (6) Escherichia coli urinary tract infection Is this a current diagnosis for this admission?: Yes (7) Generalized weakness Is this a current diagnosis for this admission?: Yes (8) Hoarse voice quality Is this a current diagnosis for this admission?: Yes (9) Hypoadrenalism Is this a current diagnosis for this admission?: Yes (10) Sacral decubitus ulcer Is this a current diagnosis for this admission?: Yes (11) Staphylococcal pneumonia Is this a current diagnosis for this admission?: Yes (12) Unstageable pressure ulcer of sacral region Is this a current diagnosis for this admission?: Yes (13) Acute kidney injury Is this a current diagnosis for this admission?: Yes (14) Acute metabolic encephalopathy Is this a current diagnosis for this admission?: Yes (15) Autoimmune disease Is this a current diagnosis for this admission?: Yes (16) Sepsis Is this a current diagnosis for this admission?: Yes - Additional Information Resuscitation Status: Do Not Resuscitate Discharge Diet: Cardiac, Other (Comments) - mechanical soft with thin liquids Discharge Activity: Activity As Tolerated, Supervised Activity History of Present Illiness History of Present Illness: NIKHIL ESCOBAR is a 69 year old male Physical Exam Vital Signs: Temp Pulse Resp BP Pulse Ox 98.5 F 87 16 146/100 H 99 05/21/20 23:41 10/09/20 08:39 05/22/20 08:39 05/21/20 23:41 05/22/20 08:39 Intake & Output 05/21/20 05/22/20 05/23/20 06:59 06:59 06:59 Intake Total 4311 1327 50 Output Total 6556 5542 Balance -8261 -919 50 Weight 79.9 kg 78.2 kg Results Laboratory Results: WBC 7.7 10^3/uL (4.0-10.5) 05/22/20 08:00 RBC 3.93 10^6/uL (4.35-5.55) L 05/22/20 08:00 Hgb 11.1 g/dL (13.5-17.0) L 05/22/20 08:00 Hct 33.8 % (37.9-51.0) L 05/22/20 08:00 MCV 86 fl (80-97) 05/22/20 08:00 MCH 28.2 pg (27.0-33.4) 05/22/20 08:00 MCHC 32.8 g/dL (32.0-36.0) 05/22/20 08:00 RDW 15.5 % (11.5-14.0) H 05/22/20 08:00 Plt Count 470 10^3/uL (150-450) H 05/22/20 08:00 Lymph % (Auto) Not Reportable 05/18/20 01:30 [place] % (Auto) Not Reportable 05/18/20 01:30 Eos % (Auto) Not Reportable 05/18/20 01:30 Baso % (Auto) Not Reportable 05/18/20 01:30 Absolute Neuts (auto) Not Reportable 05/18/20 01:30 Absolute Lymphs (auto) Not Reportable 05/18/20 01:30 Absolute Monos (auto) Not Reportable 05/18/20 01:30 Absolute Eos (auto) Not Reportable 05/18/20 01:30 Absolute Basos (auto) Not Reportable 05/18/20 01:30 Total Counted 100 05/18/20 01:30 Seg Neutrophils % Not Reportable 05/18/20 01:30 Seg Neuts % (Manual) 95 % (42-78) H 05/18/20 01:30 Lymphocytes % (Manual) 4 % (13-45) L 05/18/20 01:30 Monocytes % (Manual) 1 % (3-13) L 05/18/20 01:30 Eosinophils % (Manual) 0 % (0-6) 05/18/20 01:30 Basophils % (Manual) 0 % (0-2) 05/18/20 01:30 Abs Neuts (Manual) 11.2 10^3/uL (1.7-8.2) H 05/18/20 01:30 Abs Lymphs (Manual) 0.5 10^3/uL (0.5-4.7) 05/18/20 01:30 Abs Monocytes (Manual) 0.1 10^3/uL (0.1-1.4) 05/18/20 01:30 Absolute Eos (Manual) 0.0 10^3/uL (0.0-0.6) 05/18/20 01:30 Abs Basophils (Manual) 0.0 10^3/uL (0.0-0.2) 05/18/20 01:30 Toxic Granulation 1+ 05/18/20 01:30 Platelet Comment ADEQUATE 05/18/20 01:30 Poikilocytosis SLIGHT 05/18/20 01:30 Anisocytosis SLIGHT 05/18/20 01:30 Ovalocytes 1+ 05/18/20 01:30 [place] Cells SLIGHT 05/17/20 05:00 Schistocytes SLIGHT 05/18/20 01:30 PT 23.3 SEC (11.4-15.4) H 05/15/20 09:42 INR 2.06 05/15/20 09:42 APTT 45.5 SEC (23.5-35.8) H 05/15/20 09:42 D-Dimer 0.47 ug/mL (0.00-0.50) 05/15/20 09:42 Carbonic Acid 1.00 mmol/L (1.05-1.35) L 05/18/20 12:34 HCO3/H2CO3 Ratio 26:1 05/18/20 12:34 ABG pH 7.51 (7.35-7.45) H 05/18/20 12:34 ABG pCO2 33.3 mmHg (35-45) L 05/18/20 12:34 ABG pO2 60.7 mmHg (80-100) L 05/18/20 12:34 ABG HCO3 26.2 mmol/L (20-24) H 05/18/20 12:34 ABG Total CO2 27.2 mmol/L (23-27) H 05/18/20 12:34 ABG O2 Saturation 93.6 % (94-98) L 05/18/20 12:34 ABG Base Excess 3.4 mmol/L 05/18/20 12:34 FiO2 2L 05/18/20 12:34 Sodium 139.4 mmol/L (137-145) 05/22/20 08:20 Potassium 4.0 mmol/L (3.6-5.0) 05/22/20 08:20 Chloride 104 mmol/L (98-107) 05/22/20 08:20 Carbon Dioxide 29 mmol/L (22-30) 05/22/20 08:20 Anion Gap 6 (5-19) 05/22/20 08:20 BUN 9 mg/dL (7-20) 05/22/20 08:20 Creatinine 0.42 mg/dL (0.52-1.25) L 05/22/20 08:20 Est GFR ( Amer) > 60 (>60) 05/22/20 08:20 Est GFR (Non-Af Amer) Cancelled 05/19/20 05:15 Est GFR (MDRD) Non-Af > 60 (>60) 05/22/20 08:20 Glucose 94 mg/dL (75-110) 05/22/20 08:20 Lactic Acid 3.1 mmol/L (0.7-2.1) H 05/15/20 22:45 Calcium 8.6 mg/dL (8.4-10.2) 05/22/20 08:20 Phosphorus 1.3 mg/dL (2.5-4.5) L 05/17/20 05:00 Magnesium 1.9 mg/dL (1.6-2.3) 05/22/20 08:20 Ferritin 73.10 ng/mL (17.9-464.0) 05/15/20 09:20 Total Bilirubin 0.5 mg/dL (0.2-1.3) 05/20/20 08:40 Direct Bilirubin 0.3 mg/dL (0.0-0.4) 05/20/20 08:40 Neonat Total Bilirubin Not Reportable 05/20/20 08:40 Neonat Direct Bilirubin Not Reportable 05/20/20 08:40 Neonat Indirect Bili Not Reportable 05/20/20 08:40 AST 23 U/L (17-59) 05/20/20 08:40 ALT 6 U/L (<50) 05/20/20 08:40 Alkaline Phosphatase 55 U/L (38-126) 05/20/20 08:40 Lactate Dehydrogenase 179 U/L (120-246) 05/15/20 09:20 CK-MB (CK-2) < 0.22 ng/mL (<4.55) 05/15/20 09:20 Troponin I 0.025 ng/mL 05/15/20 15:57 NT-Pro-B Natriuret Pep 183 pg/mL (<125) H 05/15/20 09:20 Total Protein 6.4 g/dL (6.3-8.2) 05/20/20 08:40 Albumin 3.1 g/dL (3.5-5.0) L 05/20/20 08:40 Lipase 28.7 U/L (23-300) 05/15/20 09:20 EGFR Cancelled 05/19/20 05:15 Random Cortisol 12.90 ug/dL (None Established) 05/15/20 09:20 Cortisol AM Sample 5.24 ug/dL (4.46-22.7) 05/20/20 08:40 Urine Color YELLOW 05/15/20 10:41 Urine Appearance CLOUDY 05/15/20 10:41 Urine pH 5.0 (5.0-9.0) 05/15/20 10:41 Ur Specific [place] 1.019 05/15/20 10:41 Urine Protein 30 mg/dL (NEGATIVE) H 05/15/20 10:41 Urine Glucose (UA) NEGATIVE mg/dL (NEGATIVE) 05/15/20 10:41 Urine Ketones NEGATIVE mg/dL (NEGATIVE) 05/15/20 10:41 Urine Blood SMALL (NEGATIVE) H 05/15/20 10:41 Urine Nitrite POSITIVE (NEGATIVE) H 05/15/20 10:41 Urine Bilirubin NEGATIVE (NEGATIVE) 05/15/20 10:41 Urine Urobilinogen NEGATIVE mg/dL (<2.0) 05/15/20 10:41 Ur Leukocyte Esterase LARGE (NEGATIVE) H 05/15/20 10:41 Urine WBC (Auto) >182 /HPF 05/15/20 10:41 Urine RBC (Auto) 8 /HPF 05/15/20 10:41 U Hyaline Cast (Auto) 2 /LPF 05/15/20 10:41 Urine Bacteria (Auto) 1+ /HPF 05/15/20 10:41 Urine WBC Clumps MOD /HPF 05/15/20 10:41 Calcium Oxalate Cr Auto RARE /HPF 05/15/20 10:41 Urine Mucus (Auto) RARE /LPF 05/15/20 10:41 Urine Ascorbic Acid NEGATIVE (NEGATIVE) 05/15/20 10:41 Time Trough Drawn 81905/22/20 08:20 Vancomycin Trough 14.6 ug/mL (5.0-20.0) 05/22/20 08:20 COVID-19 Source See comment 05/15/20 10:07 COVID-19 (DIAZ) Not Detected (Not Detect) 05/15/20 10:07 Influenza A (Rapid) NEGATIVE (NEGATIVE) 05/15/20 10:41 Influenza B (Rapid) NEGATIVE (NEGATIVE) 05/15/20 10:41 Group A Strep Rapid NEGATIVE (NEGATIVE) 05/15/20 10:08 05/15/20 05/15/20 05/15/20 09:20 15:08 15:57 CK-MB (CK-2) < 0.22 Troponin I < 0.012 Cancelled 0.025 NT-Pro-B Natriuret Pep 183 H Impressions: Chest X-Ray 05/15/20 00:00 IMPRESSION: 1. Interval line and tube placement as above. 2. Developing bilateral infiltration or edema. copyright 2011 [employer]- All Rights Reserved Chest X-Ray 05/15/20 09:43 IMPRESSION: No evidence of acute cardiopulmonary process. Abdomen X-Ray 05/15/20 15:11 IMPRESSION: Nasoenteric tube tip overlies proximal gastric body with side port just distal to GE junction. Chest X-Ray 05/17/20 05:30 IMPRESSION: IMPROVED AERATION. Chest X-Ray 05/19/20 00:00 IMPRESSION: NO ACUTE FINDINGS. Lumbar Spine CT 05/20/20 00:00 IMPRESSION: Degenerative disc disease, spondylosis, mild concentric disc bulging as described. No significant stenoses. No evidence of sacral osteomyelitis. Modified Barium Swallow 05/21/20 00:00 IMPRESSION: ASPIRATION WITH NECTAR THICK CONSISTENCY. DEEP LARYNGEAL PENETRATION WITH PROBABLE ASPIRATION WITH THIN BARIUM. PLEASE SEE SPEECH PATHOLOGIST REPORT FOR OTHER FINDINGS AND RECOMMENDATIONS. PICC Line Insertion 05/21/20 00:00
--- NOTE | 2020-05-22 17:52 | ADVANCED CARE ---
- Diagnosis (2) Aspiration into lower respiratory tract Diagnosis Current: Yes Resuscitation Status: Do Not Resuscitate Discussion: Family meeting was held with patient and family on 05/22/2020 to discuss his chronic aspiration and high future risk of aspiration pneumonia as a result. The patient would like his sister, Alysia, to be his medical POA. Code status has been changed to DNR/DNI. He is interested in pursuing hospice services at his long- term care facility. Time Spent: >30 minutes
[2020-05-22 18:14] VITALS: BP 146/71
[2020-05-22] MEDS ORDERED: VANCOMYCIN HCL 1,250 MG in DEXTROSE 5%-WATER 250 ML IV SCH (22:00)
== END 2020-05-22 18:43 | DRG 208 ==
LOC: ER 09:28 → EH 15:59 → ICU 17:00 → 4N 05-18 20:34
PROVIDERS: ADMIT Anesthesiology; ATTEND Hospitalist
PROC: 5A1945Z Respiratory Ventilation, 24-96 Consecutive Hours (ICD-10-PCS; principal; 2020-05-15)
PROC: 0BH17EZ Insertion of Endotracheal Airway into Trachea, Via Natural or Artificial Opening (ICD-10-PCS; 2020-05-15)
PROC: 4A133BC Monitoring of Arterial Pressure, Coronary, Percutaneous Approach (ICD-10-PCS; 2020-05-15)
PROC: 02HV33Z Insertion of Infusion Device into Superior Vena Cava, Percutaneous Approach (ICD-10-PCS; 2020-05-15)
PROC: B548ZZA Ultrasonography of Superior Vena Cava, Guidance (ICD-10-PCS; 2020-05-15)
PROC: 02HV33Z Insertion of Infusion Device into Superior Vena Cava, Percutaneous Approach (ICD-10-PCS; 2020-05-21)
PROC: B518ZZA Fluoroscopy of Superior Vena Cava, Guidance (ICD-10-PCS; 2020-05-21)
PROC: B548ZZA Ultrasonography of Superior Vena Cava, Guidance (ICD-10-PCS; 2020-05-21)
DX: T17.900A Unspecified foreign body in respiratory tract, part unspecified causing asphyxiation, initial encounter (principal); A41.01 Sepsis due to Methicillin susceptible Staphylococcus aureus; J15.211 Pneumonia due to Methicillin susceptible Staphylococcus aureus; J96.01 Acute respiratory failure with hypoxia; R65.21 Severe sepsis with septic shock; J69.0 Pneumonitis due to inhalation of food and vomit; G93.41 Metabolic encephalopathy; T83.511A Infection and inflammatory reaction due to indwelling urethral catheter, initial encounter; N39.0 Urinary tract infection, site not specified; M33.20 Polymyositis, organ involvement unspecified; E27.40 Unspecified adrenocortical insufficiency; N17.9 Acute kidney failure, unspecified; I50.22 Chronic systolic (congestive) heart failure; Z66 Do not resuscitate; I50.9 Heart failure, unspecified; E78.00 Pure hypercholesterolemia, unspecified; L89.151 Pressure ulcer of sacral region, stage 1; J43.2 Centrilobular emphysema; R00.0 Tachycardia, unspecified; R13.13 Dysphagia, pharyngeal phase; E86.0 Dehydration; M79.7 Fibromyalgia; G20 Parkinson's disease; B96.20 Unspecified Escherichia coli [E. coli] as the cause of diseases classified elsewhere; B95.62 Methicillin resistant Staphylococcus aureus infection as the cause of diseases classified elsewhere; B95.61 Methicillin susceptible Staphylococcus aureus infection as the cause of diseases classified elsewhere; X58.XXXA Exposure to other specified factors, initial encounter; Y73.8 Miscellaneous gastroenterology and urology devices associated with adverse incidents, not elsewhere classified; Y92.129 Unspecified place in nursing home as the place of occurrence of the external cause; Y93.9 Activity, unspecified; Z20.828 Contact with and (suspected) exposure to other viral communicable diseases; Z86.711 Personal history of pulmonary embolism; Z79.01 Long term (current) use of anticoagulants; Z79.891 Long term (current) use of opiate analgesic; Z79.899 Other long term (current) drug therapy
CPT/HCPCS: 31500; 36415; 36556; 36573; 36620; 71045; 72131; 74019; 74230; 80048; 80053; 80069; 80202; 81001; 82533; 82553; 82728; 82803; 83605; 83615; 83690; 83735; 83880; 84100; 84132; 84484; 85025; 85027; 85379; 85610; 85730; 87040; 87070; 87077; 87086; 87088; 87150; 87186; 87205; 87635; 87804; 87880; 93005; 93010; 93306; 94002; 94003; 94640; 94660; 96361; 96365; 96366; 96368; 99291; C9803; J0692; J0696; J1642; J1650; J1720; J2704; J2930; J3370; J3475; J3480; J3490; J7030; J7040; J7060; J7120; J7512; S0028